=== PATIENT | male | born 1930 | race Caucasian/White ===

== ENCOUNTER 2016-12-26 17:13 | Inpatient (IN) | payer MEDICARE, OTHER ==
[~2016-12-26] VITALS: Ht 172.7 cm; Wt 55.9 kg
[2016-12-26 17:41] LABS: BASO # 0.1 K/mm3 (0.0-0.2); EOS # 0.3 K/mm3 (0.0-0.50); EOS % 2.9 % (0.0-3.0); LARGE UNSTAINED CELL # 0.1 K/mm3 (0.0-0.4); LYMPH # 1.9 K/mm3 (1.5-4.5); LYMPH % 16.1 % (24.0-44.0); MEAN CORPUSCULAR HEMOGLOBIN 30.6 pg (27.0-33.0); MEAN CORPUSCULAR HGB CONC 32.6 g/dl (32.0-36.5); MEAN CORPUSCULAR VOLUME 93.8 fl (80.0-96.0); MONO # 0.4 K/mm3 (0.0-0.8); MONO % 3.8 % (0.0-5.0); NEUTROPHILS # 8.1 K/mm3 (1.8-7.7); PLATELET COUNT, AUTOMATED 210 k/mm3 (150-450); WHITE BLOOD COUNT 10.8 K/mm3 (4.0-10.0)
[2016-12-26 18:11] LABS: ANION GAP 9 MEQ/L (8-16); BLOOD UREA NITROGEN 25 MG/DL (7-18); CALCIUM LEVEL 8.4 MG/DL (8.8-10.2); CARBON DIOXIDE LEVEL 29 MEQ/L (21-32); CHLORIDE LEVEL 101 MEQ/L (98-107); CREATININE FOR GFR 1.02 MG/DL (0.70-1.30); GLOMERULAR FILTRATION RATE > 60.0 (>35); GLUCOSE, FASTING 145 MG/DL (83-110); SODIUM LEVEL 139 MEQ/L (136-145)
[2016-12-26] MEDS ORDERED: DEXTROSE 50% 50 ML SYRINGE IV PRN (20:15)
[2016-12-26] MEDS ORDERED: GLUCOSE 4 GM CHEW TABLET PO PRN (20:15)
[2016-12-26] MEDS ORDERED: PERCOCET 5MG/325MG TAB PO PRN (20:15)
[2016-12-26] MEDS ORDERED: GLUCAGON FOR INJ 1 MG VIAL (J1610) SC PRN (20:15)
[2016-12-26] MEDS ORDERED: ACETAMINOPHEN TAB 650MG DOSE (2X325MG) PO PRN (20:15)
[2016-12-26] MEDS ORDERED: ONDANSETRON 4MG/2ML VIAL (J2405) IV PRN (20:15)
[2016-12-26] MEDS ORDERED: ONDANSETRON 4 MG TAB (S0181) PO PRN (20:15)
[2016-12-26] MEDS: HumaLOG INSULIN (NovoLOG) PER UNIT SC SCH (21:00)
[2016-12-26] MEDS ORDERED: FLOM5CAP PO (21:00)
[2016-12-26] MEDS ORDERED: METF500T PO (21:00)
[2016-12-26] MEDS ORDERED: ASPI81TA7 PO (21:00)
[2016-12-26] MEDS ORDERED: LISI-538 PO (21:00)
[2016-12-26] MEDS ORDERED: ATOR1TAB19 PO (21:00)
--- NOTE | 2016-12-26 21:08 | HPEPDOC ---
Medical History and Physical Date of Admission 12/26/2016 History and Physical HISTORY AND PHYSICAL Date of admission: 12/26/2016 [employer] Worker: Dr. Krishnamurthy Chief complaint: Called in because of pauses on Holter monitor HPI: 86-year-old male with hypertension, BPH, hyperlipidemia, diabetes mellitus type 2, history of kidney stones, who had been being monitored with an outpatient Holter monitor. Per Dr. Krishnamurthy, the patient had been seen in his office on Tuesday for preop clearance for prostatectomy. At that time, he had had some mild tachycardia in the 100 to 110s range, so Dr. Krishnamurthy started him on a small dose of metoprolol and sent him home with a Holter monitor. Dr. Krishnamurthy received a call from the Holter monitor company over the weekend, stating that they were seeing pauses of 3-10s, mostly while the patient was sleeping. Dr. Krishnamurthy revealed the strips and feels that the patient has sick sinus syndrome, and asked the patient to come to the emergency department for admission. Evidently, upon questioning, the patient and family note that the patient has had several episodes of passing out over the last several months. Dr. Krishnamurthy is currently evaluating the patient, but has requested hospitalist admission. Dr. Krishnamurthy told me that he will be calling Dr. Gutierrez and asking him to place the pacemaker tomorrow. Also, per Dr. Krishnamurthy's recommendations, the patient will be admitted to the ICU and the crash cart will be kept by his bedside with pads on. Of note, the patient recently had a pleural effusion in October 2016, which was evaluated by Dr. Hernandez. At that time, he underwent thoracentesis, and pleural fluid studies were unremarkable. The patient states that he has since followed up with Dr. Hernandez, who tells him that the fluid in his lungs is gone. Past medical history: Hypertension, BPH, hyperlipidemia, diabetes mellitus 2, history of kidney stones, new diagnosis sick sinus syndrome Past surgical history: Appendectomy, extraction of kidney stone Family history:: Cancer in his sister, coronary artery disease in his father and brother Social history: The patient denies drinking any alcohol. He currently lives in a house with his son and [id number]. He smokes approximately half a pack per day Allergies: No known drug allergies Review of systems: General: Negative for fever and chills Eyes: Negative for vision changes and ocular discharge ENT: Negative for sore throat and nose bleed; Positive for hearing loss Cardiovascular: Negative for chest pain and palpitations Respiratory: Negative for shortness of breath; positive for occasional cough GI: Negative for nausea, vomiting, diarrhea, constipation Musculoskeletal: Negative for neck and back pain Skin: Negative for rash Neuro: Negative for headache, dizziness, numbness, tingling Psych: Negative for depression and suicidal ideation : Positive for indwelling peck since Aug 2016; per patient, the urine is clear and normal appearing Heme: Negative for bruising and bleeding Home meds: See below Physical exam: Vital signs: Blood pressure 125/73, HR 72, temperature 97.6, O2 sat 96% on room air, RR 16 Gen.: awake, alert, no acute distress Eyes: Extraocular movements intact, normal sclera ENT: Moist mucous membranes Cardiovascular: RRR, no murmurs rubs or gallops Lungs: clear to auscultation on the left, mild rhonchi on right lung base Abdomen: Soft, NT/ND, normal BS Musculoskeletal: normal range of motion Extremities: No peripheral edema Neuro: alert and oriented 3, normal speech, no focal deficits Psych: Normal mood with congruent affect Labs and radiology: See below CBC and BMP are unremarkable Initial troponin is negative BNP 234 1 view chest x-ray shows bullous in the right middle lobe, with questionable consolidation in the right middle lobe Assessment and plan: 86-year-old male with hypertension, BPH, hyperlipidemia, diabetes mellitus type 2, history of kidney stones, who had been being monitored with an outpatient Holter monitor. He is being admitted for sick sinus syndrome, and Dr. Krishnamurthy has plans to place a pacemaker tomorrow. 1. Sick sinus syndrome: The patient has been wearing an outpatient Holter monitor, which has revealed pauses. Dr. Krishnamurthy has requested that the patient be admitted to the ICU with pads on and crash cart at bedside. He told me he will ask Dr. Gutierrez to place a pacemaker tomorrow. We will ensure the patient is nothing by mouth after midnight. Hold home metoprolol. Initial troponin was negative. We will continue to trend these. We will hold his baby aspirin in anticipation of the pacemaker placement. 2. Hypertension: Continue home lisinopril. Hold home metoprolol. 3. BPH: Continue home Flomax. The patient currently has a chronic indwelling Peck catheter, which we will continue. 4. Hyperlipidemia: Continue home statin. 5. Diabetes mellitus type 2: Hold home metformin. Sliding scale insulin while in -house 6. Recent pleural effusion: The patient is now status post thoracentesis, and he states that he has followed up with Dr. Hernandez, who reportedly told him that there is no more fluid in his lungs. Portable chest x-ray reveals a bullous in the right middle lobe, as well as a questionable consolidation. At this time, the patient is afebrile with a normal white count. He is clinically well- appearing, although he does endorse an intermittent cough. On exam, his right lower lung craig do have an occasional rhonchi. I do not believe at this time, that it represents a pneumonia, but we will plan to get a two-view x-ray to better evaluate the lung craig. DVT prophylaxis: SCDs Dispo: place in observation status on the service of Dr. Walker CODE STATUS: Full code Vital Signs see above Laboratory Data Labs 24H Laboratory Tests 2 12/26/16 17:27: Anion Gap 9, B-Type Natriuretic Peptide 234H, White Blood Count 10.8H, Red Blood Count 4.82, Hemoglobin 14.7, Hematocrit 45.2, Mean Corpuscular Volume 93.8 , Mean Corpuscular Hemoglobin 30.6, Mean Corpuscular Hemoglobin Concent 32.6, Red Cell Distribution Width 15.0H, Platelet Count 210, Neutrophils (%) (Auto) 75.0H, Lymphocytes (%) (Auto) 16.1L, Monocytes (%) (Auto) 3.8, Eosinophils (%) ( Auto) 2.9, Basophils (%) (Auto) 1.0, Neutrophils # (Auto) 8.1H, Lymphocytes # ( Auto) 1.9, Monocytes # (Auto) 0.4, Eosinophils # (Auto) 0.3, Basophils # (Auto) 0.1, Blood Urea Nitrogen 25H, Creatinine 1.02, Sodium Level 139, Potassium Level 4.0, Chloride Level 101, Carbon Dioxide Level 29, Calcium Level 8.4L, Total Creatine Kinase 101, Creatine Kinase MB 4.8H, Creatine Kinase MB Relative Index 4.75H, Glomerular Filtration Rate > 60.0, Large Unclassified Cells # 0.1, Large Unclassified Cells % 1.0, Troponin I 0.03 CBC/BMP Laboratory Tests 12/26/16 17:27 Calcium Level 8.4 L, Total Creatine Kinase 101, Red Blood Count 4.82, Mean Corpuscular Volume 93.8, Mean Corpuscular Hemoglobin 30.6, Mean Corpuscular Hemoglobin Concent 32.6, Red Cell Distribution Width 15.0 H, Neutrophils (%) ( Auto) 75.0 H, Lymphocytes (%) (Auto) 16.1 L, Monocytes (%) (Auto) 3.8, Eosinophils (%) (Auto) 2.9, Basophils (%) (Auto) 1.0, Neutrophils # (Auto) 8.1 H , Lymphocytes # (Auto) 1.9, Monocytes # (Auto) 0.4, Eosinophils # (Auto) 0.3, Basophils # (Auto) 0.1 Home Medications Scheduled Aspirin (Aspirin) 81 Mg Tab 81 MG PO QPM Atorvastatin Calcium (Atorvastatin Calcium) 10 Mg Tab 10 MG PO DAILY Lisinopril (Lisinopril) 20 Mg Tab 20 MG PO DAILY Metformin Hydrochloride (Metformin HCl) 500 Mg Tab 500 MG PO TID Tamsulosin Hydrochloride (Flomax) 0.4 Mg Cap 0.4 MG PO DAILY Allergies Coded Allergies: No Known Drug Allergy (Unverified Allergy, Unknown, 02/28/13) LIV IBARRA Dec 26, 2016 21:08
--- NOTE | 2016-12-26 21:55 | EDDOCDS ---
Physician Documentation [facility] Name: Modesto Ray Age: 86 yrs Sex: Male : 1930 Arrival Date: 12/26/2016 Time: 17:13 Bed 1 Private MD: Henri Krishnamurthy MD Disposition: 12/26/16 20:01 Hospitalization ordered by Barbara Loco for Inpatient Admission. Preliminary diagnosis is Sick sinus syndrome. - Bed requested for M ICU. - Status is Inpatient Admission. ttb - Condition is Stable. - Problem is an acute exacerbation. - Symptoms have improved. Historical: - Allergies: no known allergies; - Home Meds: 1. aspirin 81 mg Oral chew once daily 2. tamsulosin 0.4 mg oral cp24 once daily 3. atorvastatin 10 mg oral tab once daily 4. metformin 500 mg Oral tab tid 5. lisinopril 20 mg Oral tab once daily - PMHx: COPD; Diabetes - NIDDM: controlled; Hypertension; Renal Calculi; Hypercholesterolemia; BPH; - PSHx: kidney stone removal; Appendectomy; - Social history: No barriers to communication noted, The patient speaks fluent Bermudian, Smoking status: Patient uses tobacco products, current every day smoker. - Family history: Not pertinent. - : The pt / caregiver states he / she is not on anticoagulants. Home medication list is obtained from family members. - Exposure Risk Screening:: None identified. Vital Signs: 12/26 17:14 BP 138 / 76; Pulse 92; Resp 16 S; Temp 97.2(O); Pulse Ox 94% on R/A; Weight 58.97 kg / dd6 130.01 lbs (R); Height 5 ft. 8 in. (172.72 cm) (R); 17:20 BP 128 / 87 (auto/); ttb 17:23 Pulse 95 MON; Pulse Ox 99% ; ttb 17:30 BP 141 / 63 (auto/); ttb 17:30 Pulse 86 MON; Resp 18 S; Pulse Ox 99% on R/A; ttb 17:45 Pulse 84 MON; Pulse Ox 97% ; ttb 17:45 BP 133 / 61 (auto/); ttb 18:00 Pulse 97 MON; Pulse Ox 97% ; ttb 18:00 BP 102 / 58 (auto/); ttb 18:15 BP 123 / 64 (auto/); ttb 18:15 Pulse 73 MON; Pulse Ox 96% ; ttb 18:30 Pulse 80 MON; Pulse Ox 96% ; ttb 18:30 BP 110 / 63 (auto/); ttb 18:45 BP 111 / 65 (auto/); ttb 18:45 Pulse 73 MON; Pulse Ox 96% ; ttb 19:00 Pulse 85 MON; Pulse Ox 96% ; ttb 19:00 BP 111 / 61 (auto/); ttb 19:15 BP 116 / 72 (auto/); ttb 19:15 Pulse 72 MON; Pulse Ox 97% ; ttb 19:29 Pulse 82 MON; Pulse Ox 97% ; ttb 19:30 BP 121 / 61 (auto/); ttb 19:45 BP 130 / 61 (auto/); ttb 19:45 Pulse 85 MON; Resp 18; Pulse Ox 97% on R/A; Pain 0/10; ttb 20:00 Pulse 72 MON; Pulse Ox 96% ; ttb 20:00 BP 126 / 68 (auto/); ttb 20:15 BP 122 / 75 (auto/); ttb 20:15 Pulse 72 MON; Pulse Ox 95% ; ttb 20:30 BP 125 / 73 (auto/); ttb 20:30 Pulse 74 MON; Pulse Ox 96% ; ttb 20:45 Pulse 72 MON; Pulse Ox 96% ; ttb 20:45 BP 122 / 84 (auto/); ttb 21:00 Pulse 87 MON; Pulse Ox 96% ; ttb 21:00 BP 142 / 73 (auto/); ttb 21:14 Pulse 74 MON; Pulse Ox 96% ; ttb 21:15 BP 123 / 73 (auto/); ttb 21:30 BP 122 / 71 (auto/); ttb 21:30 Pulse 72 MON; Resp 16 S; Pulse Ox 96% ; Pain 0/10; ttb 21:54 Temp 98.5(O); ttb 17:14 Body Mass Index 19.77 (58.97 kg, 172.72 cm) dd6 MDM: 17:24 [employer]ite Renewal Inspector/Pulse Ox/q 30 min VS ordered. fg 17:24 IV Saline Lock ordered. fg 17:24 Rhythm Strip to chart ordered. fg 17:24 Undress patient appropriately for examination ordered. fg 17:25 B-Type Natiuretic Peptide Ordered. EDMS 17:25 Basic Metabolic Profile Ordered. EDMS 17:25 CBC with Diff Ordered. EDMS 17:25 Cardiac Injury Profile Ordered. EDMS 17:25 Troponin Ordered. EDMS 17:25 ECG WITH READING ER PHYS+CARDIAG ordered. EDMS 18:01 Chest, 1 view Ordered. EDMS 19:16 Financial registration complete. [email or web address] 19:17 B-Type Natiuretic Peptide Reviewed. mm11 19:17 Basic Metabolic Profile Reviewed. mm11 19:17 CBC with Diff Reviewed. mm11 19:17 Cardiac Injury Profile Reviewed. mm11 19:17 Troponin Reviewed. mm11 19:18 [facility] Payment Agreement was scanned into [employer] and attached to record. [email or web address] 20:53 CARDIAC MARKER PANEL Ordered. EDMS 20:53 CARDIAC MARKER PANEL Ordered. EDMS 20:53 CARDIAC MARKER PANEL Ordered. EDMS 20:53 CBC WITH DIFFERENTIAL Ordered. EDMS 20:53 BASIC METABOLIC PROFILE Ordered. EDMS 20:53 MAGNESIUM LEVEL Ordered. EDMS 20:55 Chest, 2 view PA, Lat Ordered. EDMS 20:55 Admission / Observation Status ordered. EDMS 20:56 LOW SODIUM DIET ordered. EDMS 20:56 NPO FOR TEST/PROCEDURE ordered. EDMS 21:45 MAGNESIUM LEVEL Ordered. EDMS Signatures: Dispatcher [employer] EDMS Jeffrey Hills, DO [id number] Yvette العلي, RN RN spencerr Qian Alvarado, [facility] ar3 Ronda Ellis RN RN ttb Gill, Frances, MD MD fg Sorenson, Kimberly, Reg Reg [email or web address] The chart was reviewed and I authenticate all verbal orders and agree with the evaluation and treatment provided.Corrections: (The following items were deleted from the chart) 18:01 17:25 Chest, 2 view (PA\E\Lat)+XR ordered. EDMS EDMS Attachments: 19:18 [facility] Payment Agreement [email or web address]
--- NOTE | 2016-12-26 21:55 | EDDOCDS ---
Nurse's Notes [facility] Name: Modesto Ray Age: 86 yrs Sex: Male : 1930 Arrival Date: 12/26/2016 Time: 17:13 Bed 1 Private MD: Henri Krishnamurthy MD Diagnosis: Sick sinus syndrome Presentation: 12/26 17:19 Presenting complaint: daughter states wearing holter monitor over the weekend and jjr called by Dr Krishnamurthy today telling him to report to ED for bradycardia with pauses. Adult Sepsis Screening: The patient does not have new or worsening altered mentation. Patient's respiratory rate is less than 22. Systolic blood pressure is greater than 100. Patient has a qSOFA score of 0- Negative Sepsis Screen. Suicide/Homicide risk assessment- the patient denies having any suicidal and/or homicidal ideations and does not present with any other emotional, behavioral or mental health complaints. Status: Patient is not a dispatcher service or work or dependent. Transition of care: patient was not received from another setting of care. 17:19 Acuity: BJ Level 3 jjr 17:19 Method Of Arrival: Walkin/Carried/Asstd jjr 17:30 81mg as per norm. ttb Triage Assessment: 17:25 General: Appears in no apparent distress, slender, well nourished, well groomed, jjr Behavior is appropriate for age. Pain: Denies pain. Neurological: No deficits noted. Cardiovascular: Chest pain is denied. 17:25 Cardiovascular: Chest pain is described as Pain is 0 out of 10 on a pain scale. ttb radiates Does not radiate. episodes none began no onset of pain. Historical: - Allergies: no known allergies; - Home Meds: 1. aspirin 81 mg Oral chew once daily 2. tamsulosin 0.4 mg oral cp24 once daily 3. atorvastatin 10 mg oral tab once daily 4. metformin 500 mg Oral tab tid 5. lisinopril 20 mg Oral tab once daily - PMHx: COPD; Diabetes - NIDDM: controlled; Hypertension; Renal Calculi; Hypercholesterolemia; BPH; - PSHx: kidney stone removal; Appendectomy; - Social history: No barriers to communication noted, The patient speaks fluent Thai, Smoking status: Patient uses tobacco products, current every day smoker. - Family history: Not pertinent. - : The pt / caregiver states he / she is not on anticoagulants. Home medication list is obtained from family members. - Exposure Risk Screening:: None identified. Screenin:30 Screening information is obtained from the patient. Fall risk: No risks identified. ttb Assistance ADL's: requires no assistance with activities of daily living. Abuse/DV Screen: The patient / caregiver reports he/she is: not in a situation that causes fear, pain or injury. Nutritional screening: On diabetic diet. Advance Directives: There is an active Power of Trend Investigator, son and daughter. home support is adequate. Assessment: 17:37 General: Appears in no apparent distress, comfortable, slender, Behavior is appropriate ttb for age, cooperative, pleasant. Pain: Denies pain. Neurological: Level of Consciousness is awake, alert, Moves all extremities. Speech is normal, Facial symmetry appears normal. EENT: [place]. Cardiovascular: Heart tones S1 S2 present Rhythm is irregular Chest pain is denied. Respiratory: Airway is patent Respiratory effort is even, unlabored, Respiratory pattern is regular, symmetrical, Breath sounds with rhonchi bilaterally. the patient has mild shortness of breath Denies cough, shortness of breath. GI: Denies nausea, vomiting, pain. Derm: Skin is normal. 18:30 Reassessment: Patient appears in no apparent distress at this time. pt resting on ttb stretcher. NAD noted. Pt remains on monitor with family at bedside. Awaiting MDvisit.. Neurological: Level of Consciousness is awake, alert. Cardiovascular: Rhythm is atrial flutter 3:1 Chest pain is denied. Respiratory: Airway is patent Denies cough, shortness of breath. 19:30 Reassessment: Patient appears in no apparent distress at this time. General: Appears in ttb no apparent distress, comfortable. Pain: Denies pain. Neurological: Level of Consciousness is awake, alert. Cardiovascular: Rhythm is atrial flutter Chest pain is denied. 19:30 Adult Sepsis Screening: The patient does not have new or worsening altered mentation. ttb Patient's respiratory rate is less than 22. Systolic blood pressure is greater than 100. Patient has a qSOFA score of 0- Negative Sepsis Screen. 20:00 General: Cardiology in to see pt at this time. Pt to be admitted to ICU for procedure. ttb 20:30 General: Appears in no apparent distress, comfortable, Hospitalist in to see pt at this ttb time. Family remains at bedside.. 21:00 Reassessment: Patient appears in no apparent distress at this time. peck bag changed ttb per pt request. Pt able to move on stretcher without diff. . 21:15 General: TIMBER FALLER contact, unavailable at this time.. ttb 21:40 General: Dr Loco aware of pt having 19 beat run of V tach. Pt awake and alert, sls1 denies sob or chest pain. Strips documented, no new orders given. 21:42 General: Vtach captured at this time by CN. Pt continues to rest on stretcher with no ttb distress noted. Family at bedside. TIMBER FALLER contacted again -- will return phonecall.... 21:52 General: report given to GISELE Diehl on ICU. Pt transferred at this time.. ttb Vital Signs: 17:14 BP 138 / 76; Pulse 92; Resp 16 S; Temp 97.2(O); Pulse Ox 94% on R/A; Weight 58.97 kg dd6 (R); Height 5 ft. 8 in. (172.72 cm) (R); 17:20 BP 128 / 87 (auto/); ttb 17:23 Pulse 95 MON; Pulse Ox 99% ; ttb 17:30 BP 141 / 63 (auto/); ttb 17:30 Pulse 86 MON; Resp 18 S; Pulse Ox 99% on R/A; ttb 17:45 Pulse 84 MON; Pulse Ox 97% ; ttb 17:45 BP 133 / 61 (auto/); ttb 18:00 Pulse 97 MON; Pulse Ox 97% ; ttb 18:00 BP 102 / 58 (auto/); ttb 18:15 BP 123 / 64 (auto/); ttb 18:15 Pulse 73 MON; Pulse Ox 96% ; ttb 18:30 Pulse 80 MON; Pulse Ox 96% ; ttb 18:30 BP 110 / 63 (auto/); ttb 18:45 BP 111 / 65 (auto/); ttb 18:45 Pulse 73 MON; Pulse Ox 96% ; ttb 19:00 Pulse 85 MON; Pulse Ox 96% ; ttb 19:00 BP 111 / 61 (auto/); ttb 19:15 BP 116 / 72 (auto/); ttb 19:15 Pulse 72 MON; Pulse Ox 97% ; ttb 19:29 Pulse 82 MON; Pulse Ox 97% ; ttb 19:30 BP 121 / 61 (auto/); ttb 19:45 BP 130 / 61 (auto/); ttb 19:45 Pulse 85 MON; Resp 18; Pulse Ox 97% on R/A; Pain 0/10; ttb 20:00 Pulse 72 MON; Pulse Ox 96% ; ttb 20:00 BP 126 / 68 (auto/); ttb 20:15 BP 122 / 75 (auto/); ttb 20:15 Pulse 72 MON; Pulse Ox 95% ; ttb 20:30 BP 125 / 73 (auto/); ttb 20:30 Pulse 74 MON; Pulse Ox 96% ; ttb 20:45 Pulse 72 MON; Pulse Ox 96% ; ttb 20:45 BP 122 / 84 (auto/); ttb 21:00 Pulse 87 MON; Pulse Ox 96% ; ttb 21:00 BP 142 / 73 (auto/); ttb 21:14 Pulse 74 MON; Pulse Ox 96% ; ttb 21:15 BP 123 / 73 (auto/); ttb 21:30 BP 122 / 71 (auto/); ttb 21:30 Pulse 72 MON; Resp 16 S; Pulse Ox 96% ; Pain 0/10; ttb 21:54 Temp 98.5(O); ttb 17:14 Body Mass Index 19.77 (58.97 kg, 172.72 cm) dd6 Vitals: 17:14 Log In Time: December 26, 2016 at 17:12. dd6 17:16 RN notified that patient meets Red Flag criteria. dd6 ED Course: 17:14 Patient visited by Geovanny Ritter PCA. dd6 17:14 Henri Krishnamurthy is Private Physician. dd6 17:14 Patient moved to Waiting dd6 17:19 Patient moved to 1 dy 17:21 Triage Initiated jjr 17:23 Mela España MD is Attending Physician. fg 17:23 Patient visited by Mela España MD. fg 17:25 Patient visited by Yvette العلي RN. jjr 17:30 The patient / caregiver is instructed regarding the plan of care and ED course. ttb Accompanied by Family Member, Patient has correct armband on for positive identification. Placed in gown. Bed in low position. Call light in reach. Side rails up X2. advertising columnist on. Pulse ox on. NIBP on. 17:30 Inserted peripheral IV: 20gauge IV in right antecubital area and blood collected. ttb Patient tolerated the procedure well. Labs drawn. (by ED staff). 17:39 Patient visited by José Miguel Tolliver. rn1 17:39 EKG done. (by ED staff). Reviewed by Mela España MD. rn1 17:41 Patient visited by Ronda Ellis RN. ttb 18:17 Patient visited by Peg Catherine RN. kc3 19:03 Patient visited by Jered Schroeder PCA. kb5 19:15 Attending Physician role handed off by Mela España MD mm11 19:15 Jeffrey Hills DO is Attending Physician. mm11 19:18 [facility] Payment Agreement was scanned into [employer] and attached to record. ks16 19:39 Patient visited by Jeffrey Hills DO. mm11 20:00 Patient visited by Ronda Ellis RN. ttb 20:01 Patient visited by Ronda Ellis RN. ttb 20:01 Barbara Loco is Hospitalizing Provider. mm11 20:17 Sherwin Vaz rhinologist. nq 20:44 Patient visited by Ronda Ellis RN. ttb 21:46 Patient visited by Ronda Ellis RN. ttb 21:52 No procedures done that require assistance. ttb Order Results: Lab Order: B-Type Natiuretic Peptide; SPEC'M 12/26/16 17:27 Test: BRAIN NATRIURETIC PEPTIDE; Value: 234; Range: <100; Abnormal: Above high normal; Units: PG/ML; Status: F Lab Order: Basic Metabolic Profile; SPEC'M 12/26/16 17:27 Test: GLUCOSE, FASTING; Value: 145; Range: 83-110; Abnormal: Above high normal; Units: MG/DL; Status: F Test: BLOOD UREA NITROGEN; Value: 25; Range: 7-18; Abnormal: Above high normal; Units: MG/DL; Status: F Test: CREATININE FOR GFR; Value: 1.02; Range: 0.70-1.30; Units: MG/DL; Status: F Test: GLOMERULAR FILTRATION RATE; Value: > 60.0; Range: >35; Status: F Test: SODIUM LEVEL; Value: 139; Range: 136-145; Units: MEQ/L; Status: F Test: POTASSIUM SERUM; Value: 4.0; Range: 3.5-5.1; Units: MEQ/L; Status: F Test: CHLORIDE LEVEL; Value: 101; Range: 98-107; Units: MEQ/L; Status: F Test: CARBON DIOXIDE LEVEL; Value: 29; Range: 21-32; Units: MEQ/L; Status: F Test: ANION GAP; Value: 9; Range: 8-16; Units: MEQ/L; Status: F Test: CALCIUM LEVEL; Value: 8.4; Range: 8.8-10.2; Abnormal: Below low normal; Units: MG/DL; Status: F Test Note: ; Units are mL/min/1.73 m2 Chronic Kidney Disease Staging per NKF: Stage I & II GFR >=60 Normal to Mildly Decreased Stage III GFR 30-59 Moderately Decreased Stage IV GFR 15-29 Severely Decreased Stage V GFR <15 Very Little GFR Left ESRD GFR <15 on FITNESS CENTRE MANAGER Lab Order: CBC with Diff; SPEC'M 12/26/16 17:27 Test: WHITE BLOOD COUNT; Value: 10.8; Range: 4.0-10.0; Abnormal: Above high normal; Units: K/mm3; Status: F Test: RED BLOOD COUNT; Value: 4.82; Range: 4.30-6.10; Units: M/mm3; Status: F Test: HEMOGLOBIN; Value: 14.7; Range: 14.0-18.0; Units: g/dl; Status: F Test: HEMATOCRIT; Value: 45.2; Range: 42.0-52.0; Units: %; Status: F Test: MEAN CORPUSCULAR VOLUME; Value: 93.8; Range: 80.0-96.0; Units: fl; Status: F Test: MEAN CORPUSCULAR HEMOGLOBIN; Value: 30.6; Range: 27.0-33.0; Units: pg; Status: F Test: MEAN CORPUSCULAR HGB CONC; Value: 32.6; Range: 32.0-36.5; Units: g/dl; Status: F Test: RED CELL DISTRIBUTION WIDTH; Value: 15.0; Range: 11.5-14.5; Abnormal: Above high normal; Units: %; Status: F Test: PLATELET COUNT, AUTOMATED; Value: 210; Range: 150-450; Units: k/mm3; Status: F Test: NEUTROPHILS %; Value: 75.0; Range: 36.0-66.0; Abnormal: Above high normal; Units: %; Status: F Test: LYMPH %; Value: 16.1; Range: 24.0-44.0; Abnormal: Below low normal; Units: %; Status: F Test: MONO %; Value: 3.8; Range: 0.0-5.0; Units: %; Status: F Test: EOS %; Value: 2.9; Range: 0.0-3.0; Units: %; Status: F Test: BASO %; Value: 1.0; Range: 0.0-1.0; Units: %; Status: F Test: LARGE UNSTAINED CELL %; Value: 1.0; Range: 0.0-4.0; Units: %; Status: F Test: NEUTROPHILS #; Value: 8.1; Range: 1.8-7.7; Abnormal: Above high normal; Units: K/mm3; Status: F Test: LYMPH #; Value: 1.9; Range: 1.5-4.5; Units: K/mm3; Status: F Test: MONO #; Value: 0.4; Range: 0.0-0.8; Units: K/mm3; Status: F Test: EOS #; Value: 0.3; Range: 0.0-0.50; Units: K/mm3; Status: F Test: BASO #; Value: 0.1; Range: 0.0-0.2; Units: K/mm3; Status: F Test: LARGE UNSTAINED CELL #; Value: 0.1; Range: 0.0-0.4; Units: K/mm3; Status: F Lab Order: Cardiac Injury Profile; SPEC'M 12/26/16 17:27 Test: CPK CREATINE PHOSPHOKINASE; Value: 101; Range: 39-308; Units: U/L; Status: F Test: CK-MB VALUE MASS; Value: 4.8; Range: 0.0-3.6; Abnormal: Above high normal; Units: NG/ML; Status: F Test: MB/CK RELATIVE INDEX; Value: 4.75; Range: < OR =4; Abnormal: Above high normal; Status: F Test Note: ; DIAGNOSIS CRITERIA MMB ng/ml Relative Index (RI) NON-AMI < or = 5 N/A RENEE ZONE > 5 < or = 4 AMI > 5 > 4 Lab Order: Troponin; SPEC'M 12/26/16 17:27 Test: TROPONIN I; Value: 0.03; Range: < 0.10; Units: NG/ML; Status: F Test Note: ; Troponin I Reference Interval for 3scale LOCI: 99th Percentile= 0.00-0.045 ng/ml Risk Stratification: <= 0.10 ng/ml Decreased Risk for Adverse Clinical Events. 0.10-1.50 ng/ml Increased Risk for Adverse Clinical Events. Evaluation of additional criterion and/or repeat testing in 2-6 hours is suggested to rule out myocardial damage. >= 1.50 ng/ml Indicative of Myocardial Injury. Outcome: 17:30 No special radiology studies were completed. ttb 20:01 Decision to Hospitalize by Provider. mm11 21:30 Admission hand-off: Report called to TIMBER FALLER - unavailable at this time. ttb 21:45 Discharge Assessment: Patient awake and alert. patient administered narcotics - no. ttb 21:52 The following High Risk Discharge criteria are identified: Yes, admit to ICU/OR. ttb Admitted to ICU accompanied by nurse, accompanied by tech, family with patient, via stretcher, on monitor, with chart. Condition: stable. Instructed on admission process. Admission hand-off: Report called to GISELE Diehl on ICU. Property :Personal belongings accompany Pt. wallet given to family. 21:54 Patient left the ED. ttb Signatures: Jett Tobin, RN Jered Grissom, FURNITURE CLEANER FURNITURE CLEANER kb5 Jeffrey Hills DO DO mm11 Yvette العلي, RN RN Geovanny Greer, FURNITURE CLEANER FURNITURE CLEANER dd6 Lenka Muller RN RN sls1 Sherwin Vaz Teresa, RN RN ttb José Miguel Tolliver rn1 Mela España MD MD fg Crane, KelsiRN RN kc3 Kat Benton, Reg Reg ks16 Corrections: (The following items were deleted from the chart) 20:00 19:59 Aspirin was not taken prior to arrival. ttb ttb MTDD
[2016-12-26 22:00] VITALS: BP_SYST 122; BP_SYST 139; BP_DIAS 60; BP_DIAS 73
[2016-12-26 22:08] LABS: MAGNESIUM LEVEL 1.4 MG/DL (1.8-2.4)
[2016-12-26] MEDS ORDERED: PREVNAR 13 VACCINE SYRINGE (CPT CODE:90670) IM SCH (23:45)
[2016-12-27] VITALS (12 sets, daily range): BP systolic 115–159; BP diastolic 53–85
[2016-12-27 05:02] LABS: BASO # 0.1 K/mm3 (0.0-0.2); BASO % 1.1 % (0.0-1.0); EOS # 0.3 K/mm3 (0.0-0.50); EOS % 3.3 % (0.0-3.0); LARGE UNSTAINED CELL # 0.1 K/mm3 (0.0-0.4); LARGE UNSTAINED CELL % 1.3 % (0.0-4.0); LYMPH # 2.3 K/mm3 (1.5-4.5); LYMPH % 24.5 % (24.0-44.0); MEAN CORPUSCULAR HEMOGLOBIN 30.1 pg (27.0-33.0); MEAN CORPUSCULAR HGB CONC 32.2 g/dl (32.0-36.5); MEAN CORPUSCULAR VOLUME 93.5 fl (80.0-96.0); MONO # 0.5 K/mm3 (0.0-0.8); MONO % 5.8 % (0.0-5.0); NEUTROPHILS # 5.7 K/mm3 (1.8-7.7); NEUTROPHILS % 64.1 % (36.0-66.0); PLATELET COUNT, AUTOMATED 191 k/mm3 (150-450); WHITE BLOOD COUNT 8.8 K/mm3 (4.0-10.0)
[2016-12-27 05:15] LABS: ANION GAP 7 MEQ/L (8-16); BLOOD UREA NITROGEN 19 MG/DL (7-18); CALCIUM LEVEL 8.1 MG/DL (8.8-10.2); CARBON DIOXIDE LEVEL 31 MEQ/L (21-32); CHLORIDE LEVEL 104 MEQ/L (98-107); CREATININE FOR GFR 0.87 MG/DL (0.70-1.30); GLOMERULAR FILTRATION RATE > 60.0 (>35); GLUCOSE, FASTING 85 MG/DL (83-110); MAGNESIUM LEVEL 1.3 MG/DL (1.8-2.4); POTASSIUM SERUM 4.1 MEQ/L (3.5-5.1); SODIUM LEVEL 142 MEQ/L (136-145)
[2016-12-27] MEDS: HumaLOG INSULIN (NovoLOG) PER UNIT SC SCH ×4 (07:30→20:42)
[2016-12-27] MEDS ORDERED: LR 1,000 ML IV SCH ×2 (08:30→18:00)
[2016-12-27] MEDS: ATORVASTATIN 10 MG TAB PO SCH (08:46)
[2016-12-27] MEDS: TAMSULOSIN 0.4 MG CAP PO SCH (08:46)
[2016-12-27] MEDS: LISINOPRIL 20 MG TAB PO SCH (08:46)
--- NOTE | 2016-12-27 11:24 | IPN ---
DATE: 12/27/2016 Mr. Ray has no complaints today. He tells me that he slept well and is awaiting pacemaker placement. Denies any chest pain or shortness of breath. Vital Signs: Blood pressure is 148/68. Heart rate is in 70s to 90s, but currently at the time of my evaluation is 110. He is afebrile. Saturation is 97% in room air. He is alert, oriented and appropriate. His jugular venous distention (JVP) is not elevated. Lungs are relatively clear, even though there are some rare rhonchi. Heart exam reveals regular tachycardia. I do not appreciate gallop or rub. Abdomen is soft, nontender. No peripheral edema. Neurologically, he is very hard of hearing, but otherwise intact. Basic metabolic panel is within normal range other than magnesium of 1.3. Basic metabolic panel is normal. ASSESSMENT/PLAN: Mr. Ray is a 86-year-old man who apparently was seen by Dr. Krishnamurthy last week and started on low-dose beta robby because of mild tachycardia. Simultaneously, Holter monitor was applied and revealed episodes of sinus arrest up to 8 or 9 seconds at a time. Unfortunately, I do not have those available for the record, it is based on personal communication with Dr. Krishnamurthy. The patient is tentatively scheduled for permanent pacemaker placement later today. He has not been on any anticoagulation and he is hemodynamically stable. He denies any history of syncope.
--- NOTE | 2016-12-27 11:25 | REP ---
Clinical: Chest pain. Comparison: 11 10 16. Findings: Opacity involving the basilar segment right upper lobe as well as scattered perihilar and basilar opacities are again identified. No obvious effusion. No pneumothorax. Mediastinum and cardiac silhouette normal. Skeletal structures are intact. Impression: Scattered areas of infiltrate primarily involving the basilar right upper lobe as well as perihilar and bilateral lower lobes. Signed by Jairo Grajeda MD 12/27/2016 02:49 A
[2016-12-27] MEDS ORDERED: SLF 3 ML SYR IV PRN (11:45)
[2016-12-27] MEDS ORDERED: LIDOCAINE 1% SDV INJ 30 ML VIAL As Ordered ONE (11:57)
[2016-12-27] MEDS ORDERED: ISOVUE-300 61% 50ML VIAL (Q9967) As Ordered ONE (11:57)
--- NOTE | 2016-12-27 12:49 | REP ---
Chest x-ray: Two views. History: Possible infiltrate on portable chest x-ray from December 26, 2016. Findings: The November 10, 2016 prior chest x-ray is also reviewed. Right upper lobe and right middle lobe distribution infiltrate and/or atelectasis again seen unchanged from recent chest x-ray and slightly improved when compared with the November 10, 2016 study. The left lung is clear. No pleural effusion is seen. No new infiltrate is noted. Heart is not enlarged. EKG electrodes are seen. Impression: Right upper and middle lobe distribution infiltrate versus atelectasis, somewhat improved. No new infiltrate seen. Signed by Perfecto Leong MD 12/27/2016 01:25 P
[2016-12-27] MEDS: SLF 3 ML SYR IV SCH ×2 (14:21→20:43)
--- NOTE | 2016-12-27 14:25 | IPNPDOC ---
Assessment/Plan Date Seen The patient was seen on 12/27/16. Plan / VTE VTE Prophylaxis Ordered?: Yes Plan Plan Text 1. Sick sinus syndrome: Patient noted to have 8-9 second pauses on holter monitor as outpatient while being monitored by Dr. Krishnamurthy as an outpatient for preoperative work up , However, he has been asymptomatic during these events No overnight events here Betablocker held Patient scheduled for a permanent pacemaker placement later today 2. Hypertension Continue home lisinopril. Hold home metoprolol. 3. BPH Continue home Flomax. 4. Hyperlipidemia Continue home statin. 5. Diabetes mellitus type 2 Sliding scale insulin 6. Hypomagnesemia Serum Mag noted to be 1.3 this AM IV Mag Run ordered Will check levels in AM DVT prophylaxis: SCDs Dispo: Anticipate D/C in the next 24 hrs, pending cardiac clearance. Subjective Review of Systems CC/HPI The patient is a 86-year-old male admitted with a reason for visit of Sick Sinus Syndrome. General: Denies: Chills, Night Sweats Constitutional: Denies: Chills, Fever Eyes: Denies: Pain, Vision change ENT: Denies: Ear Pain, Head Aches Skin: Denies: Lesions, Rash Pulmonary: Denies: Cough, Dyspnea Cardiovascular: Denies: Chest Pain, Palpitations Gastrointestinal: Denies: Nausea, Vomiting Genitourinary: Denies: Dysuria, Frequency Hematologic: Denies: Bleeding Excessively, Bruising Objective Physical Examination General Exam: Positive: Alert, Cooperative, No Acute Distress ENT Exam: Positive: Atraumatic, Mucous membr. moist/pink Chest Exam: Positive: Clear to auscultation, Normal air movement Heart Exam: Positive: Normal S1, Normal S2, Rate Normal Abdomen Exam: Positive: Soft, Negative: Tenderness Extremity Exam: Negative: Swelling, Tenderness Vital Signs/I&O Vital Signs Date Time Temp Pulse Resp B/P Pulse Ox O2 Delivery O2 Flow Rate FiO2 12/27/16 12:00 97.9 108 18 146/80 94 Room Air 12/26/16 22:00 98 I&O- Last 24 Hours up to 6 AM 12/27/16 06:00 Intake Total 0 ml Output Total 800 ml Balance -800 ml Laboratory Data Labs 24H Laboratory Tests 2 12/26/16 17:27: Anion Gap 9, B-Type Natriuretic Peptide 234H, White Blood Count 10.8H, Red Blood Count 4.82, Hemoglobin 14.7, Hematocrit 45.2, Mean Corpuscular Volume 93.8 , Mean Corpuscular Hemoglobin 30.6, Mean Corpuscular Hemoglobin Concent 32.6, Red Cell Distribution Width 15.0H, Platelet Count 210, Neutrophils (%) (Auto) 75.0H, Lymphocytes (%) (Auto) 16.1L, Monocytes (%) (Auto) 3.8, Eosinophils (%) ( Auto) 2.9, Basophils (%) (Auto) 1.0, Neutrophils # (Auto) 8.1H, Lymphocytes # ( Auto) 1.9, Monocytes # (Auto) 0.4, Eosinophils # (Auto) 0.3, Basophils # (Auto) 0.1, Blood Urea Nitrogen 25H, Creatinine 1.02, Sodium Level 139, Potassium Level 4.0, Chloride Level 101, Carbon Dioxide Level 29, Calcium Level 8.4L, Total Creatine Kinase 101, Creatine Kinase MB 4.8H, Creatine Kinase MB Relative Index 4.75H, Glomerular Filtration Rate > 60.0, Large Unclassified Cells # 0.1, Large Unclassified Cells % 1.0, Magnesium Level 1.4L, Troponin I 0.03 12/26/16 22:15: Bedside Glucose (Misc Panel) 94 12/26/16 23:31: Total Creatine Kinase 67, Creatine Kinase MB 3.4, Creatine Kinase MB Relative Index 5.07H, Troponin I 0.04# 12/27/16 04:14: Anion Gap 7L, White Blood Count 8.8, Red Blood Count 4.74, Hemoglobin 14.3, Hematocrit 44.3, Mean Corpuscular Volume 93.5, Mean Corpuscular Hemoglobin 30.1 , Mean Corpuscular Hemoglobin Concent 32.2, Red Cell Distribution Width 15.0H, Platelet Count 191, Neutrophils (%) (Auto) 64.1, Lymphocytes (%) (Auto) 24.5, Monocytes (%) (Auto) 5.8H, Eosinophils (%) (Auto) 3.3H, Basophils (%) (Auto) 1.1H, Neutrophils # (Auto) 5.7, Lymphocytes # (Auto) 2.3, Monocytes # (Auto) 0.5 , Eosinophils # (Auto) 0.3, Basophils # (Auto) 0.1, Blood Urea Nitrogen 19H, Creatinine 0.87, Sodium Level 142, Potassium Level 4.1, Chloride Level 104, Carbon Dioxide Level 31, Calcium Level 8.1L, Glomerular Filtration Rate > 60.0, Large Unclassified Cells # 0.1, Large Unclassified Cells % 1.3, Magnesium Level 1.3L 12/27/16 07:33: Creatine Kinase MB 3.1, Creatine Kinase MB Relative Index 4.42H, Total Creatine Kinase 70, Troponin I 0.04 12/27/16 12:11: Bedside Glucose (Misc Panel) 80L CBC/BMP Laboratory Tests 12/26/16 17:27 Calcium Level 8.4 L, Total Creatine Kinase 101, Red Blood Count 4.82, Mean Corpuscular Volume 93.8, Mean Corpuscular Hemoglobin 30.6, Mean Corpuscular Hemoglobin Concent 32.6, Red Cell Distribution Width 15.0 H, Neutrophils (%) ( Auto) 75.0 H, Lymphocytes (%) (Auto) 16.1 L, Monocytes (%) (Auto) 3.8, Eosinophils (%) (Auto) 2.9, Basophils (%) (Auto) 1.0, Neutrophils # (Auto) 8.1 H , Lymphocytes # (Auto) 1.9, Monocytes # (Auto) 0.4, Eosinophils # (Auto) 0.3, Basophils # (Auto) 0.1 12/27/16 04:14 Calcium Level 8.1 L, Red Blood Count 4.74, Mean Corpuscular Volume 93.5, Mean Corpuscular Hemoglobin 30.1, Mean Corpuscular Hemoglobin Concent 32.2, Red Cell Distribution Width 15.0 H, Neutrophils (%) (Auto) 64.1, Lymphocytes (%) (Auto) 24.5, Monocytes (%) (Auto) 5.8 H, Eosinophils (%) (Auto) 3.3 H, Basophils (%) ( Auto) 1.1 H, Neutrophils # (Auto) 5.7, Lymphocytes # (Auto) 2.3, Monocytes # ( Auto) 0.5, Eosinophils # (Auto) 0.3, Basophils # (Auto) 0.1 FSBS Laboratory Tests Test 12/26/16 22:15 12/27/16 12:11 Range/Units Bedside Glucose (Misc Panel) 94 80 83-110 MG/DL Microbiology Microbiology 12/26/16 MRSA Screen, Received Pending DEVI BLAND MD Dec 27, 2016 14:25
[2016-12-27] MEDS ORDERED: MAG SULF 1GM/100ML (MAG RUN) 1 GM in APPROPRIATE DILUENT 1 EA IV ONE ×2 (14:30→18:00)
[2016-12-27] MEDS ORDERED: AMIODARONE 150MG/3ML INJ (J0282) As Ordered ONE (15:16)
[2016-12-27] MEDS ORDERED: ceFAZolin 2 GM/D5W 50 ML IV BAG (J0690) As Ordered ONE (15:29)
[2016-12-27] MEDS ORDERED: LIDOCAINE 1% SDV INJ 30 ML VIAL XX ONE (16:19)
[2016-12-27] MEDS ORDERED: MIDAZOLAM INJ 2 MG/2 ML VIAL (J2250) As Ordered ONE (16:21)
[2016-12-27] MEDS ORDERED: ePHEDrine SULFATE 25 MG/5 ML(5MG/ML) SYRINGE As Ordered ONE (16:21)
[2016-12-27] MEDS ORDERED: fentaNYL 100 MCG/2 ML INJECTION (J3010) As Ordered ONE (16:21)
[2016-12-27] MEDS ORDERED: PHENYLephrine HCL 500 MCG/5 ML (100MCG/ML) SYRINGE (J2370) As Ordered ONE (16:21)
[2016-12-27] MEDS ORDERED: PROPOFOL 200 MG/20 ML VIAL As Ordered ONE ×2 (16:22)
[2016-12-27] MEDS ORDERED: ONDANSETRON 4MG/2ML VIAL (J2405) IV PRN (18:00)
[2016-12-27] MEDS ORDERED: METOPROLOL TART 50 MG TAB As Ordered ONE (18:00)
[2016-12-27] MEDS ORDERED: METOPROLOL TART 25 MG TABLET PO SCH (18:00)
[2016-12-27] MEDS ORDERED: MAG SULF 1GM/100ML (MAG RUN) 100 ML IV SCH (18:30)
--- NOTE | 2016-12-27 18:34 | REP ---
AP PORTABLE CHEST: 12/27/2016 at 05:29 PM. Clinical history: Status post pacemaker placement. Comparison: Chest x-ray 12/27/2016, 12/26/2016 portable chest. [place] and a pacer unit over the left upper chest wall noted with single lead coursing through the mediastinum into the heart terminating in the region of the right ventricle. Cardiac silhouette unchanged. Infiltrates right upper lobe and patchy bibasilar atelectatic or infiltrative changes noted. Hyperinflation with COPD and some pulmonary artery hypertension evident. Tortuous ectatic aorta without aneurysm. Airway intact. There is no pneumothorax and I see no left pleural effusion on the frontal view. Impression: 1. Single lead pacer in the left upper chest with lead terminating in the right ventricle. No effusion or left-sided pneumothorax. No other change. Signed by Chuckie Arenas MD 12/27/2016 07:42 P
--- NOTE | 2016-12-27 18:46 | RO ---
DATE OF PROCEDURE: 12/27/2016 PROCEDURE: 1. Attempted rapid atrial overdrive pacing for conversion of atrial flutter. 2. Implantation of single chamber permanent pacemaker. IMPLANTING TRAILER STEERER: Dr. Antwan Gutierrez ANESTHESIOLOGIST: Dr. Misbah Morgan PREOPERATIVE DIAGNOSES 1. Intermittent high-grade arteriovenous (AV) block. 2. Chronic atrial flutter. POSTOPERATIVE DIAGNOSES: 1. Intermittent high-grade arteriovenous (AV) block. 2. Chronic atrial flutter. TYPE OF ANESTHESIA: Monitored local anesthesia. CLINICAL SUMMARY: This 86-year-old gentleman with history of hypertension, type 2 diabetes mellitus, hyperlipidemia and benign prostatic hypertrophy was found to have atrial flutter incidentally on a preoperative cardiac evaluation by Dr. Krishnamurthy. A Holter monitor was performed last week and he was instructed to come to the emergency room a yesterday morning with his monitor showing intermittent high-grade AV block with recurrent pauses of 8-10 seconds. Remarkably the patient has been free of cardiovascular complaint and is able to chop wood without difficulty. Pleasant elderly male, somewhat slim but no pallor or icterus. Heart rate 96 beats per minute and irregular, blood pressure 146/74 supine, respiratory rate 18 per minute. Normal oral moisture. Trachea midline. Neck veins were not elevated. Slightly increased anteroposterior chest diameter with good air entry over both lung craig with scattered inspiratory rales but no expiratory rhonchi. Apical impulse was not palpable. Heart sounds were somewhat variable. No audible gallop or murmur. Soft abdomen with good peripheral pulses. No dependent edema. EKG showed under lying atrial flutter with controlled ventricular response. There was an incomplete left bundle branch block with poor precordial R-wave progression and lateral ST/T-wave abnormalities. His blood work showed a normal complete blood count. Electrolytes on admission were normal with BUN 25, creatinine 1.0, random glucose 145. His chest x-ray showed a normal heart size with unfolded thoracic aorta but normal pulmonary vasculature. There were scattered consolidations affecting the right middle lobe? Fibrosis. DESCRIPTION: In the fasting state, following informed consent and Ancef 2 grams intravenous (IV) premedication, the patient was taken to the operating theater. Numerous skin electrodes were applied to facilitate continuous electrocardiographic monitoring. The left subclavian region was prepped and draped in the usual fashion and the skin was infiltrated with 1% Xylocaine. The left axillary vein was catheterized using the micropuncture technique. A 5-cm linear incision was made several centimeters below and parallel to the left clavicle. Dissection was carried down to the level of the pectoralis fascia. A pocket was fashioned below level of the incision line. A single current pacing lead was then advanced under fluoroscopic control to the right atrial appendage. At this point we attempted to perform rapid atrial overdrive pacing of his atrial flutter. A series of rapid atrial bursts of 20 seconds were administered. Starting with a cycle length of 190 milliseconds then 180 milliseconds, then 170 milliseconds and finally 160 milliseconds to no avail. We finally converted him from atrial flutter to atrial fibrillation. Further attempts to convert his atrial tachyarrhythmia were abandoned. The bipolar active fixation steroid eluding pacing lead was then positioned to the right ventricular apex under fluoroscopic electrocardiographic control. The ventricular lead ([employer] model number 2088TC/58, serial number [id number]) measurements were: Simulation threshold 0.6V/0.4 ms/ impedance 622 ohms. The R wave amplitude measured 26.6 mV. This lead was then secured in position with the sleeves sutured at its insertion site. It was then connected to a single chamber pulse generator ([employer] model number UU9171, serial number [id number]) and appropriate VVI pacing was documented. We did not activate his rate response hoping to facilitate his spontaneous conduction as much as possible. The device was placed. The pocket and secured in position with a suture through the upper right-hand corner of the epoxy header. The subcutaneous tissues were approximated using a running chromic suture and skin was closed using lisa. Dry dressing was applied. The patient was returned to recovery room in good condition. Estimated blood loss less than 50 mL. No apparent complications. His postoperative portable upright chest x-ray showed good lead position with no pneumothorax. His postoperative EKG showed underlying atrial fibrillation with controlled ventricular response averaging 98 beats per minute (BPM). In light of the spontaneous rates as fast in the 120 beats per minute at rest, he will now be started on metoprolol 25 mg twice a day. He will also be started on Xarelto 15 mg daily (dose adjusted for age). December 29, 2016. [facility]
[2016-12-27] MEDS ORDERED: MAG SULF 1GM/100ML (MAG RUN) 100 ML IV ONE (19:00)
--- NOTE | 2016-12-27 19:29 | ECGEPIP ---
Stationary ECG Study [facility] Test Date: 2016-12-27 Pat Name: RONALD PRADO Department: Room: [place] [address] Gender: M Buffer Inflated Pad: HENRI : 1930 Requested By: Antwan Gutierrez Order Number: [id number] Reading MD: Cristo Willoughby Measurements Intervals [place] Rate: 98 P: [place]: 0 QRS: -36 QRSD: 116 T: 88 QT: 361 QTc: 461 Interpretive Statements ATRIAL FIBRILLATION MARKED LEFT AXIS DEVIATION SEPTAL MYOCARDIAL INFARCTION, OF INDETERMINATE AGE, CANNOT R/O NO PRIOR Electronically Signed On 12-27-2016 19:29:11 EST by Cristo Willoughby
--- NOTE | 2016-12-27 20:29 | CR ---
DATE OF CONSULTATION: 12/26/2016 REFERRING PROVIDER: Hospitalist on-call. PRIMARY CARE PROVIDER: Dr. Macy Scott REASON FOR CONSULTATION: Sick sinus syndrome. HISTORY OF PRESENT ILLNESS: 86-year-old male who was seen in the office on 12/24/2016, for cardiac clearance prior to undergoing transurethral resection of the prostate (TURP) by Dr. Abdi under general anesthesia, to be scheduled. He was found to be in atrial flutter, mildly tachycardic. He was started on a small dose of beta robby with metoprolol tartrate 25 mg by mouth twice a day. He was then given a 48-hour Holter monitor. Yesterday, I was called by the company, [employer]. Patient was having multiple pauses that varied between three seconds and up to 10 seconds, but most of them were at night while sleeping and asymptomatic. Patient was called and he was brought to the hospital for further evaluation. He was admitted and the immediate plan is to proceed with implantation of a permanent pacemaker tomorrow, 12/27/2016. When I saw Mr. Modesto Ray in the emergency room (ER), he was supine in bed in no acute distress at rest and his family members were at bedside. He denies any particular chest pain, shortness of breath, or palpitations. Upon talking to the family after we had discussed the findings on the monitor, it seems that he has had two episodes of near syncope about two months ago. At that time, he did not go to the hospital. He denies any nausea, vomiting, diarrhea, melena, or hematemesis. There is no focal manifestation. There is no pedal edema. Last month, he was diagnosed with left pleural effusion, and patient had thoracentesis done by his student finance specialist, Dr. Sebastian Hernandez and 630 mL of yellow fluid was drained. He had an echocardiogram done by [facility] and it revealed moderate mitral regurgitation with a low-normal global left ventricular systolic function. He was found to have an irregular heartbeat and he was referred to the [facility] for cardiac evaluation prior to his surgery. PAST MEDICAL HISTORY: He has a past medical history positive for hypertension, hyperlipidemia, diabetes mellitus, benign prostatic hypertrophy (BPH) with obstruction, and currently he is wearing an indwelling catheter, valvular heart disease with moderate mitral regurgitation and a low-normal global left ventricular systolic function. There is no prior history of obstructive coronary artery disease, myocardial infarction, cerebrovascular accident (CVA), kidney disease, thyroid disorders, or sudden cardiac . He is now being diagnosed with sick sinus syndrome associated with significantly pauses. PAST SURGICAL HISTORY: Positive for kidney stone removal, appendectomy. FAMILY HISTORY: Positive for heart disease, and he has a sister with history of colon cancer. SOCIAL HISTORY: Patient is a and he lives with his niece. He smoked, but he claims that he does not now. He denies any ETOH abuse or illicit drugs. ALLERGIES: No known drug allergies. ADVANCED DIRECTIVES: Patient is a full code. MEDICATIONS PRIOR TO COMING TO THE HOSPITAL: - aspirin 81 mg by mouth daily - atorvastatin 10 mg by mouth daily - lisinopril 20 mg by mouth daily - metformin one tablet by mouth three times a day - tamsulosin 0.4 mg by mouth daily - metoprolol tartrate 25 mg by mouth twice a day, last dose was approximately yesterday in the morning PHYSICAL EXAMINATION: GENERAL: On examination, patient is alert and oriented, in no acute distress at rest. VITAL SIGNS: His vital signs upon arrival to the emergency room (ER), revealed a blood pressure of 138/76 with a pulse of 92 in atrial fibrillation, respirations 16, and his temperature was 97.2 degrees Fahrenheit with an oxygen saturation of 94% on room air. His weight was 58.97 kg, and he is 5.8 feet. HEENT: Atraumatic. NECK: Supple with no jugular venous distention (JVD). LUNGS: Did not reveal any wheezing or crackles. HEART: The heart examination revealed irregularly irregular heart sounds without gallops. The point of maximum impulse (PMI) is fairly displaced inferiorly and laterally. There is no rub. There is a systolic murmur grade 2/6 over the precordium at the lower left sternal border and at the apex with minimal radiation to the axilla. ABDOMEN: Soft and nontender. Bowel sounds are active. EXTREMITIES: Revealed no pedal edema. NEUROLOGICAL: Grossly negative for focal deficit. LABS: BMP revealed a glucose of 145, BUN 25, creatinine 1.02, GFR more than 60, sodium 139, potassium 4.0, chloride 101, CO2 29, and calcium 8.4. Serum BNP was 234. CBC revealed a WBC of 10.8, hemoglobin 14.7, hematocrit 45.2, and platelets 210,000. Serum troponin is 0.03. His pleural fluid cytology was reviewed done in October, and it revealed no malignancy. There was no AFB. Chest x-ray was done and the results are pending. Electrocardiogram done on admission revealed atrial flutter with 3:1 AV block and heart rate is 72 beats per minute. Possible anteroseptal infarct. There is mild IVCD and nonspecific ST abnormalities. Telemetry revealed atrial fibrillation at a rate of about 88 beats per minute. IMPRESSION: 1. Atrial flutter/fibrillation, recently diagnosed in this 86-year-old male with history of hypertension, hyperlipidemia, and valvular heart disease involving mainly in the mitral valve. Left ventricular ejection fraction (LVEF) by echocardiogram was estimated at about 55%. Patient with significantly pauses and according to the family, he recently had two episodes of near syncope. This was discussed with the patient as well as the family and a permanent pacemaker was recommended. He will need it for his prostatectomy and he has agreed to proceed. This was discussed with the hospitalist as well as the ER provider, and Dr. Gutierrez will be informed and hopefully it will be done tomorrow and he will be discharged on 12/28/2016. His beta robby has been on hold, and he will continue his other medications. 2. Hypertension. Seems to be under control. 3. Hyperlipidemia on a statin with atorvastatin. 4. History of diabetes mellitus. This is being addressed. 5. History of BPH with obstruction and currently wearing an indwelling catheter. The immediate plan is to proceed with prostatectomy in the near future. It was a pleasure to participate in the care of Mr. Modesto Ray for his underlying cardiac condition. I will continue to monitor him along with you, and tomorrow Dr. Willoughby will be seeing him.
[2016-12-27] MEDS: MAG SULF 1GM/100ML (MAG RUN) 100 ML IV SCH ×2 (20:43→22:30)
--- NOTE | 2016-12-27 20:43 | ECGEPIP ---
Stationary ECG Study [facility] - ED Test Date: 2016-12-26 Pat Name: RONALD PRADO Department: Room: - Gender: M Cardiograph Operator: rn : 1930 Requested By: KIM Marino Order Number: [id number] Reading MD: Estephania Marcos Measurements Intervals [place] Rate: 72 P: [place]: 0 QRS: -17 QRSD: 130 T: 64 QT: 389 QTc: 428 Interpretive Statements ATRIAL FLUTTER/TACHYCARDIA POSSIBLE ANTERIOR MYOCARDIAL INFARCTION, OF INDETERMINATE AGE NO PRIOR FOR COMPARISON Electronically Signed On 12-27-2016 20:43:28 EST by Estephania Marcos
[2016-12-28] VITALS: BP 119/72
[2016-12-28] MEDS: ceFAZolin SOD 1 GM in D5W MINI-BAG PLUS 50 ML IV SCH ×2 (00:37→07:47)
[2016-12-28 04:39] VITALS: BP 121/68
[2016-12-28 05:38] LABS: BASO # 0.2 K/mm3 (0.0-0.2); EOS # 0.3 K/mm3 (0.0-0.50); EOS % 2.8 % (0.0-3.0); LARGE UNSTAINED CELL # 0.2 K/mm3 (0.0-0.4); LARGE UNSTAINED CELL % 1.6 % (0.0-4.0); LYMPH # 1.9 K/mm3 (1.5-4.5); LYMPH % 15.9 % (24.0-44.0); MEAN CORPUSCULAR HEMOGLOBIN 30.2 pg (27.0-33.0); MEAN CORPUSCULAR HGB CONC 32.2 g/dl (32.0-36.5); MEAN CORPUSCULAR VOLUME 93.8 fl (80.0-96.0); MONO # 0.7 K/mm3 (0.0-0.8); MONO % 6.6 % (0.0-5.0); NEUTROPHILS # 7.7 K/mm3 (1.8-7.7); NEUTROPHILS % 71.2 % (36.0-66.0); PLATELET COUNT, AUTOMATED 202 k/mm3 (150-450); WHITE BLOOD COUNT 10.8 K/mm3 (4.0-10.0)
[2016-12-28 05:44] LABS: ANION GAP 8 MEQ/L (8-16); BLOOD UREA NITROGEN 20 MG/DL (7-18); CARBON DIOXIDE LEVEL 29 MEQ/L (21-32); CHLORIDE LEVEL 101 MEQ/L (98-107); CREATININE FOR GFR 0.97 MG/DL (0.70-1.30); GLOMERULAR FILTRATION RATE > 60.0 (>35); GLUCOSE, FASTING 85 MG/DL (83-110); MAGNESIUM LEVEL 2.2 MG/DL (1.8-2.4); SODIUM LEVEL 138 MEQ/L (136-145)
[2016-12-28] MEDS: SLF 3 ML SYR IV SCH (05:45)
[2016-12-28] MEDS ORDERED: METOPROLOL TART 25 MG TABLET PO SCH (06:00)
[2016-12-28] MEDS: HumaLOG INSULIN (NovoLOG) PER UNIT SC SCH (07:30)
[2016-12-28 08:00] VITALS: BP 122/71
[2016-12-28] MEDS ORDERED: XARE15TA PO (08:39)
[2016-12-28] MEDS ORDERED: METO25TAB PO (08:39)
--- NOTE | 2016-12-28 09:24 | REP ---
CHEST X-RAY PA AND LATERAL: 12/28/2016 COMPARISON: Portable chest 12/27/2016, PA lateral chest 12/27/2016, portable chest 12/26/2016. CLINICAL HISTORY: Post-op pacemaker. FINDINGS: Skin lisa and a pacemaker unit overlie the left upper chest with a single lead terminating in the right ventricle. There is no effusion or pneumothorax in the left chest. Chronic infiltrate and atelectatic changes right upper lobe and medial segment right middle lobe again seen and unchanged. There is no cardiomegaly, vascular redistribution or pulmonary edema. The aorta is mildly calcified at the arch but without aneurysm. Airway intact. Degenerative changes in the shoulders and spine. No free air under the diaphragm. IMPRESSION: 1. New single lead pacer of the left upper chest with lead terminating in the right ventricle. No cardiomegaly or edema. 2. Persistent infiltrates and atelectasis in the right upper right middle lobes with left lung clear. No effusion or pneumothorax. Signed by Chuckie Arenas MD 12/28/2016 05:55 P
[2016-12-28 09:27] VITALS: BP 122/71
[2016-12-28] MEDS: ATORVASTATIN 10 MG TAB PO SCH (09:27)
[2016-12-28] MEDS: TAMSULOSIN 0.4 MG CAP PO SCH (09:27)
[2016-12-28] MEDS: LISINOPRIL 20 MG TAB PO SCH (09:27)
--- NOTE | 2016-12-28 10:28 | IPNPDOC ---
[facility] Cardiology Progress Note Date of Service/Time The patient was seen on 12/28/16 at 10:23. Cardiology Progress Note SUBJECTIVE: Appears comfortable, is laying in bed at a 45 incline, has no active complaints. OBJECTIVE: Well-appearing man, laying in bed, appears stated age. Is conversant and pleasant. No active distress. PHYSICAL EXAMINATION: VITAL SIGNS: Please see below. GENERAL APPEARANCE: Well-appearing, alert and oriented, pleasant. HEENT: Nares patent bilaterally, moist mucous membranes, tongue midline. NCAT, EOMI. LUNGS: CTA bilaterally, no wheezing, rales, rhonchi appreciated. Minimally diminished bilateral air expansion. HEART: Normal S1, S2. No murmurs, gallops, rubs appreciated. ABDOMEN: Soft, nondistended. SKIN: Fragile but intact EXTREMITIES: No cyanosis, edema, clubbing appreciated NEUROLOGICAL: No focal deficit PSYCHIATRIC: Affect is appropriate LABORATORY WORK: Please see below. ASSESSMENT AND PLAN: Mr Ray appears to be doing well this morning, he has no active complaints. He did have a brief 6 beat run of nonsustained V. tach overnight, was given one dose of amiodarone. However currently he is denying any chest pain, palpitations or shortness of breath with pulse in 70's. From a cardiology standpoint he is stable for discharge. Would suggest follow-up within 1 week. Would also suggest low-dose metoprolol therapy. No further recommendations at this time. Vital Signs/I&O VS/I&O Vital Signs Date Time Temp Pulse Resp B/P Pulse Ox O2 Delivery O2 Flow Rate FiO2 12/28/16 09:27 122/71 12/28/16 08:00 Room Air 12/28/16 08:00 96.2 82 18 96 12/27/16 18:45 2.0 12/26/16 22:00 98 I&O- Last 24 Hours up to 6 AM 12/28/16 06:00 Intake Total 1903 ml Output Total 2335 ml Balance -432 ml Laboratory Data 24H LABS Laboratory Tests 2 12/27/16 12:11: Bedside Glucose (Misc Panel) 80L 12/27/16 15:29: Creatine Kinase MB 2.8, Creatine Kinase MB Relative Index 4.91H, Total Creatine Kinase 57, Troponin I 0.04 12/27/16 17:27: Bedside Glucose (Misc Panel) 74L 12/27/16 18:57: Bedside Glucose (Misc Panel) 80L 12/27/16 19:55: Bedside Glucose (Misc Panel) 169H 12/28/16 05:08: Anion Gap 8, White Blood Count 10.8H, Red Blood Count 4.76, Hemoglobin 14.4, Hematocrit 44.7, Mean Corpuscular Volume 93.8, Mean Corpuscular Hemoglobin 30.2 , Mean Corpuscular Hemoglobin Concent 32.2, Red Cell Distribution Width 15.0H, Platelet Count 202, Neutrophils (%) (Auto) 71.2H, Lymphocytes (%) (Auto) 15.9L, Monocytes (%) (Auto) 6.6H, Eosinophils (%) (Auto) 2.8, Basophils (%) (Auto) 2.0H , Neutrophils # (Auto) 7.7, Lymphocytes # (Auto) 1.9, Monocytes # (Auto) 0.7, Eosinophils # (Auto) 0.3, Basophils # (Auto) 0.2, Blood Urea Nitrogen 20H, Creatinine 0.97, Sodium Level 138, Potassium Level 4.0, Chloride Level 101, Carbon Dioxide Level 29, Calcium Level 8.0L, Glomerular Filtration Rate > 60.0, Large Unclassified Cells # 0.2, Large Unclassified Cells % 1.6, Magnesium Level 2.2 CBC/BMP Laboratory Tests 12/28/16 05:08 Calcium Level 8.0 L, Red Blood Count 4.76, Mean Corpuscular Volume 93.8, Mean Corpuscular Hemoglobin 30.2, Mean Corpuscular Hemoglobin Concent 32.2, Red Cell Distribution Width 15.0 H, Neutrophils (%) (Auto) 71.2 H, Lymphocytes (%) (Auto ) 15.9 L, Monocytes (%) (Auto) 6.6 H, Eosinophils (%) (Auto) 2.8, Basophils (%) (Auto) 2.0 H, Neutrophils # (Auto) 7.7, Lymphocytes # (Auto) 1.9, Monocytes # ( Auto) 0.7, Eosinophils # (Auto) 0.3, Basophils # (Auto) 0.2 FSBS Laboratory Tests Test 12/27/16 12:11 12/27/16 17:27 12/27/16 18:57 12/27/16 19:55 Range/Units Bedside Glucose (Misc Panel) 80 74 80 169 83-110 MG/DL Microbiology Microbiology 12/26/16 MRSA Screen, Received Pending GME ATTESTATION GME ATTESTATION My preceptor for this patient encounter was physically present in the building during the encounter and was fully available. As needed, all aspects of the patient interview, examination, medical decision making process, and medical care plan development were reviewed and approved by the preceptor. Preceptor is aware and concurs with the plan as stated in the body of this note and will attest to such by his/her cosignature. IAIN MIRANDA DO Dec 28, 2016 10:28
--- NOTE | 2016-12-28 12:30 | DSES ---
DATE OF ADMISSION: 12/27/2016 DATE OF DISCHARGE: 12/28/2016 PRIMARY CARE PROVIDER: Dr. Macy Scott. CRT: Dr. Krishnamurthy/Dr. Willoughby. CONSULTANTS: Dr. Krishnamurthy / Dr. Willoughby and Dr. Gutierrez PROCEDURES: Pacemaker placement insertion. COMPLICATIONS: None. HISTORY OF PRESENT ILLNESS: Mr. Ray is an 86-year-old gentleman that was called and instructed to come to the hospital for admission due to multiple pauses seen on Holter monitor. He was relatively asymptomatic at the time; however, Dr. Krishnamurthy was consulted and felt that the patient did have sick sinus syndrome. The patient did have a pacemaker inserted on 12/27/[address] Gutierrez and did well through the evening. No issues seen on telemetry. I had an opportunity to speak with Dr. Willoughby who took over for cardiology care today and felt the patient was appropriate for home discharge. Please refer to the history and physical (H and P) for further information regarding intake physical, labs and diagnostics. ADMISSION/DISCHARGE DIAGNOSES: 1. Sick sinus syndrome requiring pacemaker insertion. 2. Hypertension. 3. Benign prostatic hyperplasia (BPH). 4. Hyperlipidemia. 5. Diabetes. 6. Prior history of kidney stones DISCHARGE CONDITION: Good. DISPOSITION: Discharge to home. PHYSICAL EXAMINATION: Today, temperature is 99.2, pulse 71, respiratory rate 18 , blood pressure (BP) 120/72, SPO2 is 94% on room air. General: The patient appears to be in no acute distress. Is alert, oriented. HEENT: Unremarkable. Lungs: Clear. Heart: Regular rate and rhythm. Wound site appears to be healing well. Abdomen soft. Extremities: No edema. No calf tenderness. LABORATORY DATA: White count is 10.8, hemoglobin 14.4 and platelets 202. Sodium 138, potassium 4.0, chloride 101, bicarb 29, anion gap 8, BUN is 20, creatinine 0.97, glucose is 85, troponin remains at 0.04. DISCHARGE MEDICATIONS: - metoprolol tartrate 25 mg twice a day - Xarelto 15 mg daily - Lipitor 10 mg daily - lisinopril 20 mg daily - metformin 500 mg three times a day - Flomax 0.4 mg daily DISCHARGE INSTRUCTIONS: Discharge to home. Activity as tolerated. Consistent carbohydrate diet. Follow up with Dr. Macy Scott in the next 1-2 weeks. Follow up with Dr. Willoughby/Dr. Krishnamurthy in 1 week. Return to the emergency department if symptoms should worsen or progress. He voices understanding. The discharge took approximately 35 minutes. CIRA
--- NOTE | 2016-12-28 13:47 | IPN ---
PACEMAKER SERVICE FOLLOWUP NOTE: 12/28/2016 SUBJECTIVE: Patient feels well and is keen to go home. Has had virtually no incisional discomfort. Remains free of other cardiovascular complaint. Continues to be unaware of heart action. OBJECTIVE: Pleasant, slim, elderly male, bright, alert and orientated. Comfortable lying flat. Heart rate 67 beats per minute and irregular, blood pressure 120/70. Respiratory rate 18. Oxygen saturation 97% on room air. Afebrile. Good air entry over both lung craig with no adventitious sounds. Healing left subclavian pacemaker incision, dressing changed. Slight erythema but no drainage. Heart sounds remain irregular. No pedal edema. BUSH REGENERATOR: This confirms continued underlying atrial fibrillation with a controlled ventricular response on low dose metoprolol beta robby therapy. Appropriate VVI pacer function. CHEST X-RAY: Study for this morning, a PA and lateral is still pending. Postoperative chest x-ray last evening as reported yesterday shows good lead position with no pneumothorax. LABORATORY DATA: Hemoglobin today is stable at 14.4, white blood cell count essentially similar to admission at 10.8, normal platelet count. His electrolytes were normal with magnesium level now up from 1.3 to 2.2 with replacement therapy. BUN 20, creatinine 0.97. Fasting glucose 85. IMPRESSION/PLAN: 1. AV block (unspecified)/single chamber pacemaker in situ: His incision appears to be healing well. Complete pacemaker interrogation today shows excellent intracardiac electrograms and pacing thresholds with anticipated battery longevity of 11 years. I do not believe there will be a problem with him being discharged today. We will give him a followup appointment in my office in 7-10 days for wound check and staple removal. 2. Atrial flutter (chronic): As mentioned, we attempted to rapid overdrive atrial pacing to convert his atrial flutter but were unsuccessful. He ultimately developed atrial fibrillation for a period of time. Has been started on low dose metoprolol for rate control and Xarelto oral anticoagulation will be started later today for prophylaxis against systemic thromboembolic event. I have instructed him to perform only light activities of daily living with his left arm and avoid getting his incision wet until his lisa are removed in my office. He has also been encouraged to contact us promptly for any abnormal erythema, swelling or discharge. CIRA
[2016-12-28] MEDS ORDERED: RIVAROXABAN 15 MG TAB (XARELTO) PO SCH (18:00)
--- NOTE | 2016-12-28 22:55 | EDDOCDS ---
Physician Documentation [facility] Name: Modesto Ray Age: 86 yrs Sex: Male : 1930 Arrival Date: 12/26/2016 Time: 17:13 Bed 1 Private MD: Henri Krishnamurthy MD Disposition: 12/26/16 20:01 Hospitalization ordered by Barbara Loco for Inpatient Admission. Preliminary diagnosis is Sick sinus syndrome. - Bed requested for M ICU. - Status is Inpatient Admission. ttb - Condition is Stable. - Problem is an acute exacerbation. - Symptoms have improved. Historical: - Allergies: no known allergies; - Home Meds: 1. aspirin 81 mg Oral chew once daily 2. tamsulosin 0.4 mg oral cp24 once daily 3. atorvastatin 10 mg oral tab once daily 4. metformin 500 mg Oral tab tid 5. lisinopril 20 mg Oral tab once daily - PMHx: COPD; Diabetes - NIDDM: controlled; Hypertension; Renal Calculi; Hypercholesterolemia; BPH; - PSHx: kidney stone removal; Appendectomy; - Social history: No barriers to communication noted, The patient speaks fluent Canadian, Smoking status: Patient uses tobacco products, current every day smoker. - Family history: Not pertinent. - : The pt / caregiver states he / she is not on anticoagulants. Home medication list is obtained from family members. - Exposure Risk Screening:: None identified. Vital Signs: 12/26 17:14 BP 138 / 76; Pulse 92; Resp 16 S; Temp 97.2(O); Pulse Ox 94% on R/A; Weight 58.97 kg / dd6 130.01 lbs (R); Height 5 ft. 8 in. (172.72 cm) (R); 17:20 BP 128 / 87 (auto/); ttb 17:23 Pulse 95 MON; Pulse Ox 99% ; ttb 17:30 BP 141 / 63 (auto/); ttb 17:30 Pulse 86 MON; Resp 18 S; Pulse Ox 99% on R/A; ttb 17:45 Pulse 84 MON; Pulse Ox 97% ; ttb 17:45 BP 133 / 61 (auto/); ttb 18:00 Pulse 97 MON; Pulse Ox 97% ; ttb 18:00 BP 102 / 58 (auto/); ttb 18:15 BP 123 / 64 (auto/); ttb 18:15 Pulse 73 MON; Pulse Ox 96% ; ttb 18:30 Pulse 80 MON; Pulse Ox 96% ; ttb 18:30 BP 110 / 63 (auto/); ttb 18:45 BP 111 / 65 (auto/); ttb 18:45 Pulse 73 MON; Pulse Ox 96% ; ttb 19:00 Pulse 85 MON; Pulse Ox 96% ; ttb 19:00 BP 111 / 61 (auto/); ttb 19:15 BP 116 / 72 (auto/); ttb 19:15 Pulse 72 MON; Pulse Ox 97% ; ttb 19:29 Pulse 82 MON; Pulse Ox 97% ; ttb 19:30 BP 121 / 61 (auto/); ttb 19:45 BP 130 / 61 (auto/); ttb 19:45 Pulse 85 MON; Resp 18; Pulse Ox 97% on R/A; Pain 0/10; ttb 20:00 Pulse 72 MON; Pulse Ox 96% ; ttb 20:00 BP 126 / 68 (auto/); ttb 20:15 BP 122 / 75 (auto/); ttb 20:15 Pulse 72 MON; Pulse Ox 95% ; ttb 20:30 BP 125 / 73 (auto/); ttb 20:30 Pulse 74 MON; Pulse Ox 96% ; ttb 20:45 Pulse 72 MON; Pulse Ox 96% ; ttb 20:45 BP 122 / 84 (auto/); ttb 21:00 Pulse 87 MON; Pulse Ox 96% ; ttb 21:00 BP 142 / 73 (auto/); ttb 21:14 Pulse 74 MON; Pulse Ox 96% ; ttb 21:15 BP 123 / 73 (auto/); ttb 21:30 BP 122 / 71 (auto/); ttb 21:30 Pulse 72 MON; Resp 16 S; Pulse Ox 96% ; Pain 0/10; ttb 21:54 Temp 98.5(O); ttb 17:14 Body Mass Index 19.77 (58.97 kg, 172.72 cm) dd6 MDM: 17:24 Cash Room Clerk/Pulse Ox/q 30 min VS ordered. fg 17:24 IV Saline Lock ordered. fg 17:24 Rhythm Strip to chart ordered. fg 17:24 Undress patient appropriately for examination ordered. fg 17:25 B-Type Natiuretic Peptide Ordered. EDMS 17:25 Basic Metabolic Profile Ordered. EDMS 17:25 CBC with Diff Ordered. EDMS 17:25 Cardiac Injury Profile Ordered. EDMS 17:25 Troponin Ordered. EDMS 17:25 ECG WITH READING ER PHYS+CARDIAG ordered. EDMS 18:01 Chest, 1 view Ordered. EDMS 19:16 Financial registration complete. ks16 19:17 B-Type Natiuretic Peptide Reviewed. mm11 19:17 Basic Metabolic Profile Reviewed. mm11 19:17 CBC with Diff Reviewed. mm11 19:17 Cardiac Injury Profile Reviewed. mm11 19:17 Troponin Reviewed. mm11 19:18 [facility] Payment Agreement was scanned into MEDHOST and attached to record. ks16 20:53 CARDIAC MARKER PANEL Ordered. EDMS 20:53 CARDIAC MARKER PANEL Ordered. EDMS 20:53 CARDIAC MARKER PANEL Ordered. EDMS 20:53 CBC WITH DIFFERENTIAL Ordered. EDMS 20:53 BASIC METABOLIC PROFILE Ordered. EDMS 20:53 MAGNESIUM LEVEL Ordered. EDMS 20:55 Chest, 2 view PA, Lat Ordered. EDMS 20:55 Admission / Observation Status ordered. EDMS 20:56 LOW SODIUM DIET ordered. EDMS 20:56 NPO FOR TEST/PROCEDURE ordered. EDMS 21:45 MAGNESIUM LEVEL Ordered. EDMS 12/27 11:51 T-Sheet-- Draft Copy was scanned into [employer] and attached to record. gb 11:51 ECG/EKG was scanned into MEDHOST and attached to record. gb 11:52 Trend VS was scanned into MEDHOST and attached to record. gb Signatures: Dispatcher MedHost EDMS Mariam Simpson, Reg Reg gb Jeffrey Hills, DO mm11 Yvette العلي, RN RN Qian Jade, SURGICAL NURSE PRACTITIONER SURGICAL NURSE PRACTITIONER ar3 Ronda Ellis RN RN Mela Xiong MD MD fg Sorenson, Kimberly, Reg Reg ks16 The chart was reviewed and I authenticate all verbal orders and agree with the evaluation and treatment provided.Corrections: (The following items were deleted from the chart) 12/26 18:01 17:25 Chest, 2 view (PA\E\Lat)+XR ordered. EDMS EDMS Attachments: 19:18 [facility] Payment Agreement [email or web address] 12/27 11:51 T-Sheet-- Draft Copy gb 11:51 ECG/EKG gb Chart Complete MTDD
--- NOTE | 2016-12-28 22:55 | EDDOCDS ---
Nurse's Notes [facility] Name: Modesto Ray Age: 86 yrs Sex: Male : 1930 Arrival Date: 12/26/2016 Time: 17:13 Bed 1 Private MD: Henri Krishnamurthy MD Diagnosis: Sick sinus syndrome Presentation: 12/26 17:19 Presenting complaint: daughter states wearing holter monitor over the weekend and jjr called by Dr Krishnamurthy today telling him to report to ED for bradycardia with pauses. Adult Sepsis Screening: The patient does not have new or worsening altered mentation. Patient's respiratory rate is less than 22. Systolic blood pressure is greater than 100. Patient has a qSOFA score of 0- Negative Sepsis Screen. Suicide/Homicide risk assessment- the patient denies having any suicidal and/or homicidal ideations and does not present with any other emotional, behavioral or mental health complaints. Status: Patient is not a library services coordinator or dependent. Transition of care: patient was not received from another setting of care. 17:19 Acuity: BJ Level 3 jjr 17:19 Method Of Arrival: Walkin/Carried/Asstd jjr 17:30 81mg as per norm. ttb Triage Assessment: 17:25 General: Appears in no apparent distress, slender, well nourished, well groomed, jjr Behavior is appropriate for age. Pain: Denies pain. Neurological: No deficits noted. Cardiovascular: Chest pain is denied. 17:25 Cardiovascular: Chest pain is described as Pain is 0 out of 10 on a pain scale. ttb radiates Does not radiate. episodes none began no onset of pain. Historical: - Allergies: no known allergies; - Home Meds: 1. aspirin 81 mg Oral chew once daily 2. tamsulosin 0.4 mg oral cp24 once daily 3. atorvastatin 10 mg oral tab once daily 4. metformin 500 mg Oral tab tid 5. lisinopril 20 mg Oral tab once daily - PMHx: COPD; Diabetes - NIDDM: controlled; Hypertension; Renal Calculi; Hypercholesterolemia; BPH; - PSHx: kidney stone removal; Appendectomy; - Social history: No barriers to communication noted, The patient speaks fluent Nepali, Smoking status: Patient uses tobacco products, current every day smoker. - Family history: Not pertinent. - : The pt / caregiver states he / she is not on anticoagulants. Home medication list is obtained from family members. - Exposure Risk Screening:: None identified. Screenin:30 Screening information is obtained from the patient. Fall risk: No risks identified. ttb Assistance ADL's: requires no assistance with activities of daily living. Abuse/DV Screen: The patient / caregiver reports he/she is: not in a situation that causes fear, pain or injury. Nutritional screening: On diabetic diet. Advance Directives: There is an active Power of Service Car Driver, son and daughter. home support is adequate. Assessment: 17:37 General: Appears in no apparent distress, comfortable, slender, Behavior is appropriate ttb for age, cooperative, pleasant. Pain: Denies pain. Neurological: Level of Consciousness is awake, alert, Moves all extremities. Speech is normal, Facial symmetry appears normal. EENT: CHEESH-NA. Cardiovascular: Heart tones S1 S2 present Rhythm is irregular Chest pain is denied. Respiratory: Airway is patent Respiratory effort is even, unlabored, Respiratory pattern is regular, symmetrical, Breath sounds with rhonchi bilaterally. the patient has mild shortness of breath Denies cough, shortness of breath. GI: Denies nausea, vomiting, pain. Derm: Skin is normal. 18:30 Reassessment: Patient appears in no apparent distress at this time. pt resting on ttb stretcher. NAD noted. Pt remains on monitor with family at bedside. Awaiting MDvisit.. Neurological: Level of Consciousness is awake, alert. Cardiovascular: Rhythm is atrial flutter 3:1 Chest pain is denied. Respiratory: Airway is patent Denies cough, shortness of breath. 19:30 Reassessment: Patient appears in no apparent distress at this time. General: Appears in ttb no apparent distress, comfortable. Pain: Denies pain. Neurological: Level of Consciousness is awake, alert. Cardiovascular: Rhythm is atrial flutter Chest pain is denied. 19:30 Adult Sepsis Screening: The patient does not have new or worsening altered mentation. ttb Patient's respiratory rate is less than 22. Systolic blood pressure is greater than 100. Patient has a qSOFA score of 0- Negative Sepsis Screen. 20:00 General: Cardiology in to see pt at this time. Pt to be admitted to ICU for procedure. ttb 20:30 General: Appears in no apparent distress, comfortable, Hospitalist in to see pt at this ttb time. Family remains at bedside.. 21:00 Reassessment: Patient appears in no apparent distress at this time. peck bag changed ttb per pt request. Pt able to move on stretcher without diff. . 21:15 General: SIGNALMAN contact, unavailable at this time.. ttb 21:40 General: Dr Loco aware of pt having 19 beat run of V tach. Pt awake and alert, sls1 denies sob or chest pain. Strips documented, no new orders given. 21:42 General: Vtach captured at this time by CN. Pt continues to rest on stretcher with no ttb distress noted. Family at bedside. SIGNALMAN contacted again -- will return phonecall.... 21:52 General: report given to GISELE Diehl on ICU. Pt transferred at this time.. ttb Vital Signs: 17:14 BP 138 / 76; Pulse 92; Resp 16 S; Temp 97.2(O); Pulse Ox 94% on R/A; Weight 58.97 kg dd6 (R); Height 5 ft. 8 in. (172.72 cm) (R); 17:20 BP 128 / 87 (auto/); ttb 17:23 Pulse 95 MON; Pulse Ox 99% ; ttb 17:30 BP 141 / 63 (auto/); ttb 17:30 Pulse 86 MON; Resp 18 S; Pulse Ox 99% on R/A; ttb 17:45 Pulse 84 MON; Pulse Ox 97% ; ttb 17:45 BP 133 / 61 (auto/); ttb 18:00 Pulse 97 MON; Pulse Ox 97% ; ttb 18:00 BP 102 / 58 (auto/); ttb 18:15 BP 123 / 64 (auto/); ttb 18:15 Pulse 73 MON; Pulse Ox 96% ; ttb 18:30 Pulse 80 MON; Pulse Ox 96% ; ttb 18:30 BP 110 / 63 (auto/); ttb 18:45 BP 111 / 65 (auto/); ttb 18:45 Pulse 73 MON; Pulse Ox 96% ; ttb 19:00 Pulse 85 MON; Pulse Ox 96% ; ttb 19:00 BP 111 / 61 (auto/); ttb 19:15 BP 116 / 72 (auto/); ttb 19:15 Pulse 72 MON; Pulse Ox 97% ; ttb 19:29 Pulse 82 MON; Pulse Ox 97% ; ttb 19:30 BP 121 / 61 (auto/); ttb 19:45 BP 130 / 61 (auto/); ttb 19:45 Pulse 85 MON; Resp 18; Pulse Ox 97% on R/A; Pain 0/10; ttb 20:00 Pulse 72 MON; Pulse Ox 96% ; ttb 20:00 BP 126 / 68 (auto/); ttb 20:15 BP 122 / 75 (auto/); ttb 20:15 Pulse 72 MON; Pulse Ox 95% ; ttb 20:30 BP 125 / 73 (auto/); ttb 20:30 Pulse 74 MON; Pulse Ox 96% ; ttb 20:45 Pulse 72 MON; Pulse Ox 96% ; ttb 20:45 BP 122 / 84 (auto/); ttb 21:00 Pulse 87 MON; Pulse Ox 96% ; ttb 21:00 BP 142 / 73 (auto/); ttb 21:14 Pulse 74 MON; Pulse Ox 96% ; ttb 21:15 BP 123 / 73 (auto/); ttb 21:30 BP 122 / 71 (auto/); ttb 21:30 Pulse 72 MON; Resp 16 S; Pulse Ox 96% ; Pain 0/10; ttb 21:54 Temp 98.5(O); ttb 17:14 Body Mass Index 19.77 (58.97 kg, 172.72 cm) dd6 Vitals: 17:14 Log In Time: December 26, 2016 at 17:12. dd6 17:16 RN notified that patient meets Red Flag criteria. dd6 ED Course: 17:14 Patient visited by Geovanny Ritter PCA. dd6 17:14 Henri Krishnamurthy is Private Physician. dd6 17:14 Patient moved to Waiting dd6 17:19 Patient moved to 1 dy 17:21 Triage Initiated jjr 17:23 Mela España MD is Attending Physician. fg 17:23 Patient visited by Mela España MD. fg 17:25 Patient visited by Yvette العلي RN. jjr 17:30 The patient / caregiver is instructed regarding the plan of care and ED course. ttb Accompanied by Family Member, Patient has correct armband on for positive identification. Placed in gown. Bed in low position. Call light in reach. Side rails up X2. web page designer on. Pulse ox on. NIBP on. 17:30 Inserted peripheral IV: 20gauge IV in right antecubital area and blood collected. ttb Patient tolerated the procedure well. Labs drawn. (by ED staff). 17:39 Patient visited by José Miguel Tolliver. rn1 17:39 EKG done. (by ED staff). Reviewed by Mela España MD. rn1 17:41 Patient visited by Ronda Ellis RN. ttb 18:17 Patient visited by Peg Catherine RN. kc3 19:03 Patient visited by Jered Schroeder PCA. kb5 19:15 Attending Physician role handed off by Mela España MD mm11 19:15 Jeffrey Hills DO is Attending Physician. mm11 19:18 [facility] Payment Agreement was scanned into [employer] and attached to record. ks16 19:39 Patient visited by Jeffrey Hills DO. mm11 20:00 Patient visited by Ronda Ellis RN. ttb 20:01 Patient visited by Ronda Ellis RN. ttb 20:01 Barbara Loco is Hospitalizing Provider. mm11 20:17 Sherwin Vaz solar energy advisor. nq 20:44 Patient visited by Ronda Ellis RN. ttb 21:46 Patient visited by Ronda Ellis RN. ttb 21:52 No procedures done that require assistance. ttb 12/27 11:51 T-Sheet-- Draft Copy was scanned into [employer] and attached to record. gb 11:51 ECG/EKG was scanned into [employer] and attached to record. gb 11:52 Trend VS was scanned into [employer] and attached to record. gb Attachments: 11:52 Trend VS gb Order Results: Lab Order: B-Type Natiuretic Peptide; SPEC'M 12/26/16 17:27 Test: BRAIN NATRIURETIC PEPTIDE; Value: 234; Range: <100; Abnormal: Above high normal; Units: PG/ML; Status: F Lab Order: Basic Metabolic Profile; SPEC'M 12/26/16 17:27 Test: GLUCOSE, FASTING; Value: 145; Range: 83-110; Abnormal: Above high normal; Units: MG/DL; Status: F Test: BLOOD UREA NITROGEN; Value: 25; Range: 7-18; Abnormal: Above high normal; Units: MG/DL; Status: F Test: CREATININE FOR GFR; Value: 1.02; Range: 0.70-1.30; Units: MG/DL; Status: F Test: GLOMERULAR FILTRATION RATE; Value: > 60.0; Range: >35; Status: F Test: SODIUM LEVEL; Value: 139; Range: 136-145; Units: MEQ/L; Status: F Test: POTASSIUM SERUM; Value: 4.0; Range: 3.5-5.1; Units: MEQ/L; Status: F Test: CHLORIDE LEVEL; Value: 101; Range: 98-107; Units: MEQ/L; Status: F Test: CARBON DIOXIDE LEVEL; Value: 29; Range: 21-32; Units: MEQ/L; Status: F Test: ANION GAP; Value: 9; Range: 8-16; Units: MEQ/L; Status: F Test: CALCIUM LEVEL; Value: 8.4; Range: 8.8-10.2; Abnormal: Below low normal; Units: MG/DL; Status: F Test Note: ; Units are mL/min/1.73 m2 Chronic Kidney Disease Staging per NKF: Stage I & II GFR >=60 Normal to Mildly Decreased Stage III GFR 30-59 Moderately Decreased Stage IV GFR 15-29 Severely Decreased Stage V GFR <15 Very Little GFR Left ESRD GFR <15 on SUPERINTENDENT STORAGE AREA Lab Order: CBC with Diff; SPEC'M 12/26/16 17:27 Test: WHITE BLOOD COUNT; Value: 10.8; Range: 4.0-10.0; Abnormal: Above high normal; Units: K/mm3; Status: F Test: RED BLOOD COUNT; Value: 4.82; Range: 4.30-6.10; Units: M/mm3; Status: F Test: HEMOGLOBIN; Value: 14.7; Range: 14.0-18.0; Units: g/dl; Status: F Test: HEMATOCRIT; Value: 45.2; Range: 42.0-52.0; Units: %; Status: F Test: MEAN CORPUSCULAR VOLUME; Value: 93.8; Range: 80.0-96.0; Units: fl; Status: F Test: MEAN CORPUSCULAR HEMOGLOBIN; Value: 30.6; Range: 27.0-33.0; Units: pg; Status: F Test: MEAN CORPUSCULAR HGB CONC; Value: 32.6; Range: 32.0-36.5; Units: g/dl; Status: F Test: RED CELL DISTRIBUTION WIDTH; Value: 15.0; Range: 11.5-14.5; Abnormal: Above high normal; Units: %; Status: F Test: PLATELET COUNT, AUTOMATED; Value: 210; Range: 150-450; Units: k/mm3; Status: F Test: NEUTROPHILS %; Value: 75.0; Range: 36.0-66.0; Abnormal: Above high normal; Units: %; Status: F Test: LYMPH %; Value: 16.1; Range: 24.0-44.0; Abnormal: Below low normal; Units: %; Status: F Test: MONO %; Value: 3.8; Range: 0.0-5.0; Units: %; Status: F Test: EOS %; Value: 2.9; Range: 0.0-3.0; Units: %; Status: F Test: BASO %; Value: 1.0; Range: 0.0-1.0; Units: %; Status: F Test: LARGE UNSTAINED CELL %; Value: 1.0; Range: 0.0-4.0; Units: %; Status: F Test: NEUTROPHILS #; Value: 8.1; Range: 1.8-7.7; Abnormal: Above high normal; Units: K/mm3; Status: F Test: LYMPH #; Value: 1.9; Range: 1.5-4.5; Units: K/mm3; Status: F Test: MONO #; Value: 0.4; Range: 0.0-0.8; Units: K/mm3; Status: F Test: EOS #; Value: 0.3; Range: 0.0-0.50; Units: K/mm3; Status: F Test: BASO #; Value: 0.1; Range: 0.0-0.2; Units: K/mm3; Status: F Test: LARGE UNSTAINED CELL #; Value: 0.1; Range: 0.0-0.4; Units: K/mm3; Status: F Lab Order: Cardiac Injury Profile; SPEC'M 12/26/16 17:27 Test: CPK CREATINE PHOSPHOKINASE; Value: 101; Range: 39-308; Units: U/L; Status: F Test: CK-MB VALUE MASS; Value: 4.8; Range: 0.0-3.6; Abnormal: Above high normal; Units: NG/ML; Status: F Test: MB/CK RELATIVE INDEX; Value: 4.75; Range: < OR =4; Abnormal: Above high normal; Status: F Test Note: ; DIAGNOSIS CRITERIA MMB ng/ml Relative Index (RI) NON-AMI < or = 5 N/A RENEE ZONE > 5 < or = 4 AMI > 5 > 4 Lab Order: Troponin; SPEC'M 12/26/16 17:27 Test: TROPONIN I; Value: 0.03; Range: < 0.10; Units: NG/ML; Status: F Test Note: ; Troponin I Reference Interval for [facility] LOCI: 99th Percentile= 0.00-0.045 ng/ml Risk Stratification: <= 0.10 ng/ml Decreased Risk for Adverse Clinical Events. 0.10-1.50 ng/ml Increased Risk for Adverse Clinical Events. Evaluation of additional criterion and/or repeat testing in 2-6 hours is suggested to rule out myocardial damage. >= 1.50 ng/ml Indicative of Myocardial Injury. Outcome: 12/26 17:30 No special radiology studies were completed. ttb 20:01 Decision to Hospitalize by Provider. mm11 21:30 Admission hand-off: Report called to SIGNALMAN - unavailable at this time. ttb 21:45 Discharge Assessment: Patient awake and alert. patient administered narcotics - no. ttb 21:52 The following High Risk Discharge criteria are identified: Yes, admit to ICU/OR. ttb Admitted to ICU accompanied by nurse, accompanied by tech, family with patient, via stretcher, on monitor, with chart. Condition: stable. Instructed on admission process. Admission hand-off: Report called to GISELE Diehl on ICU. Property :Personal belongings accompany Pt. wallet given to family. 21:54 Patient left the ED. ttb Signatures: Mariam Simpson, Jett Powell RN RN Jered Reddy, TAX EVALUATOR TAX EVALUATOR kb5 Jeffrey Hills, DO mm11 Yvette العلي, RN RN jjr Geovanny Ritter, TAX EVALUATOR TAX EVALUATOR dd6 Lenka Muller RN RN sls1 Sherwin Vaz Teresa RN RN ttb José Miguel Tolliver rn1 Mela España MD MD fg Crane, Kelsi, RN RN kc3 Kat Benton, Reg Reg ks16 Corrections: (The following items were deleted from the chart) 20:00 19:59 Aspirin was not taken prior to arrival. ttb ttb Chart Complete MTDD
--- NOTE | 2016-12-28 22:55 | EDDOCDS ---
Physician Documentation [facility] Name: Modesto Ray Age: 86 yrs Sex: Male : 1930 Arrival Date: 12/26/2016 Time: 17:13 Bed 1 Private MD: Henri Krishnamurthy MD Disposition: 12/26/16 20:01 Hospitalization ordered by Barbara Loco for Inpatient Admission. Preliminary diagnosis is Sick sinus syndrome. - Bed requested for M ICU. - Status is Inpatient Admission. ttb - Condition is Stable. - Problem is an acute exacerbation. - Symptoms have improved. Historical: - Allergies: no known allergies; - Home Meds: 1. aspirin 81 mg Oral chew once daily 2. tamsulosin 0.4 mg oral cp24 once daily 3. atorvastatin 10 mg oral tab once daily 4. metformin 500 mg Oral tab tid 5. lisinopril 20 mg Oral tab once daily - PMHx: COPD; Diabetes - NIDDM: controlled; Hypertension; Renal Calculi; Hypercholesterolemia; BPH; - PSHx: kidney stone removal; Appendectomy; - Social history: No barriers to communication noted, The patient speaks fluent Malagasy, Smoking status: Patient uses tobacco products, current every day smoker. - Family history: Not pertinent. - : The pt / caregiver states he / she is not on anticoagulants. Home medication list is obtained from family members. - Exposure Risk Screening:: None identified. Vital Signs: 12/26 17:14 BP 138 / 76; Pulse 92; Resp 16 S; Temp 97.2(O); Pulse Ox 94% on R/A; Weight 58.97 kg / dd6 130.01 lbs (R); Height 5 ft. 8 in. (172.72 cm) (R); 17:20 BP 128 / 87 (auto/); ttb 17:23 Pulse 95 MON; Pulse Ox 99% ; ttb 17:30 BP 141 / 63 (auto/); ttb 17:30 Pulse 86 MON; Resp 18 S; Pulse Ox 99% on R/A; ttb 17:45 Pulse 84 MON; Pulse Ox 97% ; ttb 17:45 BP 133 / 61 (auto/); ttb 18:00 Pulse 97 MON; Pulse Ox 97% ; ttb 18:00 BP 102 / 58 (auto/); ttb 18:15 BP 123 / 64 (auto/); ttb 18:15 Pulse 73 MON; Pulse Ox 96% ; ttb 18:30 Pulse 80 MON; Pulse Ox 96% ; ttb 18:30 BP 110 / 63 (auto/); ttb 18:45 BP 111 / 65 (auto/); ttb 18:45 Pulse 73 MON; Pulse Ox 96% ; ttb 19:00 Pulse 85 MON; Pulse Ox 96% ; ttb 19:00 BP 111 / 61 (auto/); ttb 19:15 BP 116 / 72 (auto/); ttb 19:15 Pulse 72 MON; Pulse Ox 97% ; ttb 19:29 Pulse 82 MON; Pulse Ox 97% ; ttb 19:30 BP 121 / 61 (auto/); ttb 19:45 BP 130 / 61 (auto/); ttb 19:45 Pulse 85 MON; Resp 18; Pulse Ox 97% on R/A; Pain 0/10; ttb 20:00 Pulse 72 MON; Pulse Ox 96% ; ttb 20:00 BP 126 / 68 (auto/); ttb 20:15 BP 122 / 75 (auto/); ttb 20:15 Pulse 72 MON; Pulse Ox 95% ; ttb 20:30 BP 125 / 73 (auto/); ttb 20:30 Pulse 74 MON; Pulse Ox 96% ; ttb 20:45 Pulse 72 MON; Pulse Ox 96% ; ttb 20:45 BP 122 / 84 (auto/); ttb 21:00 Pulse 87 MON; Pulse Ox 96% ; ttb 21:00 BP 142 / 73 (auto/); ttb 21:14 Pulse 74 MON; Pulse Ox 96% ; ttb 21:15 BP 123 / 73 (auto/); ttb 21:30 BP 122 / 71 (auto/); ttb 21:30 Pulse 72 MON; Resp 16 S; Pulse Ox 96% ; Pain 0/10; ttb 21:54 Temp 98.5(O); ttb 17:14 Body Mass Index 19.77 (58.97 kg, 172.72 cm) dd6 MDM: 17:24 Spray Blender/Pulse Ox/q 30 min VS ordered. fg 17:24 IV Saline Lock ordered. fg 17:24 Rhythm Strip to chart ordered. fg 17:24 Undress patient appropriately for examination ordered. fg 17:25 B-Type Natiuretic Peptide Ordered. EDMS 17:25 Basic Metabolic Profile Ordered. EDMS 17:25 CBC with Diff Ordered. EDMS 17:25 Cardiac Injury Profile Ordered. EDMS 17:25 Troponin Ordered. EDMS 17:25 ECG WITH READING ER PHYS+CARDIAG ordered. EDMS 18:01 Chest, 1 view Ordered. EDMS 19:16 Financial registration complete. ks16 19:17 B-Type Natiuretic Peptide Reviewed. mm11 19:17 Basic Metabolic Profile Reviewed. mm11 19:17 CBC with Diff Reviewed. mm11 19:17 Cardiac Injury Profile Reviewed. mm11 19:17 Troponin Reviewed. mm11 19:18 [facility] Payment Agreement was scanned into MEDHOST and attached to record. ks16 20:53 CARDIAC MARKER PANEL Ordered. EDMS 20:53 CARDIAC MARKER PANEL Ordered. EDMS 20:53 CARDIAC MARKER PANEL Ordered. EDMS 20:53 CBC WITH DIFFERENTIAL Ordered. EDMS 20:53 BASIC METABOLIC PROFILE Ordered. EDMS 20:53 MAGNESIUM LEVEL Ordered. EDMS 20:55 Chest, 2 view PA, Lat Ordered. EDMS 20:55 Admission / Observation Status ordered. EDMS 20:56 LOW SODIUM DIET ordered. EDMS 20:56 NPO FOR TEST/PROCEDURE ordered. EDMS 21:45 MAGNESIUM LEVEL Ordered. EDMS 12/27 11:51 T-Sheet-- Draft Copy was scanned into [employer] works and attached to record. gb 11:51 ECG/EKG was scanned into MEDHOST and attached to record. gb 11:52 Trend VS was scanned into MEDHOST and attached to record. gb Signatures: Dispatcher [employer] EDMS Mariam Simpson, Reg Reg gb Jeffrey Hills, DO mm11 Yvette العلي, RN RN Qian Jaed, MICROPHONE OPERATOR MICROPHONE OPERATOR ar3 Ronda Ellis RN RN Mela Xiong MD MD fg Sorenson, Kimberly, Reg Reg ks16 The chart was reviewed and I authenticate all verbal orders and agree with the evaluation and treatment provided.Corrections: (The following items were deleted from the chart) 12/26 18:01 17:25 Chest, 2 view (PA\E\Lat)+XR ordered. EDMS EDMS Attachments: 19:18 [facility] Payment Agreement [email or web address] 12/27 11:51 T-Sheet-- Draft Copy gb 11:51 ECG/EKG gb Chart Complete MTDD
--- NOTE | 2016-12-29 23:03 | ECGEPIP ---
Stationary ECG Study [facility] Test Date: 2016-12-28 Pat Name: RONALD PRADO Department: Room: [place] [address] Gender: M Food Safety Auditor: BERNADETTE : [id number] Requested By: Antwan Gutierrez Order Number: [id number] Reading MD: Cristo Willoughby Measurements Intervals [place] Rate: 83 P: RI: 0 QRS: -16 QRSD: 128 T: -46 QT: 397 QTc: 468 Interpretive Statements ATRIAL FLUTTER/TACHYCARDIA SEPTAL MYOCARDIAL INFARCTION, OF INDETERMINATE AGE SIMILAR 12/27/16 Electronically Signed On 12-29-2016 23:02:47 EST by Cristo Willoughby
== END 2016-12-28 10:05 | disposition home or self-care (01) | DRG 243 ==
LOC: M ED 17:13 → M ED INP 20:01 → M ICU 21:59 → OBSVTOIN 12-27 10:16 → M PCU 12-27 18:30
PROVIDERS: ADMIT Hospitalist; ATTEND Hospitalist
PROC: 0JH604Z Insertion of Pacemaker, Single Chamber into Chest Subcutaneous Tissue and Fascia, Open Approach (ICD-10-PCS; 2016-12-27)
PROC: 02H63JZ Insertion of Pacemaker Lead into Right Atrium, Percutaneous Approach (ICD-10-PCS; principal; 2016-12-27 15:00)
DX: I49.5 Sick sinus syndrome (principal); I48.92 Unspecified atrial flutter; I44.2 Atrioventricular block, complete; I48.91 Unspecified atrial fibrillation; I10 Essential (primary) hypertension; N40.0 Benign prostatic hyperplasia without lower urinary tract symptoms; E78.5 Hyperlipidemia, unspecified; E11.9 Type 2 diabetes mellitus without complications; E83.42 Hypomagnesemia; Z79.82 Long term (current) use of aspirin; Z79.899 Other long term (current) drug therapy

== ENCOUNTER → 2017-02-28 | Outpatient (CLI) | payer OTHER ==
[~2017-02-28] MED LIST: ASPI81TA7 PO; ATOR1TAB19 PO; FLOM5CAP PO; LISI-538 PO; METF500T PO; METO25TAB PO; XARE15TA PO
[2017-02-28 07:32] LABS: BASO % 0.3 % (0.0-1.0); EOS # 0.3 K/mm3 (0.0-0.50); EOS % 3.4 % (0.0-3.0); LARGE UNSTAINED CELL # 0.1 K/mm3 (0.0-0.4); LARGE UNSTAINED CELL % 1.2 % (0.0-4.0); LYMPH # 1.7 K/mm3 (1.5-4.5); LYMPH % 18.2 % (24.0-44.0); MEAN CORPUSCULAR HEMOGLOBIN 30.7 pg (27.0-33.0); MEAN CORPUSCULAR HGB CONC 32.2 g/dl (32.0-36.5); MEAN CORPUSCULAR VOLUME 95.6 fl (80.0-96.0); MONO # 0.5 K/mm3 (0.0-0.8); MONO % 5.1 % (0.0-5.0); NEUTROPHILS # 6.4 K/mm3 (1.8-7.7); NEUTROPHILS % 71.7 % (36.0-66.0); PLATELET COUNT, AUTOMATED 161 k/mm3 (150-450); RED CELL DISTRIBUTION WIDTH 14.2 % (11.5-14.5)
[2017-02-28 07:59] LABS: ALBUMIN 3.2 GM/DL (3.2-5.2); ALBUMIN/GLOBULIN RATIO 0.94 (1.00-1.93); ALKALINE PHOSPHATASE 127 U/L (45-117); ALT/SGPT 21 U/L (12-78); ANION GAP 6 MEQ/L (8-16); AST/SGOT 17 U/L (15-37); BILIRUBIN,TOTAL 0.7 MG/DL (0.2-1.0); BLOOD UREA NITROGEN 22 MG/DL (7-18); CALCIUM LEVEL 8.3 MG/DL (8.8-10.2); CARBON DIOXIDE LEVEL 32 MEQ/L (21-32); CHLORIDE LEVEL 102 MEQ/L (98-107); CHOLESTEROL LEVEL 121 MG/DL (<200); GLOMERULAR FILTRATION RATE > 60.0 (>35); GLUCOSE, FASTING 104 MG/DL (83-110); POTASSIUM SERUM 4.4 MEQ/L (3.5-5.1); SODIUM LEVEL 140 MEQ/L (136-145); TOTAL PROTEIN 6.6 GM/DL (6.4-8.2); TRIGLYCERIDES LEVEL 75 MG/DL (<150)
== END ==
LOC: M LAB 07:04
PROVIDERS: ATTEND Family Medicine
DX: E11.9 Type 2 diabetes mellitus without complications (principal)

== ENCOUNTER → 2017-03-21 | Outpatient (CLI) | payer OTHER ==
[2017-03-21 18:39] LABS: INR 1.26
== END ==
LOC: M SMT 13:28
PROVIDERS: ATTEND Urology
DX: Z01.818 Encounter for other preprocedural examination (principal); N40.1 Benign prostatic hyperplasia with lower urinary tract symptoms

== ENCOUNTER 2017-03-28 16:00 | Observation (INO) | payer OTHER ==
[~2017-03-28] VITALS: Ht 167.6 cm; Wt 54.0 kg
[2017-03-28] MEDS: LISINOPRIL 20 MG TAB PO SCH (09:00)
[~2017-03-28 16:00] MED LIST changes: +FUROSEMIDE 100 MG/10 ML VIAL (J1940) As Ordered ONE; +LIDOCAINE 2% INJ 100 MG/5 ML SDV (FOR ANES.) As Ordered ONE; +MIDAZOLAM INJ 2 MG/2 ML VIAL (J2250) As Ordered ONE; +ONDANSETRON 4MG/2ML VIAL (J2405) As Ordered ONE; +PHENYLephrine HCL 500 MCG/5 ML (100MCG/ML) SYRINGE (J2370) As Ordered ONE; +PROPOFOL 200 MG/20 ML VIAL As Ordered ONE; +ePHEDrine SULFATE 25 MG/5 ML(5MG/ML) SYRINGE As Ordered ONE; +fentaNYL 100 MCG/2 ML INJECTION (J3010) As Ordered ONE
[2017-03-28] MEDS ORDERED: LR 1,000 ML IV SCH ×2 (17:30→19:00)
[2017-03-28] MEDS ORDERED: ONDANSETRON 4MG/2ML VIAL (J2405) IV PRN ×3 (17:30→19:45)
[2017-03-28] MEDS ORDERED: fentaNYL 100 MCG/2 ML INJECTION (J3010) IV PRN ×2 (17:30→19:00)
[2017-03-28] MEDS: metFORMIN (GLUCOPHAGE) 500 MG TAB PO SCH (18:00)
[2017-03-28] MEDS ORDERED: ACETAMINOPHEN TAB 650MG DOSE (2X325MG) PO PRN (19:45)
[2017-03-28 19:55] VITALS: BP 172/84
[2017-03-28] MEDS: ATORVASTATIN 10 MG TAB PO SCH (22:03)
[2017-03-28] MEDS: BACTRIM 160MG/800MG DS TAB PO SCH (22:03)
[2017-03-28] MEDS: DOCUSATE SODIUM 100 MG CAP PO SCH (22:03)
[2017-03-28] MEDS: METOPROLOL TART 25 MG TABLET PO SCH (22:03)
[2017-03-29] VITALS (9 sets, daily range): BP systolic 109–144; BP diastolic 62–82
--- NOTE | 2017-03-29 07:59 | IPNPDOC ---
Assessment/Plan Date Seen The patient was seen on 03/29/17. Patient Summary This is an 86 y/o M POD1 s/p cysto w/ button TURP, admitted for low O2 sat postop. He has maintained a good O2 sat on 2L NC o/n. He is a long time smoker but is not on O2 at home. Plan/VTE VTE Prophylaxis Ordered?: Yes VTE Exclusion Mechanical Proph: N/A:VTE Prophy Ordered Plan/Urinary Catheter Urinary Catheter: Other Catheter: (keep catheter in given recent prostate surgery) Plan - wean O2 as tolerated - patient might benefit from a respiratory treatment - encourage PO fluids - continue home meds - catheter to gravity drainage - likely d/c home later today once patient is weaned off O2 Subjective Review oF Systems Chief Complaint The patient is a 86-year-old male admitted with a reason for visit of Benign Prostatic Hyperplasia. Events since Last Encounter No acute events o/n. Denies pain. The patient's catheter has been draining well. No f/c/ns. No shortness of breath or chest pain. Objective Physical Examination General Exam: Alert, Cooperative, No Acute Distress Chest Exam: Normal air movement Skin Exam: Nl turgor and temperature Other physical findings catheter draining dark pink urine Vital Signs/I&O Vital Signs Date Time Temp Pulse Resp B/P (MAP) Pulse Ox O2 Delivery O2 Flow Rate FiO2 03/29/17 04:00 66 98 Nasal Cannula 2.0 03/29/17 04:00 97.6 20 109/64 (79) I&O- Last 24 Hours up to 6 AM 03/29/17 05:59 Intake Total 1090 ml Output Total 750 ml Balance 340 ml Laboratory Data Labs 24H Laboratory Tests 2 03/28/17 13:12: Bedside Glucose (Misc Panel) 101 03/28/17 16:44: Bedside Glucose (Misc Panel) 102 03/28/17 20:25: Bedside Glucose (Misc Panel) 111H FSBS Laboratory Tests Test 03/28/17 13:12 03/28/17 16:44 03/28/17 20:25 Range/Units Bedside Glucose (Misc Panel) 101 102 111 83-110 MG/DL NASIMA HORTON MD March 29, 2017 07:59
[2017-03-29] MEDS: BACTRIM 160MG/800MG DS TAB PO SCH ×2 (08:57→21:06)
[2017-03-29] MEDS: DOCUSATE SODIUM 100 MG CAP PO SCH ×2 (08:57→21:04)
[2017-03-29] MEDS: metFORMIN (GLUCOPHAGE) 500 MG TAB PO SCH ×3 (08:57→18:03)
[2017-03-29] MEDS: LISINOPRIL 20 MG TAB PO SCH (08:57)
[2017-03-29] MEDS: METOPROLOL TART 25 MG TABLET PO SCH ×2 (08:58→21:06)
--- NOTE | 2017-03-29 13:38 | RO ---
DATE OF PROCEDURE: 03/28/2017 PREPROCEDURE DIAGNOSIS: Benign prostatic hyperplasia with urinary retention. POSTPROCEDURE DIAGNOSIS: Benign prostatic hyperplasia with urinary retention. PROCEDURE: Cystoscopy, button transurethral electrovaporization of the prostate. SURGEON: Dr. En Abdi ELECTRONIC SYSTEMS TECHNICIAN: None. ANESTHESIA: General. OPERATIVE INDICATIONS: This is an 86-year-old male with benign prostatic hypertrophy (BPH) and urinary retention refractory to medical therapy. After long consideration, the patient elected to undergo the above listed procedure for treatment of benign prostatic hyperplasia. DESCRIPTION OF PROCEDURE: The patient was brought to the operating room where general anesthesia was induced. Prophylactic antibiotics were infused. He was then placed in dorsal lithotomy position, and prepped and draped in the usual sterile fashion. The button resectoscope was then advanced into the bladder with a visual obturator. Once within the bladder, I made note of bilateral ureteral orifices and they were not close to the bladder neck. I also made note of a location of verumontanum. Of note, the patient had trilobar benign prostatic hyperplasia with fairly prominent median lobe. I began vaporizing tissue first on the median lobe and then circumferentially at the bladder neck. After that was done, I then started vaporizing hyperplastic tissue on both lateral lobes. I kept doing this until a clear channel was established. Throughout the procedure, I made sure not to vaporize too close to the ureteral orifices or distal to the verumontanum. After establishing a clear channel, hemostasis was obtained using the coagulation current. Once I had good hemostasis, the button resectoscope was removed and an #18-Swedish Ledbetter catheter was inserted to the bladder. The balloon was filled with 15 mL of sterile water and at the end of the procedure, the fluid drained light pink. Catheter was then connected to gravity drainage and this marked the conclusion of the procedure. The patient was then taken out of dorsal lithotomy position, awakened from anesthesia and transported to the recovery room in stable condition. ESTIMATED BLOOD LOSS: 50 mL. COMPLICATIONS: None. SPECIMENS: None. PLAN: The patient will followup in the clinic in about a week for catheter removal and a voiding trial. CIRA
[2017-03-29 15:51] LABS: BASO % 0.1 % (0.0-1.0); EOS # 0.1 K/mm3 (0.0-0.50); EOS % 0.9 % (0.0-3.0); LARGE UNSTAINED CELL # 0.1 K/mm3 (0.0-0.4); LARGE UNSTAINED CELL % 0.9 % (0.0-4.0); LYMPH # 1.1 K/mm3 (1.5-4.5); LYMPH % 7.8 % (24.0-44.0); MEAN CORPUSCULAR HEMOGLOBIN 32.9 pg (27.0-33.0); MEAN CORPUSCULAR HGB CONC 33.5 g/dl (32.0-36.5); MEAN CORPUSCULAR VOLUME 98.1 fl (80.0-96.0); MONO # 0.6 K/mm3 (0.0-0.8); MONO % 4.4 % (0.0-5.0); NEUTROPHILS % 85.8 % (36.0-66.0); PLATELET COUNT, AUTOMATED 170 k/mm3 (150-450); RED CELL DISTRIBUTION WIDTH 14.2 % (11.5-14.5)
--- NOTE | 2017-03-29 16:02 | REP ---
PORTABLE CHEST, TWO VIEWS: HISTORY: Congestion. COMPARISON: 12/28/2016 Parenchymal densities are present in the right upper and middle lobes consistent with an infiltrate. This is decreased compared to the previous study. The left lung is clear. The heart is normal in size. The pulmonary vasculature is normal in appearance. A cardiac pacemaker is present. IMPRESSION: Right upper and middle lobe infiltrate decreased compared to the previous study. Signed by Frank Modi MD 03/29/2017 04:26 P
--- NOTE | 2017-03-29 16:04 | CR.PDOC ---
[facility] Consultation Consultation DATE OF CONSULTATION: March 28, 2017 at 16:00 PRIMARY CARE PHYSICIAN: Dr. Scott REFERRING PROVIDER: Dr. Abdi ATTENDING PHYSICIAN: Dr. Abdi REASON FOR CONSULTATION/CHIEF COMPLAINT: Dizziness upon standing/change in mental status HISTORY OF PRESENT ILLNESS: This is an 86-year-old male past medical history of atrial flutter on Xarelto, SSS status post PPM, hypertension, nephrolithiasis, hyperlipidemia presents with worsening BPH, and is now status post TURP cystoscopy, bladder and transurethral electro-vaporization on 03/28/17. Nurse states that today she noticed that he's been having some mild hematuria. Patient been complaining of dizziness and unsteadiness on his feet upon standing. Family has noticed that he has some mild change in his mental status as he tries to keep pulling on his Ledbetter catheter. Patient denies chest pain/shortness of breath/palpitations. No nausea/vomiting/ abdominal pain. ALLERGIES: Please see below. HOME MEDICATIONS: Please see below. PAST MEDICAL HISTORY: As per HPI PAST SURGICAL HISTORY: Appendectomy, PPM, extraction of nephrolithiasis, Thoracentesis FAMILY HISTORY: Brother with heart disease age 50s, father heart disease 70s, sister with cancer. SOCIAL HISTORY: Smoked 1 pack per day 60 years, no alcohol or illicit drug use. Lives with family. REVIEW OF SYSTEMS: HEENT: Denies sore throat/headache CARDIOVASCULAR: Denies chest pain/palpitations RESPIRATORY: No shortness of breath/cough GASTROINTESTINAL: denies nausea/vomiting GENITOURINARY: Denies dysuria/urinary urgency. MUSCULOSKELETAL: Denies myalgias/arthralgias NEUROLOGICAL: Denies any focal weakness Rest of ROS negative. PHYSICAL EXAMINATION: Vitals: (see below) General: No acute distress, laying comfortably in bed. Alert and Oriented to person and place. HEENT: Moist mucous membranes Neck: No JVD or lymphadenopathy Cardiac: Irregularly irregular No murmurs Pulm: Rhonchi at the right. No wheezing/crackles Abd: NT/ND + BS Ext: No edema or cyanosis. Strength 5/5 strength in all ext. Ledbetter in place with mild hematuria in bag. LABORATORY DATA: Please see below. ASSESSMENT/PLAN: 1. Dizziness upon standing- questionable orthostatic hypotension. We will obtain manual orthostatic vitals. Physical therapy consult. 2. Change in mental status- status post TURP. ?delirium. No focal deficits on exam. We will obtain a CMP, mag, ammonia level, TSH. Chest x-ray/urinalysis. H /o Enterobacter [place] UTI susceptible to Bactrim. 3. Mild hematuria- status post TURP. Management per urology 4. Atrial flutter- on Xarelto; will need this restarted once okay with urology.Rate controlled. 5. COPD- compensated; nicotine patch as patient continues to smoke daily. 6. History of SSS status post PPM 7. History of nephrolithiasis 8. History of recurrent pleural effusion status post thoracentesis DVT prophy SCDs until cleared by Urology to restart Xarelto. Vital Signs/I&O Vital Signs Date Time Temp Pulse Resp B/P (MAP) Pulse Ox O2 Delivery O2 Flow Rate FiO2 03/29/17 12:00 97.0 70 20 144/82 (102) 94 Room Air 03/29/17 09:00 1.0 I&O- Last 24 Hours up to 6 AM 03/29/17 05:59 Intake Total 1090 ml Output Total 750 ml Balance 340 ml Laboratory Data Labs 24H Laboratory Tests 2 03/28/17 16:44: Bedside Glucose (Misc Panel) 102 03/28/17 20:25: Bedside Glucose (Misc Panel) 111H 03/29/17 15:38: White Blood Count 14.0H, Red Blood Count 4.89, Hemoglobin 16.1, Hematocrit 47.9 , Mean Corpuscular Volume 98.1H, Mean Corpuscular Hemoglobin 32.9, Mean Corpuscular Hemoglobin Concent 33.5, Red Cell Distribution Width 14.2, Platelet Count 170, Neutrophils (%) (Auto) 85.8H, Lymphocytes (%) (Auto) 7.8L, Monocytes (%) (Auto) 4.4, Eosinophils (%) (Auto) 0.9, Basophils (%) (Auto) 0.1, Neutrophils # (Auto) 12.0H, Lymphocytes # (Auto) 1.1L, Monocytes # (Auto) 0.6, Eosinophils # (Auto) 0.1, Basophils # (Auto) 0.0, Large Unclassified Cells % 0.9 , Large Unclassified Cells # 0.1 CBC/BMP Laboratory Tests 03/29/17 15:38 Red Blood Count 4.89, Mean Corpuscular Volume 98.1 H, Mean Corpuscular Hemoglobin 32.9, Mean Corpuscular Hemoglobin Concent 33.5, Red Cell Distribution Width 14.2, Neutrophils (%) (Auto) 85.8 H, Lymphocytes (%) (Auto) 7.8 L, Monocytes (%) (Auto) 4.4, Eosinophils (%) (Auto) 0.9, Basophils (%) (Auto ) 0.1, Neutrophils # (Auto) 12.0 H, Lymphocytes # (Auto) 1.1 L, Monocytes # ( Auto) 0.6, Eosinophils # (Auto) 0.1, Basophils # (Auto) 0.0 Allergies Coded Allergies: No Known Drug Allergy (Unverified Allergy, Unknown, 03/18/17) Home Medications Scheduled Atorvastatin Calcium (Atorvastatin Calcium) 10 Mg Tab, 10 MG PO DAILY, (Reported ) Lisinopril (Lisinopril) 20 Mg Tab, 20 MG PO DAILY, (Reported) Metformin Hydrochloride (Metformin HCl) 500 Mg Tab, 500 MG PO TID, (Reported) Metoprolol Tartrate (Metoprolol Tartrate) 25 Mg Tab, 25 MG PO Q12H, #60 Tamsulosin Hydrochloride (Flomax) 0.4 Mg Cap, 0.4 MG PO DAILY, (Reported) Trimethoprim/Sulfamethoxazole (Bactrim Ds 800-160 mg) 1 Tab Tab, 1 TAB PO Q12H, (Reported) pt has at home Scheduled PRN Acetaminophen (Tylenol) 325 Mg Tab, 650 MG PO Q4HP PRN for PAIN OR DISCOMFORT, ( Reported) tylenol every 4 - 6 hours as needed for pain or fever, no more than 4 grams in 24 hours HERBIE NAJERA MD March 29, 2017 16:04
[2017-03-29 16:28] LABS: ALKALINE PHOSPHATASE 118 U/L (45-117); ALT/SGPT 20 U/L (12-78); ANION GAP 8 MEQ/L (8-16); AST/SGOT 19 U/L (15-37); BILIRUBIN,TOTAL 0.8 MG/DL (0.2-1.0); BLOOD UREA NITROGEN 27 MG/DL (7-18); CARBON DIOXIDE LEVEL 32 MEQ/L (21-32); CHLORIDE LEVEL 94 MEQ/L (98-107); GLOMERULAR FILTRATION RATE > 60.0 (>35); GLUCOSE, FASTING 145 MG/DL (83-110); MAGNESIUM LEVEL 1.4 MG/DL (1.8-2.4); POTASSIUM SERUM 4.9 MEQ/L (3.5-5.1); SODIUM LEVEL 134 MEQ/L (136-145)
[2017-03-29] MEDS ORDERED: NS 1,000 ML IV SCH (17:15)
[2017-03-29] MEDS: MAG SULF 1GM/100ML (MAG RUN) 1 GM in APPROPRIATE DILUENT 1 EA IV SCH ×2 (18:03→18:57)
[2017-03-29] MEDS: ATORVASTATIN 10 MG TAB PO SCH (21:04)
[2017-03-29] MEDS: TAMSULOSIN 0.4 MG CAP PO SCH (21:07)
[2017-03-29] MEDS: ACETAMINOPHEN TAB 650MG DOSE (2X325MG) PO PRN (23:03)
[2017-03-30] VITALS: BP 120/56
[2017-03-30 04:00] VITALS: BP_SYST 111; BP_SYST 120; BP_DIAS 56; BP_DIAS 57
[2017-03-30 08:00] VITALS: BP 142/64
--- NOTE | 2017-03-30 08:07 | IPNPDOC ---
Assessment/Plan Date Seen The patient was seen on 03/30/17. Patient Summary This is an 86 y/o M, POD2 s/p cysto w/ button TURP, admitted for inability to maintain acceptable O2 sat off O2. This has resolved and he has been saturating fine on room air. His 2 main issues yesterday were dizziness w/ ambulating and periods of confusion. He has not ambulated yet today. He seems oriented this morning, but nursing said that he tried to tug on the catheter a few times o/n as if he was trying to remove it. Plan/VTE VTE Prophylaxis Ordered?: Yes VTE Exclusion Mechanical Proph: N/A:VTE Prophy Ordered Plan/Urinary Catheter Urinary Catheter: Other Catheter: (keep catheter in given recent prostate surgery) Plan - appreciate hospitalist service consulting given the patient's dizziness and confusion - keep catheter to gravity drainage - encourage PO fluids - continue bactrim for preop UTI - strict I/Os - ambulate w/ assistance - if patient ambulates well and remains oriented, then we can discharge him home w/ the catheter in place - if he continues to have problems ambulating, he should have a PT eval Subjective Review oF Systems Chief Complaint The patient is a 86-year-old male admitted with a reason for visit of Benign Prostatic Hyperplasia. Events since Last Encounter Nursing states that the patient was tugging on the catheter a few time o/n as if he was trying to pull it out. Patient denies pain other than occasional bladder spasms. No n/v. No f/c/ns. Objective Physical Examination General Exam: Alert, Cooperative, No Acute Distress Chest Exam: Normal air movement Skin Exam: Nl turgor and temperature Neuro Exam: Normal Speech Psych Exam: Mood NL Other physical findings catheter in place, draining pink urine w/ no clots Vital Signs/I&O Vital Signs Date Time Temp Pulse Resp B/P (MAP) Pulse Ox O2 Delivery O2 Flow Rate FiO2 03/30/17 04:00 66 120/57 (78) 67 111/56 (74) 03/30/17 04:00 97.6 18 96 Room Air 03/29/17 09:00 1.0 I&O- Last 24 Hours up to 6 AM 03/30/17 06:00 Intake Total 3120 ml Output Total 4975 ml Balance -1855 ml Laboratory Data Labs 24H Laboratory Tests 2 03/29/17 15:38: White Blood Count 14.0H, Red Blood Count 4.89, Hemoglobin 16.1, Hematocrit 47.9 , Mean Corpuscular Volume 98.1H, Mean Corpuscular Hemoglobin 32.9, Mean Corpuscular Hemoglobin Concent 33.5, Red Cell Distribution Width 14.2, Platelet Count 170, Neutrophils (%) (Auto) 85.8H, Lymphocytes (%) (Auto) 7.8L, Monocytes (%) (Auto) 4.4, Eosinophils (%) (Auto) 0.9, Basophils (%) (Auto) 0.1, Neutrophils # (Auto) 12.0H, Lymphocytes # (Auto) 1.1L, Monocytes # (Auto) 0.6, Eosinophils # (Auto) 0.1, Basophils # (Auto) 0.0, Large Unclassified Cells % 0.9 , Large Unclassified Cells # 0.1, Anion Gap 8, Glomerular Filtration Rate > 60.0 , Blood Urea Nitrogen 27H, Creatinine 1.20, Sodium Level 134L, Potassium Level 4.9, Chloride Level 94L, Carbon Dioxide Level 32, Calcium Level 8.0L, Aspartate Amino Transf (AST/SGOT) 19, Alanine Aminotransferase (ALT/SGPT) 20, Alkaline Phosphatase 118H, Total Bilirubin 0.8, Total Protein 6.0L, Albumin 3.0L, Magnesium Level 1.4L, Ammonia 21, Albumin/Globulin Ratio 1.00, Thyroid Stimulating Hormone (TSH) 0.694 03/29/17 18:11: Urine Appearance CLOUDYH, Urine Color REDH, Urine pH 6.0, Urine Specific [place] 1.015, Urine Protein 2+H, Urine Glucose (UA) NEGATIVE, Urine Ketones NEGATIVE, Urine Urobilinogen 4.0H, Urine Bilirubin NEGATIVE, Urine Leukocyte Esterase 1+H, Urine Blood 3+H, Urine Nitrite NEGATIVE, Urine WBC (Auto) 97H, Urine RBC (Auto) TNTCH, Urine Hyaline Casts (Auto) 0, Urine Bacteria (Auto) NEGATIVE, Urine Squamous Epithelial Cells 0, Urine Sperm (Auto) SMALLH CBC/BMP Laboratory Tests 03/29/17 15:38 Red Blood Count 4.89, Mean Corpuscular Volume 98.1 H, Mean Corpuscular Hemoglobin 32.9, Mean Corpuscular Hemoglobin Concent 33.5, Red Cell Distribution Width 14.2, Neutrophils (%) (Auto) 85.8 H, Lymphocytes (%) (Auto) 7.8 L, Monocytes (%) (Auto) 4.4, Eosinophils (%) (Auto) 0.9, Basophils (%) (Auto ) 0.1, Neutrophils # (Auto) 12.0 H, Lymphocytes # (Auto) 1.1 L, Monocytes # ( Auto) 0.6, Eosinophils # (Auto) 0.1, Basophils # (Auto) 0.0, Calcium Level 8.0 L , Aspartate Amino Transf (AST/SGOT) 19, Alanine Aminotransferase (ALT/SGPT) 20, Alkaline Phosphatase 118 H, Total Bilirubin 0.8, Total Protein 6.0 L, Albumin 3.0 L Microbiology Microbiology 03/29/17 Urine Culture, Received Pending NASIMA HORTON MD March 30, 2017 08:07
[2017-03-30] MEDS ORDERED: BACT800T5 PO (08:44)
[2017-03-30] MEDS ORDERED: TYLE325T5 PO (08:44)
[2017-03-30] MEDS: BACTRIM 160MG/800MG DS TAB PO SCH ×2 (09:16→20:37)
[2017-03-30] MEDS: LISINOPRIL 20 MG TAB PO SCH (09:19)
[2017-03-30] MEDS: metFORMIN (GLUCOPHAGE) 500 MG TAB PO SCH ×3 (09:20→18:15)
[2017-03-30] MEDS: METOPROLOL TART 25 MG TABLET PO SCH ×2 (09:20→20:37)
[2017-03-30] MEDS: DOCUSATE SODIUM 100 MG CAP PO SCH ×2 (09:21→20:37)
[2017-03-30 12:25] VITALS: BP 127/65
--- NOTE | 2017-03-30 15:46 | IPN ---
DATE: 03/30/2017 [place] is seen in [facility]. He is status post transurethral resection of the prostate (TURP). He seems to be having a bit of confusion today. From what I understand from the staff, it is better than yesterday. He has a sitter with him. He denies chest pain, shortness of breath, or dizziness. PHYSICAL EXAMINATION: VITAL SIGNS: Stable. He had no orthostatic drop of his blood pressure this morning, 120/57 supine, 111/56 sitting. GENERAL APPEARANCE: Elderly, spry, slightly agitated. LUNGS: Clear. HEART: Regular rate and rhythm. ABDOMEN: Soft, nontender. EXTREMITIES: No peripheral edema. LABORATORY DATA: No laboratories today. IMPRESSION: 1. Orthostatic hypotension. This has resolved. I stopped his orthostatic vital signs. 2. Altered mental status, probably postoperative and perhaps some underlying dementia. Sitter is still appropriate. I will order some laboratory work for tomorrow. Urine culture is still pending.
[2017-03-30 18:00] VITALS: BP 138/64
[2017-03-30] MEDS: TAMSULOSIN 0.4 MG CAP PO SCH (20:37)
[2017-03-30] MEDS: ATORVASTATIN 10 MG TAB PO SCH (20:37)
[2017-03-30 22:00] VITALS: BP 142/67
[2017-03-30] MEDS ORDERED: traZODone 25MG PER 1/2 TABLET PO ONE (23:59)
[2017-03-31] VITALS (8 sets, daily range): BP systolic 98–136; BP diastolic 53–72
[2017-03-31 07:01] LABS: MEAN CORPUSCULAR HEMOGLOBIN 31.8 pg (27.0-33.0); MEAN CORPUSCULAR HGB CONC 33.5 g/dl (32.0-36.5); MEAN CORPUSCULAR VOLUME 94.9 fl (80.0-96.0); RED CELL DISTRIBUTION WIDTH 14.2 % (11.5-14.5); WHITE BLOOD COUNT 9.9 K/mm3 (4.0-10.0)
[2017-03-31 07:23] LABS: ANION GAP 7 MEQ/L (8-16); BLOOD UREA NITROGEN 23 MG/DL (7-18); CALCIUM LEVEL 8.1 MG/DL (8.8-10.2); CARBON DIOXIDE LEVEL 26 MEQ/L (21-32); CHLORIDE LEVEL 100 MEQ/L (98-107); CREATININE FOR GFR 1.06 MG/DL (0.70-1.30); GLOMERULAR FILTRATION RATE > 60.0 (>35); GLUCOSE, FASTING 95 MG/DL (83-110); POTASSIUM SERUM 4.8 MEQ/L (3.5-5.1); SODIUM LEVEL 133 MEQ/L (136-145)
[2017-03-31] MEDS: BACTRIM 160MG/800MG DS TAB PO SCH ×2 (08:22→20:37)
[2017-03-31] MEDS: METOPROLOL TART 25 MG TABLET PO SCH ×2 (08:22→20:37)
[2017-03-31] MEDS: LISINOPRIL 20 MG TAB PO SCH (08:22)
[2017-03-31] MEDS: DOCUSATE SODIUM 100 MG CAP PO SCH ×2 (08:22→20:37)
[2017-03-31] MEDS: metFORMIN (GLUCOPHAGE) 500 MG TAB PO SCH ×3 (08:22→19:11)
--- NOTE | 2017-03-31 08:40 | IPNPDOC ---
Assessment/Plan Date Seen The patient was seen on 03/31/17. Patient Summary This is an 86 y/o M, POD3 s/p cysto w/ button TURP, admitted for inability to maintain acceptable O2 sat off O2. This has resolved. He has been kept the last 2 days b/c of instability w/ ambulation and mild confusion. He was evaluated by PT yesterday and he was not cleared for discharge. The patient notes that other than difficulty sleeping, he feels well. His urine is now clear. He denies bladder spasms. Plan/VTE VTE Prophylaxis Ordered?: Yes VTE Exclusion Mechanical Proph: N/A:VTE Prophy Ordered Plan/Urinary Catheter Urinary Catheter: Other Catheter: (keep catheter in given recent prostate surgery) Plan - maintain catheter to gravity drainage - strict I/Os - appreciate assistance from Dr. Mora - PT - SCDs - incentive spirometry - likely discharge home today w/ catheter pending PT repeat eval Subjective Review oF Systems Chief Complaint The patient is a 86-year-old male admitted with a reason for visit of Benign Prostatic Hyperplasia. Events since Last Encounter The patient was unstable w/ PT yesterday and therefore he was discharged home. He also had mild confusion o/n and did not sleep well again. He denies pain. His catheter has been draining well. Objective Physical Examination General Exam: Alert, Cooperative, No Acute Distress Chest Exam: Normal air movement Skin Exam: Nl turgor and temperature Neuro Exam: Normal Speech Psych Exam: Mood NL Other physical findings catheter in place, draining clear urine Vital Signs/I&O Vital Signs Date Time Temp Pulse Resp B/P (MAP) Pulse Ox O2 Delivery O2 Flow Rate FiO2 03/31/17 08:22 90 133/72 03/31/17 06:00 98.9 18 95 Room Air 03/29/17 09:00 1.0 I&O- Last 24 Hours up to 6 AM 03/31/17 06:00 Intake Total 880 ml Output Total 1825 ml Balance -945 ml Laboratory Data Labs 24H Laboratory Tests 2 03/30/17 11:58: Bedside Glucose (Misc Panel) 182H 03/30/17 16:58: Bedside Glucose (Misc Panel) 117H 03/30/17 20:17: Bedside Glucose (Misc Panel) 147H 03/31/17 06:45: Anion Gap 7L, Glomerular Filtration Rate > 60.0, Blood Urea Nitrogen 23H, Creatinine 1.06, Sodium Level 133L, Potassium Level 4.8, Chloride Level 100, Carbon Dioxide Level 26, Calcium Level 8.1L CBC/BMP Laboratory Tests 03/31/17 06:45 Red Blood Count 4.66, Mean Corpuscular Volume 94.9, Mean Corpuscular Hemoglobin 31.8, Mean Corpuscular Hemoglobin Concent 33.5, Red Cell Distribution Width 14.2 , Calcium Level 8.1 L FSBS Laboratory Tests Test 03/30/17 11:58 03/30/17 16:58 03/30/17 20:17 Range/Units Bedside Glucose (Misc Panel) 182 117 147 83-110 MG/DL Microbiology Microbiology 03/29/17 Urine Culture, Received Pending NASIMA HORTON MD March 31, 2017 08:40
--- NOTE | 2017-03-31 08:49 | IPN ---
DATE OF SERVICE: 03/31/2017 [place] is seen in [address] [place] I spoke with Dr. Abdi. He plans to discharge [place] if he passes his physical therapy evaluation. He has been having some delirium at night, probably related to unfamiliar surroundings and lack of sleep with some underlying dementia. He is settled with the family present. PHYSICAL EXAMINATION: VITAL SIGNS: Stable. 133/72. Afebrile at 98.9. 95% oxygen (O2) saturation. GENERAL APPEARANCE: [place], alert, conversant. LUNGS: Clear. HEART: Regular rate and rhythm. ABDOMEN: Soft, nontender. No peripheral edema. LABORATORIES: CBC and BMP unremarkable. PLAN: He should be able to go home if he passes physical therapy. I think if he got home back to familiar surroundings, his confusion would clear. Atrial flutter. The plan is to restart Xarelto when cleared by urology. He has been having some hematuria, status post transurethral resection of prostate (TURP). It would be reasonable to restart this when he sees his primary care provider, Dr. Scott, which I recommended that he do next week. Chronic obstructive pulmonary disease (COPD). I urged smoking cessation. He has a nicotine patch on. He seems compensated. Orthostatic hypotension. This has resolved. Enterobacter urinary tract infection (UTI). He is on Bactrim. He is tolerating this well. Renal function is stable.
[2017-03-31] MEDS: ACETAMINOPHEN TAB 650MG DOSE (2X325MG) PO PRN (12:29)
[2017-03-31] MEDS: TAMSULOSIN 0.4 MG CAP PO SCH (20:37)
[2017-03-31] MEDS: ATORVASTATIN 10 MG TAB PO SCH (20:37)
[2017-04-01 02:00] VITALS: BP 125/57
[2017-04-01 04:45] VITALS: BP 130/71
[2017-04-01 05:29] LABS: MEAN CORPUSCULAR HEMOGLOBIN 31.9 pg (27.0-33.0); MEAN CORPUSCULAR HGB CONC 33.6 g/dl (32.0-36.5); MEAN CORPUSCULAR VOLUME 95.1 fl (80.0-96.0); RED CELL DISTRIBUTION WIDTH 14.4 % (11.5-14.5); WHITE BLOOD COUNT 8.8 K/mm3 (4.0-10.0)
[2017-04-01 05:51] LABS: ANION GAP 9 MEQ/L (8-16); BLOOD UREA NITROGEN 35 MG/DL (7-18); CARBON DIOXIDE LEVEL 26 MEQ/L (21-32); CHLORIDE LEVEL 101 MEQ/L (98-107); CREATININE FOR GFR 1.19 MG/DL (0.70-1.30); GLOMERULAR FILTRATION RATE > 60.0 (>35); GLUCOSE, FASTING 85 MG/DL (83-110); POTASSIUM SERUM 4.5 MEQ/L (3.5-5.1); SODIUM LEVEL 136 MEQ/L (136-145)
[2017-04-01] MEDS: METOPROLOL TART 25 MG TABLET PO SCH (09:04)
[2017-04-01] MEDS: LISINOPRIL 20 MG TAB PO SCH (09:04)
[2017-04-01] MEDS: BACTRIM 160MG/800MG DS TAB PO SCH (09:04)
[2017-04-01] MEDS: metFORMIN (GLUCOPHAGE) 500 MG TAB PO SCH (09:04)
[2017-04-01] MEDS: DOCUSATE SODIUM 100 MG CAP PO SCH (09:04)
[2017-04-01 10:00] VITALS: BP 122/67
--- NOTE | 2017-04-01 10:37 | DSES ---
DATE OF ADMISSION: 03/29/2017 DATE OF DISCHARGE: 04/01/2017 PRIMARY CARE PROVIDER: Dr. Macy Scott SURGEON: Dr. En Abdi PRINCIPAL PROCEDURE: Cystoscopy, button transurethral electrovaporization of the prostate for benign prostatic hypertrophy (BPH) with urinary retention. SECONDARY DIAGNOSES: Postop delirium/metabolic encephalopathy probably related to enterobacter urinary tract infection. Orthostatic hypotension. Atrial flutter - Xarelto on hold until followup appointment with his primary provider. CONSULTATIONS: Hospitalist group. HISTORY: Mod[place] Ray was admitted for surgical treatment of BPH. Hospitalists were consulted for medical care. Refer to surgical services dictations for his operative care. The hospitalists were consulted for orthostatic hypotension, this resolved. He had altered mental status. He grew out enterobacter on a urine culture, was started on Bactrim. Mental status improved, though he still had some disorientation probably related to postop state and being in unfamiliar surrounding. He has a history of atrial flutter. His Xarelto was held after surgery and is still after discharge. Plans are to restart this as an outpatient. He had nicotine patch to try to abstain from smoking as part of his treatment for chronic obstructive pulmonary disease (COPD). On the day of discharge, he is resting comfortably. He has passed his home safety evaluation so he is ready to go home. His mental status seems improved. Blood pressure is 130/70, pulse 60, respiratory rate 17, 91% oxygen saturation on room air, 97.1 degrees. Alert and spry, in no distress. No jugular venous distention (JVD). Lungs decreased breath sounds, but clear. Heart irregular rate and rhythm, rate around 70. Abdomen soft, nontender. No peripheral edema. LABORATORIES: White count today is 8.8, hemoglobin 14.3, platelets 192, sodium 136, potassium 4.5, BUN 35, creatinine 1.1, glucose 85. It looks like we have been checking his blood sugars since he has been here and they are averaging in the mid 100s. MEDICATIONS ON DISCHARGE: - Tylenol as needed - atorvastatin 10 mg daily - lisinopril 20 mg daily - metformin 500 mg with meals three times a day - metoprolol 25 mg every 12 hours - Flomax 0.4 mg daily - Bactrim DS tablets every 12 hours, which he already has at home and he should continue this for another five days. - His Xarelto is on hold and should be restarted on at the discretion of Dr. Scott. He had some hematuria postoperatively, which has cleared and if he remains without significant hematuria then it could be restarted at his next appointment. Followup will be with Dr. Abdi through his office. The patient is on a consistent carbohydrate diet with activity as tolerated. He has an indwelling Ledbetter catheter in place and has been instructed in the care of this.
== END 2017-04-01 12:30 | disposition home or self-care (01) ==
LOC: M SDC 16:00 → M PCU 16:01 → M SDC 19:46 → M PCU 19:46 → M SDC 03-29 15:14 → M PCU 03-29 15:14 → UNDOADMOB 03-29 15:15 → M PCU 03-29 15:15 → M MSPAV 03-30 12:31 → UNDODISOB 04-01 12:30
PROVIDERS: ADMIT Urology; ATTEND Urology
DX: N40.1 Benign prostatic hyperplasia with lower urinary tract symptoms (principal); F05 Delirium due to known physiological condition; G93.41 Metabolic encephalopathy; I95.1 Orthostatic hypotension; I48.92 Unspecified atrial flutter; J44.9 Chronic obstructive pulmonary disease, unspecified; Z79.02 Long term (current) use of antithrombotics/antiplatelets; Z79.899 Other long term (current) drug therapy; F17.210 Nicotine dependence, cigarettes, uncomplicated; I10 Essential (primary) hypertension; E11.9 Type 2 diabetes mellitus without complications; I49.5 Sick sinus syndrome; E78.2 Mixed hyperlipidemia
CPT/HCPCS: 36415; 52601; 71010; 80048; 80053; 81001; 82140; 83735; 84443; 85025; 85027; 87086; 97116; 97161; 97530; G0378; J0690; J2250; J2370; J2405; J3010; J3475

== ENCOUNTER → 2017-04-11 | Outpatient (REF) | payer OTHER ==
[~2017-04-11] MED LIST changes: +BACT800T5 PO; -FUROSEMIDE 100 MG/10 ML VIAL (J1940) As Ordered ONE; -LIDOCAINE 2% INJ 100 MG/5 ML SDV (FOR ANES.) As Ordered ONE; -MIDAZOLAM INJ 2 MG/2 ML VIAL (J2250) As Ordered ONE; -ONDANSETRON 4MG/2ML VIAL (J2405) As Ordered ONE; -PHENYLephrine HCL 500 MCG/5 ML (100MCG/ML) SYRINGE (J2370) As Ordered ONE; -PROPOFOL 200 MG/20 ML VIAL As Ordered ONE; +TYLE325T5 PO; -ePHEDrine SULFATE 25 MG/5 ML(5MG/ML) SYRINGE As Ordered ONE; -fentaNYL 100 MCG/2 ML INJECTION (J3010) As Ordered ONE
== END ==
LOC: M LAB REF 12:50
PROVIDERS: ATTEND Family Medicine
DX: R30.9 Painful micturition, unspecified (principal)

== ENCOUNTER → 2017-09-08 | Outpatient (CLI) | payer OTHER ==
[~2017-09-08] MED LIST changes: +ASPI1TAB15 PO; -ASPI81TA7 PO; -METF500T PO; +METF500T13 PO; +METO25TA4 PO; -METO25TAB PO
[2017-09-08 07:02] LABS: BASO % 0.4 % (0.0-1.0); EOS # 0.3 10^3/uL (0.0-0.50); EOS % 3.3 % (0.0-3.0); IMMATURE GRANULOCYTE % 0.3 % (0-0); LYMPH # 2.1 10^3/uL (1.5-4.5); LYMPH % 21.7 % (24.0-44.0); MEAN CORPUSCULAR HEMOGLOBIN 31.7 pg (27.0-33.0); MEAN CORPUSCULAR HGB CONC 32.6 g/dl (32.0-36.5); MEAN CORPUSCULAR VOLUME 97.2 fl (80.0-96.0); MONO # 0.7 10^3/uL (0.0-0.8); MONO % 7.5 % (0.0-5.0); NEUTROPHILS # 6.5 10^3/uL (1.8-7.7); NEUTROPHILS % 66.8 % (36.0-66.0); PLATELET COUNT, AUTOMATED 189 10^3/uL (150-450); RED CELL DISTRIBUTION WIDTH 13.4 % (11.5-14.5); WHITE BLOOD COUNT 9.7 10^3/uL (4.0-10.0)
[2017-09-08 07:27] LABS: ALBUMIN 3.3 GM/DL (3.2-5.2); ALBUMIN/GLOBULIN RATIO 0.97 (1.00-1.93); ALKALINE PHOSPHATASE 117 U/L (45-117); ALT/SGPT 21 U/L (12-78); ANION GAP 6 MEQ/L (8-16); AST/SGOT 18 U/L (15-37); BLOOD UREA NITROGEN 22 MG/DL (7-18); CALCIUM LEVEL 8.5 MG/DL (8.8-10.2); CARBON DIOXIDE LEVEL 30 MEQ/L (21-32); CHLORIDE LEVEL 103 MEQ/L (98-107); CHOLESTEROL LEVEL 127 MG/DL (<200); CREATININE FOR GFR 1.08 MG/DL (0.70-1.30); GLOMERULAR FILTRATION RATE > 60.0 (>35); GLUCOSE, FASTING 110 MG/DL (83-110); SODIUM LEVEL 139 MEQ/L (136-145); TOTAL PROTEIN 6.7 GM/DL (6.4-8.2); TRIGLYCERIDES LEVEL 135 MG/DL (<150)
== END ==
LOC: M LAB 06:29
PROVIDERS: ATTEND Family Medicine
DX: E11.9 Type 2 diabetes mellitus without complications (principal)

== ENCOUNTER → 2018-03-16 | Outpatient (CLI) | payer OTHER ==
[2018-03-16 07:47] LABS: BASO # 0.1 10^3/uL (0.0-0.2); BASO % 0.6 % (0.0-1.0); EOS # 0.4 10^3/uL (0.0-0.50); EOS % 4.8 % (0.0-3.0); HEMATOCRIT 47.9 % (42.0-52.0); HEMOGLOBIN 15.7 g/dl (13.5-17.5); IMMATURE GRANULOCYTE % 0.3 % (0-3.0); LYMPH # 1.8 10^3/uL (1.5-4.5); MEAN CORPUSCULAR HEMOGLOBIN 30.8 pg (27.0-33.0); MEAN CORPUSCULAR HGB CONC 32.8 g/dl (32.0-36.5); MEAN CORPUSCULAR VOLUME 94.1 fl (80.0-96.0); MONO # 0.6 10^3/uL (0.0-0.8); MONO % 7.2 % (0.0-5.0); NEUTROPHILS % 67.1 % (36.0-66.0); PLATELET COUNT, AUTOMATED 199 10^3/uL (150-450); RED BLOOD COUNT 5.09 10^6/uL (4.30-6.10); RED CELL DISTRIBUTION WIDTH 14.5 % (11.5-14.5); WHITE BLOOD COUNT 8.9 10^3/uL (4.0-10.0)
[2018-03-16 08:19] LABS: ALBUMIN 3.7 GM/DL (3.2-5.2); ALBUMIN/GLOBULIN RATIO 1.03 (1.00-1.93); ALKALINE PHOSPHATASE 191 U/L (45-117); ALT/SGPT 22 U/L (12-78); ANION GAP 7 MEQ/L (8-16); AST/SGOT 26 U/L (7-37); BILIRUBIN,TOTAL 0.8 MG/DL (0.2-1.0); BLOOD UREA NITROGEN 21 MG/DL (7-18); CALCIUM LEVEL 8.9 MG/DL (8.8-10.2); CARBON DIOXIDE LEVEL 28 MEQ/L (21-32); CHLORIDE LEVEL 104 MEQ/L (98-107); CHOLESTEROL LEVEL 122 MG/DL (<200); CHOLESTEROL RISK RATIO 2.652 (<5); CREATININE FOR GFR 1.14 MG/DL (0.70-1.30); GLOMERULAR FILTRATION RATE > 60.0 (>35); GLUCOSE, FASTING 151 MG/DL (70-100); HDL CHOLESTEROL 46 MG/DL (>40); LDL CHOLESTEROL 56.4 MG/DL (<100); NON-HDL-C 76 MG/DL; POTASSIUM SERUM 4.4 MEQ/L (3.5-5.1); SODIUM LEVEL 139 MEQ/L (136-145); TOTAL PROTEIN 7.3 GM/DL (6.4-8.2); TRIGLYCERIDES LEVEL 98 MG/DL (<150)
[2018-03-16 09:38] LABS: ESTIMATED AVERAGE GLUCOSE 140 MG/DL (60-110); HEMOGLOBIN A1c 6.5 %
== END ==
LOC: M LAB 07:12
DX: E11.9 Type 2 diabetes mellitus without complications (principal)
CPT/HCPCS: 80053

== ENCOUNTER → 2018-09-12 | Outpatient (CLI) | payer OTHER ==
[2018-09-12 09:20] LABS: BASO % 0.2 % (0.0-1.0); EOS # 0.1 10^3/uL (0.0-0.50); EOS % 1.1 % (0.0-3.0); HEMATOCRIT 49.4 % (42.0-52.0); HEMOGLOBIN 16.4 g/dl (13.5-17.5); IMMATURE GRANULOCYTE % 0.5 % (0-3.0); LYMPH # 1.8 10^3/uL (1.5-4.5); LYMPH % 14.7 % (24.0-44.0); MEAN CORPUSCULAR HEMOGLOBIN 32.4 pg (27.0-33.0); MEAN CORPUSCULAR HGB CONC 33.2 g/dl (32.0-36.5); MEAN CORPUSCULAR VOLUME 97.6 fl (80.0-96.0); MONO # 0.7 10^3/uL (0.0-0.8); MONO % 5.6 % (0.0-5.0); NEUTROPHILS # 9.4 10^3/uL (1.8-7.7); NEUTROPHILS % 77.9 % (36.0-66.0); PLATELET COUNT, AUTOMATED 182 10^3/uL (150-450); RED BLOOD COUNT 5.06 10^6/uL (4.30-6.10); RED CELL DISTRIBUTION WIDTH 13.8 % (11.5-14.5); WHITE BLOOD COUNT 12.1 10^3/uL (4.0-10.0)
[2018-09-12 09:31] LABS: ESTIMATED AVERAGE GLUCOSE 146 MG/DL (60-110); HEMOGLOBIN A1c 6.7 %
[2018-09-12 09:51] LABS: ALBUMIN 3.4 GM/DL (3.2-5.2); ALKALINE PHOSPHATASE 113 U/L (45-117); ALT/SGPT 23 U/L (12-78); ANION GAP 6 MEQ/L (8-16); AST/SGOT 24 U/L (7-37); BLOOD UREA NITROGEN 24 MG/DL (7-18); CALCIUM LEVEL 8.7 MG/DL (8.8-10.2); CARBON DIOXIDE LEVEL 32 MEQ/L (21-32); CHLORIDE LEVEL 102 MEQ/L (98-107); CHOLESTEROL LEVEL 135 MG/DL (<200); CHOLESTEROL RISK RATIO 2.647 (<5); GLOMERULAR FILTRATION RATE > 60.0 (>35); GLUCOSE, FASTING 136 MG/DL (70-100); HDL CHOLESTEROL 51 MG/DL (>40); LDL CHOLESTEROL 54 MG/DL (<100); NON-HDL-C 84 MG/DL; POTASSIUM SERUM 4.1 MEQ/L (3.5-5.1); SODIUM LEVEL 140 MEQ/L (136-145); TOTAL PROTEIN 6.5 GM/DL (6.4-8.2); TRIGLYCERIDES LEVEL 149 MG/DL (<150)
[2018-09-12 10:28] LABS: MAU/CREAT RATIO 336.6 MCG/MG (0.0-30.0)
== END ==
LOC: M LAB 08:49
DX: E11.69 Type 2 diabetes mellitus with other specified complication (principal)
CPT/HCPCS: 80053

== ENCOUNTER → 2019-03-08 | Outpatient (CLI) | payer MEDICARE ==
[~2019-03-08] MED LIST changes: +FLOM0.4C39 PO; -FLOM5CAP PO
[2019-03-08 09:19] LABS: HEMOGLOBIN A1c 6.9 %
== END ==
LOC: M LAB 08:06
PROVIDERS: ATTEND Family Medicine
DX: E11.69 Type 2 diabetes mellitus with other specified complication (principal)

== ENCOUNTER → 2019-08-02 | Outpatient (CLI) | payer MEDICARE ==
[2019-08-02 09:31] LABS: BASO % 0.4 % (0.0-1.0); EOS # 0.2 10^3/uL (0.0-0.5); EOS % 2.5 % (0.0-3.0); HEMATOCRIT 49.1 % (42.0-52.0); HEMOGLOBIN 16.1 g/dl (13.5-17.5); LYMPH # 1.3 10^3/uL (1.5-5.0); LYMPH % 15.4 % (24.0-44.0); MEAN CORPUSCULAR HEMOGLOBIN 32.6 pg (27.0-33.0); MEAN CORPUSCULAR HGB CONC 32.8 g/dl (32.0-36.5); MEAN CORPUSCULAR VOLUME 99.4 fl (80.0-96.0); MONO # 0.4 10^3/uL (0.0-0.8); MONO % 5.4 % (0.0-5.0); NEUTROPHILS # 6.2 10^3/uL (1.5-8.5); NEUTROPHILS % 75.8 % (36.0-66.0); PLATELET COUNT, AUTOMATED 171 10^3/uL (150-450); RED BLOOD COUNT 4.94 10^6/uL (4.30-6.10); WHITE BLOOD COUNT 8.1 10^3/uL (4.0-10.0)
[2019-08-02 09:41] LABS: HEMOGLOBIN A1c 6.6 %
[2019-08-02 10:14] LABS: CREATININE, URINE 76.1 MG/DL; MAU/CREAT RATIO 216.8 MCG/MG (0.0-30.0)
[2019-08-02 10:16] LABS: ALBUMIN 3.4 GM/DL (3.2-5.2); ALT/SGPT 20 U/L (12-78); BILIRUBIN,TOTAL 0.7 MG/DL (0.2-1.0); BLOOD UREA NITROGEN 17 MG/DL (7-18); CALCIUM LEVEL 8.8 MG/DL (8.8-10.2); CARBON DIOXIDE LEVEL 29 MEQ/L (21-32); CHLORIDE LEVEL 103 MEQ/L (98-107); CHOLESTEROL LEVEL 150 MG/DL (<200); CHOLESTEROL RISK RATIO 4.166 (<5); CREATININE FOR GFR 1.11 MG/DL (0.70-1.30); GLOMERULAR FILTRATION RATE > 60.0 (>35); GLUCOSE, FASTING 293 MG/DL (70-100); HDL CHOLESTEROL 36 MG/DL (>40); LDL CHOLESTEROL 68 MG/DL (<100); NON-HDL-C 114 MG/DL; POTASSIUM SERUM 3.7 MEQ/L (3.5-5.1); SODIUM LEVEL 141 MEQ/L (136-145); TOTAL PROTEIN 6.7 GM/DL (6.4-8.2); TRIGLYCERIDES LEVEL 231 MG/DL (<150)
== END ==
LOC: M LAB 08:10
PROVIDERS: ATTEND Family Medicine
DX: E11.69 Type 2 diabetes mellitus with other specified complication (principal)

== ENCOUNTER → 2020-04-07 | Outpatient (CLI) | payer MEDICARE ==
[2020-04-07 09:04] LABS: BASO # 0.1 10^3/uL (0.0-0.2); BASO % 0.5 % (0.0-1.0); EOS # 0.4 10^3/uL (0.0-0.5); EOS % 2.8 % (0.0-3.0); LYMPH # 1.7 10^3/uL (1.5-5.0); LYMPH % 13.5 % (24.0-44.0); MEAN CORPUSCULAR HEMOGLOBIN 32.1 pg (27.0-33.0); MEAN CORPUSCULAR HGB CONC 32.6 g/dl (32.0-36.5); MEAN CORPUSCULAR VOLUME 98.3 fl (80.0-96.0); MONO # 0.8 10^3/uL (0.0-0.8); MONO % 6.5 % (0.0-5.0); NEUTROPHILS # 9.5 10^3/uL (1.5-8.5); NEUTROPHILS % 75.9 % (36.0-66.0); PLATELET COUNT, AUTOMATED 221 10^3/uL (150-450); RED BLOOD COUNT 4.68 10^6/uL (4.30-6.10); WHITE BLOOD COUNT 12.5 10^3/uL (4.0-10.0)
[2020-04-07 09:20] LABS: HEMOGLOBIN A1c 6.8 %
[2020-04-07 09:21] LABS: ALBUMIN 3.5 GM/DL (3.2-5.2); ALT/SGPT 22 U/L (12-78); BILIRUBIN,TOTAL 0.6 MG/DL (0.2-1.0); BLOOD UREA NITROGEN 25 MG/DL (7-18); CARBON DIOXIDE LEVEL 30 MEQ/L (21-32); CHLORIDE LEVEL 105 MEQ/L (98-107); CREATININE FOR GFR 1.11 MG/DL (0.70-1.30); GLOMERULAR FILTRATION RATE > 60.0 (>35); GLUCOSE, FASTING 170 MG/DL (70-100); POTASSIUM SERUM 4.2 MEQ/L (3.5-5.1); SODIUM LEVEL 141 MEQ/L (136-145); TOTAL PROTEIN 6.7 GM/DL (6.4-8.2)
== END ==
LOC: M LAB 08:17
PROVIDERS: ATTEND Family Medicine
DX: E11.69 Type 2 diabetes mellitus with other specified complication (principal)

== ENCOUNTER → 2020-08-27 | Outpatient (CLI) | payer MEDICARE ==
[~2020-08-27] MED LIST changes: +ASPI-546 PO; -ASPI1TAB15 PO
--- NOTE | 2020-08-27 14:31 | REPVR ---
PROCEDURE INFORMATION: Exam: CT Head Without Contrast Exam date and time: 08/27/2020 2:00 PM Age: 89 years old Clinical indication: Condition or disease; Other: Infarction; Additional info: Cerebral infarction, unspecified TECHNIQUE: Imaging protocol: Computed tomography of the head without contrast. Radiation optimization: All CT scans at this facility use at least one of these dose optimization techniques: automated exposure control; mA and/or kV adjustment per patient size (includes targeted exams where dose is matched to clinical indication); or iterative reconstruction. COMPARISON: No relevant prior studies available. FINDINGS: Brain: There is no acute intracranial hemorrhage, cerebral edema, or midline shift. 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 A chronic lacunar infarct is noted within the left da silva radiata. Age-related cerebral and cerebellar volume loss is present. Cerebral ventricles: Moderate ex vacuo dilation of the lateral and third ventricles is noted. Bones/joints: No acute fracture. Paranasal sinuses: There is no acute sinusitis. Mastoid air cells: The mastoid air cells are clear. Orbits: The included orbital structures are unremarkable. Vasculature: Atherosclerotic calcifications are seen involving the cavernous carotid arteries. Soft tissues: Unremarkable. IMPRESSION: 1. No acute intracranial abnormality. 2. Chronic findings as discussed above. Electronically signed by: Servando Winn On 08/27/2020 14:31:26 PM
== END ==
LOC: M RAD 13:51
PROVIDERS: ATTEND Psychiatry & Neurology Neurology
DX: I63.9 Cerebral infarction, unspecified (principal); E07.9 Disorder of thyroid, unspecified; F01.50 Vascular dementia, unspecified severity, without behavioral disturbance, psychotic disturbance, mood disturbance, and anxiety

== ENCOUNTER → 2020-08-27 | Outpatient (CLI) | payer MEDICARE ==
[2020-08-27 14:12] LABS: BASO # 0.1 10^3/uL (0.0-0.2); BASO % 0.5 % (0.0-1.0); EOS # 0.3 10^3/uL (0.0-0.5); EOS % 2.8 % (0.0-3.0); HEMATOCRIT 46.8 % (42.0-52.0); LYMPH # 1.8 10^3/uL (1.5-5.0); LYMPH % 16.4 % (24.0-44.0); MEAN CORPUSCULAR HEMOGLOBIN 31.3 pg (27.0-33.0); MEAN CORPUSCULAR HGB CONC 32.1 g/dl (32.0-36.5); MEAN CORPUSCULAR VOLUME 97.7 fl (80.0-96.0); MONO # 0.7 10^3/uL (0.0-0.8); MONO % 6.4 % (0.0-5.0); NEUTROPHILS # 7.8 10^3/uL (1.5-8.5); NEUTROPHILS % 73.2 % (36.0-66.0); PLATELET COUNT, AUTOMATED 202 10^3/uL (150-450); RED BLOOD COUNT 4.79 10^6/uL (4.30-6.10); WHITE BLOOD COUNT 10.7 10^3/uL (4.0-10.0)
[2020-08-27 14:38] LABS: ERYTHROCYTE SEDIMENTATION RATE 5 mm/hr (0-20)
[2020-08-27 14:52] LABS: ALBUMIN 3.4 GM/DL (3.2-5.2); ALT/SGPT 25 U/L (12-78); BILIRUBIN,TOTAL 0.7 MG/DL (0.2-1.0); BLOOD UREA NITROGEN 26 MG/DL (7-18); CARBON DIOXIDE LEVEL 29 MEQ/L (21-32); CHLORIDE LEVEL 106 MEQ/L (98-107); CREATININE FOR GFR 1.11 MG/DL (0.70-1.30); FOLATE > 24.0 NG/ML; FREE T4 1.28 NG/DL (0.76-1.46); GLOMERULAR FILTRATION RATE > 60.0 (>35); GLUCOSE, FASTING 138 MG/DL (70-100); POTASSIUM SERUM 4.4 MEQ/L (3.5-5.1); RHEUMATOID FACTOR QUANT < 10.0 IU/ML (<15.0); SODIUM LEVEL 138 MEQ/L (136-145); TOTAL PROTEIN 6.7 GM/DL (6.4-8.2); VITAMIN B12 LEVEL 1024 PG/ML
[2020-09-01 09:10] LABS: ANTINUCLEAR ANTIBODIES DIRECT Negative (Negative); VITAMIN B1 LEVEL WHOLE BLOOD 221.1 nmol/L (66.5-200.0); VITAMIN B6,PYRIDOXAL PHOSPHATE 8.9 ug/L (5.3-46.7); VITAMIN E(ALPHA TOCOPHEROL) 9.5 mg/L (9.0-29.0); VITAMIN E(GAMMA TOCOPHEROL) 0.3 mg/L (0.5-4.9)
== END ==
LOC: M LAB 13:37
PROVIDERS: ATTEND Psychiatry & Neurology Neurology
DX: E07.9 Disorder of thyroid, unspecified (principal); F03.90 Unspecified dementia, unspecified severity, without behavioral disturbance, psychotic disturbance, mood disturbance, and anxiety

== ENCOUNTER → 2021-04-16 | Outpatient (CLI) | payer MEDICARE ==
[~2021-04-16] MED LIST changes: -LISI-538 PO; +LISI20TA33 PO
[2021-04-16 09:13] LABS: BASO % 0.2 % (0.0-1.0); EOS # 0.2 10^3/uL (0.0-0.5); EOS % 2.1 % (0.0-3.0); HEMATOCRIT 48.2 % (42.0-52.0); HEMOGLOBIN 16.1 g/dl (13.5-17.5); LYMPH # 1.6 10^3/uL (1.5-5.0); LYMPH % 15.4 % (24.0-44.0); MEAN CORPUSCULAR HEMOGLOBIN 32.5 pg (27.0-33.0); MEAN CORPUSCULAR HGB CONC 33.4 g/dl (32.0-36.5); MEAN CORPUSCULAR VOLUME 97.4 fl (80.0-96.0); MONO # 0.7 10^3/uL (0.0-0.8); MONO % 6.7 % (2.0-8.0); NEUTROPHILS # 7.7 10^3/uL (1.5-8.5); NEUTROPHILS % 75.3 % (36.0-66.0); PLATELET COUNT, AUTOMATED 187 10^3/uL (150-450); RED BLOOD COUNT 4.95 10^6/uL (4.30-6.10); WHITE BLOOD COUNT 10.2 10^3/uL (4.0-10.0)
[2021-04-16 09:29] LABS: HEMOGLOBIN A1c 6.4 %
[2021-04-16 09:38] LABS: ALBUMIN 3.5 GM/DL (3.2-5.2); ALT/SGPT 21 U/L (12-78); BLOOD UREA NITROGEN 28 MG/DL (7-18); CALCIUM LEVEL 8.9 MG/DL (8.8-10.2); CARBON DIOXIDE LEVEL 33 MEQ/L (21-32); CHLORIDE LEVEL 104 MEQ/L (98-107); CHOLESTEROL LEVEL 114 MG/DL (<200); CHOLESTEROL RISK RATIO 2.375 (<5); CREATININE FOR GFR 0.98 MG/DL (0.70-1.30); GLOMERULAR FILTRATION RATE > 60.0 (>35); GLUCOSE, FASTING 126 MG/DL (70-100); HDL CHOLESTEROL 48 MG/DL (>40); LDL CHOLESTEROL 52 MG/DL (<100); NON-HDL-C 66 MG/DL; POTASSIUM SERUM 4.4 MEQ/L (3.5-5.1); SODIUM LEVEL 140 MEQ/L (136-145); TOTAL PROTEIN 6.7 GM/DL (6.4-8.2); TRIGLYCERIDES LEVEL 71 MG/DL (<150)
[2021-04-16 09:46] LABS: CREATININE, URINE 92.7 MG/DL; MAU/CREAT RATIO 293.4 MCG/MG (0.0-30.0)
== END ==
LOC: M LAB 08:26
PROVIDERS: ATTEND Family Medicine
DX: E11.69 Type 2 diabetes mellitus with other specified complication (principal)

== ENCOUNTER 2022-05-17 07:26 | Inpatient (IN) | payer BC, MEDICARE ==
[~2022-05-17] VITALS: Ht 165.1 cm; Wt 46.2 kg
[2022-05-17 09:07] LABS: RSV AMPLIFICATION NEGATIVE (NEGATIVE)
[2022-05-17 09:10] LABS: BASO % 0.3 % (0.0-1.0); EOS # 0.1 10^3/uL (0.0-0.5); EOS % 0.9 % (0.0-3.0); HEMATOCRIT 46.2 % (42.0-52.0); HEMOGLOBIN 15.1 g/dl (13.5-17.5); LYMPH # 1.1 10^3/uL (1.5-5.0); LYMPH % 9.5 % (24.0-44.0); MEAN CORPUSCULAR HGB CONC 32.7 g/dl (32.0-36.5); MEAN CORPUSCULAR VOLUME 97.9 fl (80.0-96.0); MONO # 0.7 10^3/uL (0.0-0.8); MONO % 5.9 % (2.0-8.0); NEUTROPHILS # 9.6 10^3/uL (1.5-8.5); NEUTROPHILS % 82.9 % (36.0-66.0); PLATELET COUNT, AUTOMATED 170 10^3/uL (150-450); RED BLOOD COUNT 4.72 10^6/uL (4.30-6.10); WHITE BLOOD COUNT 11.6 10^3/uL (4.0-10.0)
[2022-05-17 09:47] LABS: BLOOD UREA NITROGEN 26 MG/DL (7-18); CALCIUM LEVEL 8.8 MG/DL (8.8-10.2); CARBON DIOXIDE LEVEL 28 MEQ/L (21-32); CHLORIDE LEVEL 107 MEQ/L (98-107); CHOLESTEROL LEVEL 101 MG/DL (<200); CHOLESTEROL RISK RATIO 2.525 (<5); CREATININE FOR GFR 0.98 MG/DL (0.70-1.30); DIGOXIN LEVEL 1.3 NG/ML (0.5-2.0); GLOMERULAR FILTRATION RATE > 60.0 (>35); GLUCOSE, FASTING 104 MG/DL (70-100); HDL CHOLESTEROL 40 MG/DL (>40); LDL CHOLESTEROL 48 MG/DL (<100); NON-HDL-C 61 MG/DL; POTASSIUM SERUM 4.4 MEQ/L (3.5-5.1); SODIUM LEVEL 143 MEQ/L (136-145); TRIGLYCERIDES LEVEL 66 MG/DL (<150)
[2022-05-17 10:12] LABS: HEMOGLOBIN A1c 6.2 %
[2022-05-17] MEDS ORDERED: XARE15TA PO (10:55)
[2022-05-17] MEDS ORDERED: METF-838 PO (10:55)
[2022-05-17] MEDS ORDERED: HOME MED LIST COMPLETE! XX SCH (10:55)
[2022-05-17] MEDS ORDERED: MELA10CA6 PO (10:55)
[2022-05-17] MEDS ORDERED: DIGO0.123 PO (10:55)
[2022-05-17] MEDS ORDERED: METO1TAB87 PO (10:55)
[2022-05-17] MEDS ORDERED: ACET1TAB55 PO (10:55)
[2022-05-17] MEDS ORDERED: ACETAMINOPHEN TAB 650MG DOSE (2X325MG) PO PRN (11:30)
[2022-05-17] MEDS ORDERED: NICOTINE 14 MG/24 HR TRANSDERMAL TD ONE (11:50)
[2022-05-17] MEDS ORDERED: GLUCAGON INJ 1MG VIAL SC PRN (11:50)
[2022-05-17] MEDS ORDERED: DEXTROSE 50% 50 ML SYRINGE IV PRN (11:50)
[2022-05-17] MEDS ORDERED: GLUCOSE 4GM CHEW TABLET PO PRN (11:50)
[2022-05-17] MEDS: INSULIN LISPRO (NovoLOG) PER UNIT SC SCH ×3 (12:00→20:45)
[2022-05-17 12:33] VITALS: BP_SYST 111; BP_SYST 97; BP_SYST 98; BP_DIAS 50; BP_DIAS 56; BP_DIAS 57
[2022-05-17 12:35] VITALS: BP 111/57
[2022-05-17 12:50] LABS: CK-MB VALUE MASS 5.9 NG/ML (<3.6); MB/CK RELATIVE INDEX 4.61 (< OR =4)
[2022-05-17 13:00] VITALS: O2SAT 96
[2022-05-17] MEDS: NS 1,000 ML IV SCH (13:01)
[2022-05-17] MEDS: ATORVASTATIN 10 MG TAB PO SCH (13:02)
[2022-05-17] MEDS: DIGOXIN 0.125 MG TAB PO SCH (13:02)
[2022-05-17 14:00] VITALS: O2SAT 96
[2022-05-17 16:20] VITALS: BP 104/56
[2022-05-17 17:57] LABS: CK-MB VALUE MASS 5.6 NG/ML (<3.6); MB/CK RELATIVE INDEX 4.34 (< OR =4)
[2022-05-17 20:00] VITALS: BP 156/71
[2022-05-17] MEDS ORDERED: QUEtiapine FUMARATE 12.5 MG HALF-TAB PO ONE (20:00)
[2022-05-17] MEDS ORDERED: LORazepam 2 MG/ML VIAL IV STA (20:30)
[2022-05-17] MEDS: RAMELTEON 8 MG TAB (ROZEREM) PO SCH (20:43)
[2022-05-17] MEDS: METOPROLOL TART 25 MG TABLET PO SCH (20:44)
[2022-05-18] VITALS: BP 108/57
[2022-05-18 00:25] LABS: CK-MB VALUE MASS 4.9 NG/ML (<3.6); MB/CK RELATIVE INDEX 3.86 (< OR =4)
[2022-05-18] MEDS: NS 1,000 ML IV SCH (02:04)
[2022-05-18 04:00] VITALS: BP 121/57
[2022-05-18 04:11] LABS: HEMATOCRIT 42.7 % (42.0-52.0); HEMOGLOBIN 13.7 g/dl (13.5-17.5); MEAN CORPUSCULAR HEMOGLOBIN 31.5 pg (27.0-33.0); MEAN CORPUSCULAR HGB CONC 32.1 g/dl (32.0-36.5); MEAN CORPUSCULAR VOLUME 98.2 fl (80.0-96.0); PLATELET COUNT, AUTOMATED 146 10^3/uL (150-450); RED BLOOD COUNT 4.35 10^6/uL (4.30-6.10); WHITE BLOOD COUNT 10.1 10^3/uL (4.0-10.0)
[2022-05-18 04:42] LABS: BLOOD UREA NITROGEN 21 MG/DL (7-18); CALCIUM LEVEL 8.3 MG/DL (8.8-10.2); CARBON DIOXIDE LEVEL 28 MEQ/L (21-32); CHLORIDE LEVEL 111 MEQ/L (98-107); CREATININE FOR GFR 0.76 MG/DL (0.70-1.30); GLOMERULAR FILTRATION RATE > 60.0 (>35); GLUCOSE, FASTING 90 MG/DL (70-100); MAGNESIUM LEVEL 1.3 MG/DL (1.8-2.4); POTASSIUM SERUM 4.6 MEQ/L (3.5-5.1); SODIUM LEVEL 145 MEQ/L (136-145)
[2022-05-18] MEDS: INSULIN LISPRO (NovoLOG) PER UNIT SC SCH ×4 (07:30→21:00)
[2022-05-18] MEDS: MAG SULF 1GM/100ML (MAG RUN) 1 GM in IV 1 EA IV SCH ×2 (07:49→09:12)
[2022-05-18 08:00] VITALS: BP 127/67
[2022-05-18] MEDS: ATORVASTATIN 10 MG TAB PO SCH (08:37)
[2022-05-18] MEDS: METOPROLOL TART 25 MG TABLET PO SCH ×2 (08:37→21:53)
[2022-05-18] MEDS: DIGOXIN 0.125 MG TAB PO SCH (08:37)
[2022-05-18 12:00] VITALS: BP 142/66
[2022-05-18 16:00] VITALS: BP 153/70
[2022-05-18] MEDS: QUEtiapine FUMARATE 25 MG TAB PO SCH (17:40)
[2022-05-18 20:00] VITALS: BP 149/68
[2022-05-18] MEDS: CARBAMIDE PEROXIDE 6.5% OTIC SOLN 15ML AU SCH (21:53)
[2022-05-18] MEDS: RIVAROXABAN 15MG TAB (XARELTO) PO SCH (21:54)
[2022-05-18] MEDS: RAMELTEON 8 MG TAB (ROZEREM) PO SCH (21:54)
[2022-05-19] VITALS: BP 150/76
[2022-05-19 04:00] VITALS: BP 123/63
[2022-05-19 05:21] LABS: HEMATOCRIT 40.6 % (42.0-52.0); HEMOGLOBIN 13.6 g/dl (13.5-17.5); MEAN CORPUSCULAR HEMOGLOBIN 32.3 pg (27.0-33.0); MEAN CORPUSCULAR HGB CONC 33.5 g/dl (32.0-36.5); MEAN CORPUSCULAR VOLUME 96.4 fl (80.0-96.0); PLATELET COUNT, AUTOMATED 164 10^3/uL (150-450); RED BLOOD COUNT 4.21 10^6/uL (4.30-6.10); WHITE BLOOD COUNT 10.3 10^3/uL (4.0-10.0)
[2022-05-19 05:47] LABS: BLOOD UREA NITROGEN 16 MG/DL (7-18); CALCIUM LEVEL 8.2 MG/DL (8.8-10.2); CARBON DIOXIDE LEVEL 27 MEQ/L (21-32); CHLORIDE LEVEL 106 MEQ/L (98-107); CREATININE FOR GFR 0.66 MG/DL (0.70-1.30); GLOMERULAR FILTRATION RATE > 60.0 (>35); GLUCOSE, FASTING 129 MG/DL (70-100); MAGNESIUM LEVEL 1.5 MG/DL (1.8-2.4); POTASSIUM SERUM 3.9 MEQ/L (3.5-5.1); SODIUM LEVEL 141 MEQ/L (136-145)
[2022-05-19] MEDS ORDERED: MAG SULF 1GM/100ML (MAG RUN) 1 GM in IV 1 EA IV ONE ×2 (08:00→10:00)
[2022-05-19 08:07] VITALS: BP 117/58
[2022-05-19] MEDS ORDERED: BISACODYL 10 MG SUPP PR ONE (08:30)
[2022-05-19] MEDS ORDERED: MOM 30ML SUSPENSION UDC PO ONE (08:30)
[2022-05-19] MEDS: ATORVASTATIN 10 MG TAB PO SCH (08:36)
[2022-05-19] MEDS: INSULIN LISPRO (NovoLOG) PER UNIT SC SCH ×4 (08:36→20:26)
[2022-05-19] MEDS: DIGOXIN 0.125 MG TAB PO SCH (08:37)
[2022-05-19] MEDS: METOPROLOL TART 25 MG TABLET PO SCH ×2 (08:37→20:26)
[2022-05-19] MEDS: CARBAMIDE PEROXIDE 6.5% OTIC SOLN 15ML AU SCH ×2 (08:38→20:35)
[2022-05-19 10:33] VITALS: BP 109/58
[2022-05-19 14:30] LABS: HEMATOCRIT 46.6 % (42.0-52.0); HEMOGLOBIN 15.5 g/dl (13.5-17.5)
[2022-05-19 18:06] VITALS: BP 120/62
[2022-05-19] MEDS: QUEtiapine FUMARATE 25 MG TAB PO SCH (18:45)
[2022-05-19 19:49] VITALS: BP 108/56
[2022-05-19] MEDS: RAMELTEON 8 MG TAB (ROZEREM) PO SCH ×2 (20:29→20:35)
[2022-05-19] MEDS: RIVAROXABAN 15MG TAB (XARELTO) PO SCH ×2 (20:29→20:36)
[2022-05-19] MEDS ORDERED: HALOPERIDOL 5MG/ML VIAL (J1630 PER 1) IV ONE ×2 (20:50→21:20)
[2022-05-20 04:30] VITALS: BP 123/54
[2022-05-20 06:19] LABS: HEMATOCRIT 43.7 % (42.0-52.0); HEMOGLOBIN 14.4 g/dl (13.5-17.5); MEAN CORPUSCULAR HEMOGLOBIN 31.5 pg (27.0-33.0); MEAN CORPUSCULAR VOLUME 95.6 fl (80.0-96.0); PLATELET COUNT, AUTOMATED 171 10^3/uL (150-450); RED BLOOD COUNT 4.57 10^6/uL (4.30-6.10); WHITE BLOOD COUNT 8.8 10^3/uL (4.0-10.0)
[2022-05-20 06:40] LABS: BLOOD UREA NITROGEN 19 MG/DL (7-18); CALCIUM LEVEL 8.3 MG/DL (8.8-10.2); CARBON DIOXIDE LEVEL 30 MEQ/L (21-32); CHLORIDE LEVEL 102 MEQ/L (98-107); CREATININE FOR GFR 0.82 MG/DL (0.70-1.30); GLOMERULAR FILTRATION RATE > 60.0 (>35); GLUCOSE, FASTING 110 MG/DL (70-100); SODIUM LEVEL 140 MEQ/L (136-145)
[2022-05-20] MEDS: INSULIN LISPRO (NovoLOG) PER UNIT SC SCH ×4 (07:30→21:00)
[2022-05-20] MEDS: ATORVASTATIN 10 MG TAB PO SCH (09:14)
[2022-05-20] MEDS: DIGOXIN 0.125 MG TAB PO SCH (09:14)
[2022-05-20] MEDS: METOPROLOL TART 25 MG TABLET PO SCH ×2 (09:14→21:00)
[2022-05-20] MEDS: CARBAMIDE PEROXIDE 6.5% OTIC SOLN 15ML AU SCH ×2 (09:15→21:00)
[2022-05-20] MEDS: QUEtiapine FUMARATE 25 MG TAB PO SCH (17:18)
[2022-05-20] MEDS ORDERED: HALOPERIDOL 5MG/ML VIAL (J1630 PER 1) IV PRN (17:25)
[2022-05-20] MEDS: RAMELTEON 8 MG TAB (ROZEREM) PO SCH (21:00)
[2022-05-20] MEDS: RIVAROXABAN 15MG TAB (XARELTO) PO SCH (21:00)
[2022-05-21 05:52] VITALS: BP 139/61
[2022-05-21 06:49] LABS: HEMATOCRIT 40.8 % (42.0-52.0); HEMOGLOBIN 13.5 g/dl (13.5-17.5); MEAN CORPUSCULAR HEMOGLOBIN 31.5 pg (27.0-33.0); MEAN CORPUSCULAR HGB CONC 33.1 g/dl (32.0-36.5); MEAN CORPUSCULAR VOLUME 95.3 fl (80.0-96.0); PLATELET COUNT, AUTOMATED 179 10^3/uL (150-450); RED BLOOD COUNT 4.28 10^6/uL (4.30-6.10); WHITE BLOOD COUNT 8.9 10^3/uL (4.0-10.0)
[2022-05-21 07:00] LABS: BLOOD UREA NITROGEN 19 MG/DL (7-18); CALCIUM LEVEL 8.7 MG/DL (8.8-10.2); CARBON DIOXIDE LEVEL 29 MEQ/L (21-32); CHLORIDE LEVEL 105 MEQ/L (98-107); CREATININE FOR GFR 0.72 MG/DL (0.70-1.30); GLOMERULAR FILTRATION RATE > 60.0 (>35); GLUCOSE, FASTING 106 MG/DL (70-100); MAGNESIUM LEVEL 1.6 MG/DL (1.8-2.4); POTASSIUM SERUM 3.9 MEQ/L (3.5-5.1); SODIUM LEVEL 139 MEQ/L (136-145)
[2022-05-21] MEDS: INSULIN LISPRO (NovoLOG) PER UNIT SC SCH ×3 (07:30→17:30)
[2022-05-21] MEDS: ATORVASTATIN 10 MG TAB PO SCH (09:39)
[2022-05-21] MEDS: DIGOXIN 0.125 MG TAB PO SCH (09:39)
[2022-05-21 09:40] VITALS: BP 115/55
[2022-05-21] MEDS: METOPROLOL TART 25 MG TABLET PO SCH (09:40)
[2022-05-21] MEDS: CARBAMIDE PEROXIDE 6.5% OTIC SOLN 15ML AU SCH (09:42)
[2022-05-21] MEDS ORDERED: QUET1TAB17 PO (17:14)
[2022-05-21] MEDS ORDERED: LISI10TA22 PO (17:19)
[2022-05-21] MEDS: QUEtiapine FUMARATE 25 MG TAB PO SCH (17:56)
== END 2022-05-21 19:09 | disposition home or self-care (01) | DRG 82 ==
LOC: EDBD 07:26 → M ED 08:27 → M ED INP 11:36 → ENRESERV 11:57 → M PCU 12:30 → M MSPAV 05-19 18:03
PROVIDERS: ADMIT Internal Medicine; ATTEND Internal Medicine Nephrology
PROC: B246ZZZ Ultrasonography of Right and Left Heart (ICD-10-PCS; principal; 2022-05-17)
DX: S06.9X9A Unspecified intracranial injury with loss of consciousness of unspecified duration, initial encounter (principal); E43 Unspecified severe protein-calorie malnutrition; Z68.1 Body mass index [BMI] 19.9 or less, adult; F03.91 Unspecified dementia, unspecified severity, with behavioral disturbance; R29.6 Repeated falls; I48.91 Unspecified atrial fibrillation; Z79.01 Long term (current) use of anticoagulants; I10 Essential (primary) hypertension; N40.0 Benign prostatic hyperplasia without lower urinary tract symptoms; E78.5 Hyperlipidemia, unspecified; E11.9 Type 2 diabetes mellitus without complications; F17.210 Nicotine dependence, cigarettes, uncomplicated; Z90.49 Acquired absence of other specified parts of digestive tract; D72.829 Elevated white blood cell count, unspecified; S02.2XXA Fracture of nasal bones, initial encounter for closed fracture; W19.XXXA Unspecified fall, initial encounter; Y92.009 Unspecified place in unspecified non-institutional (private) residence as the place of occurrence of the external cause; I49.5 Sick sinus syndrome; Z95.0 Presence of cardiac pacemaker; Z20.822 Contact with and (suspected) exposure to COVID-19; Z79.84 Long term (current) use of oral hypoglycemic drugs; Z79.899 Other long term (current) drug therapy; I27.20 Pulmonary hypertension, unspecified; I35.0 Nonrheumatic aortic (valve) stenosis; Z66 Do not resuscitate

== ENCOUNTER 2022-05-23 01:25 | Emergency (ER) | payer MEDICARE ==
[~2022-05-23 01:25] MED LIST changes: +ACET1TAB55 PO; +DIGO0.123 PO; +LISI10TA22 PO; +MELA10CA6 PO; +METF-838 PO; +METO1TAB87 PO; +QUET1TAB17 PO
[2022-05-23 04:50] VITALS: BP 124/88
== END 2022-05-23 04:52 | disposition home or self-care (01) ==
LOC: M ED 01:25
DX: Z04.3 Encounter for examination and observation following other accident (principal); W19.XXXA Unspecified fall, initial encounter; Y92.099 Unspecified place in other non-institutional residence as the place of occurrence of the external cause; M19.012 Primary osteoarthritis, left shoulder; M75.102 Unspecified rotator cuff tear or rupture of left shoulder, not specified as traumatic; Z79.899 Other long term (current) drug therapy

== ENCOUNTER 2022-05-25 16:27 | Inpatient (IN) | payer MEDICARE ==
[2022-05-25 18:06] LABS: BASO # 0.1 10^3/uL (0.0-0.2); BASO % 0.5 % (0.0-1.0); EOS # 0.3 10^3/uL (0.0-0.5); EOS % 2.3 % (0.0-3.0); HEMATOCRIT 44.9 % (42.0-52.0); HEMOGLOBIN 14.6 g/dl (13.5-17.5); LYMPH # 1.2 10^3/uL (1.5-5.0); LYMPH % 10.6 % (24.0-44.0); MEAN CORPUSCULAR HEMOGLOBIN 32.3 pg (27.0-33.0); MEAN CORPUSCULAR HGB CONC 32.5 g/dl (32.0-36.5); MEAN CORPUSCULAR VOLUME 99.3 fl (80.0-96.0); MONO # 0.8 10^3/uL (0.0-0.8); MONO % 7.6 % (2.0-8.0); NEUTROPHILS # 8.4 10^3/uL (1.5-8.5); NEUTROPHILS % 78.2 % (36.0-66.0); PLATELET COUNT, AUTOMATED 198 10^3/uL (150-450); RED BLOOD COUNT 4.52 10^6/uL (4.30-6.10); WHITE BLOOD COUNT 10.8 10^3/uL (4.0-10.0)
[2022-05-25 18:30] LABS: CK-MB VALUE MASS 4.2 NG/ML (<3.6); MB/CK RELATIVE INDEX 4.52 (< OR =4)
[2022-05-25 18:39] LABS: ALT/SGPT 47 U/L (12-78); BILIRUBIN,TOTAL 0.5 MG/DL (0.2-1.0); BLOOD UREA NITROGEN 23 MG/DL (7-18); CALCIUM LEVEL 8.5 MG/DL (8.8-10.2); CARBON DIOXIDE LEVEL 29 MEQ/L (21-32); CHLORIDE LEVEL 106 MEQ/L (98-107); CREATININE FOR GFR 0.81 MG/DL (0.70-1.30); GLOMERULAR FILTRATION RATE > 60.0 (>35); GLUCOSE, FASTING 112 MG/DL (70-100); SODIUM LEVEL 140 MEQ/L (136-145); TOTAL PROTEIN 6.5 GM/DL (6.4-8.2)
[2022-05-25] MEDS ORDERED: NICOTINE 21MG/24HR 1 EA TRANSDERMAL TD ONE (19:00)
[2022-05-25] MEDS ORDERED: risperiDONE 1 MG TAB PO ONE (19:00)
[2022-05-25 19:15] LABS: RSV AMPLIFICATION NEGATIVE (NEGATIVE)
[2022-05-25] MEDS ORDERED: LISI10TA22 PO (19:34)
[2022-05-25] MEDS ORDERED: HOME MED LIST COMPLETE! XX SCH (19:35)
[2022-05-25] MEDS ORDERED: QUEtiapine FUMARATE 12.5 MG HALF-TAB PO SCH (21:00)
[2022-05-25] MEDS ORDERED: diphenhydrAMINE 50MG/ML VIAL (J1200) IV ONE (21:15)
[2022-05-25] MEDS ORDERED: OLANZapine INTRAMUSCULAR 10MG VIAL IM ONE (21:15)
[2022-05-25] MEDS: METOPROLOL TART 25 MG TABLET PO SCH (22:59)
[2022-05-25] MEDS ORDERED: GLUCOSE 4GM CHEW TABLET PO PRN (23:40)
[2022-05-25] MEDS ORDERED: DEXTROSE 50% 50 ML SYRINGE IV PRN (23:40)
[2022-05-25] MEDS ORDERED: GLUCAGON INJ 1MG VIAL SC PRN (23:40)
[2022-05-25] MEDS ORDERED: NICOTINE 14 MG/24 HR TRANSDERMAL TD PRN (23:55)
[2022-05-26 05:25] VITALS: BP 149/87
[2022-05-26 06:01] LABS: HEMATOCRIT 42.6 % (42.0-52.0); HEMOGLOBIN 14.4 g/dl (13.5-17.5); MEAN CORPUSCULAR HEMOGLOBIN 32.3 pg (27.0-33.0); MEAN CORPUSCULAR HGB CONC 33.8 g/dl (32.0-36.5); MEAN CORPUSCULAR VOLUME 95.5 fl (80.0-96.0); PLATELET COUNT, AUTOMATED 183 10^3/uL (150-450); RED BLOOD COUNT 4.46 10^6/uL (4.30-6.10); WHITE BLOOD COUNT 8.3 10^3/uL (4.0-10.0)
[2022-05-26 06:11] LABS: INR 1.25; PROTHROMBIN TIME 16.1 SECONDS (12.7-14.5)
[2022-05-26 06:12] LABS: PARTIAL THROMBOPLASTIN TIME 39.1 SECONDS (25.9-37.0)
[2022-05-26 06:29] LABS: BLOOD UREA NITROGEN 18 MG/DL (7-18); CALCIUM LEVEL 8.1 MG/DL (8.8-10.2); CARBON DIOXIDE LEVEL 30 MEQ/L (21-32); CHLORIDE LEVEL 104 MEQ/L (98-107); CREATININE FOR GFR 0.66 MG/DL (0.70-1.30); GLOMERULAR FILTRATION RATE > 60.0 (>35); GLUCOSE, FASTING 121 MG/DL (70-100); MAGNESIUM LEVEL 1.3 MG/DL (1.8-2.4); POTASSIUM SERUM 3.8 MEQ/L (3.5-5.1); SODIUM LEVEL 139 MEQ/L (136-145)
[2022-05-26] MEDS: DIGOXIN 0.125 MG TAB PO SCH (09:21)
[2022-05-26] MEDS: METOPROLOL TART 25 MG TABLET PO SCH ×2 (09:21→20:27)
[2022-05-26 19:57] VITALS: BP 111/49
[2022-05-26] MEDS ORDERED: TAMSULOSIN 0.4 MG CAP PO ONE (20:05)
[2022-05-26] MEDS: QUEtiapine FUMARATE 25 MG TAB PO SCH (20:26)
[2022-05-26] MEDS: RIVAROXABAN 15MG TAB (XARELTO) PO SCH (20:27)
[2022-05-26] MEDS ORDERED: diphenhydrAMINE 50MG/ML VIAL (J1200) IV ONE (22:15)
[2022-05-26] MEDS ORDERED: OLANZapine INTRAMUSCULAR 10MG VIAL IM ONE (22:15)
[2022-05-26] MEDS ORDERED: OLANZapine INTRAMUSCULAR 10MG VIAL IM PRN (22:30)
[2022-05-27 04:02] VITALS: BP 112/50
[2022-05-27 06:30] LABS: BASO # 0.1 10^3/uL (0.0-0.2); BASO % 0.3 % (0.0-1.0); EOS # 0.1 10^3/uL (0.0-0.5); EOS % 0.5 % (0.0-3.0); HEMATOCRIT 38.1 % (42.0-52.0); HEMOGLOBIN 12.8 g/dl (13.5-17.5); LYMPH # 1.4 10^3/uL (1.5-5.0); LYMPH % 8.7 % (24.0-44.0); MEAN CORPUSCULAR HGB CONC 33.6 g/dl (32.0-36.5); MEAN CORPUSCULAR VOLUME 95.3 fl (80.0-96.0); MONO % 6.3 % (2.0-8.0); NEUTROPHILS # 13.2 10^3/uL (1.5-8.5); NEUTROPHILS % 83.3 % (36.0-66.0); PLATELET COUNT, AUTOMATED 176 10^3/uL (150-450); WHITE BLOOD COUNT 15.8 10^3/uL (4.0-10.0)
[2022-05-27 06:56] LABS: BLOOD UREA NITROGEN 25 MG/DL (7-18); CALCIUM LEVEL 8.2 MG/DL (8.8-10.2); CARBON DIOXIDE LEVEL 28 MEQ/L (21-32); CHLORIDE LEVEL 104 MEQ/L (98-107); CREATININE FOR GFR 0.93 MG/DL (0.70-1.30); GLOMERULAR FILTRATION RATE > 60.0 (>35); GLUCOSE, FASTING 141 MG/DL (70-100); POTASSIUM SERUM 4.2 MEQ/L (3.5-5.1); SODIUM LEVEL 139 MEQ/L (136-145)
[2022-05-27] MEDS: LACTOBACILLUS ACIDOPHILUS CAP (BACID) PO SCH (10:35)
[2022-05-27] MEDS: METOPROLOL TART 25 MG TABLET PO SCH ×2 (10:36→20:15)
[2022-05-27] MEDS: DIGOXIN 0.125 MG TAB PO SCH (10:36)
[2022-05-27] MEDS: CEFUROXIME 500 MG TAB PO SCH ×2 (10:36→20:35)
[2022-05-27] MEDS: MAGNESIUM OXIDE 400MG TAB (MAG-OX) PO SCH ×2 (10:37→20:35)
[2022-05-27 19:35] VITALS: BP 99/49
[2022-05-27] MEDS: TAMSULOSIN 0.4 MG CAP PO SCH (20:35)
[2022-05-27] MEDS: QUEtiapine FUMARATE 25 MG TAB PO SCH (20:35)
[2022-05-27] MEDS: diphenhydrAMINE 25MG CAP PO PRN (20:35)
[2022-05-27] MEDS: RIVAROXABAN 15MG TAB (XARELTO) PO SCH (20:35)
[2022-05-27] MEDS: ACETAMINOPHEN TAB 650MG DOSE (2X325MG) PO PRN (20:36)
[2022-05-27 22:00] VITALS: BP 96/44
[2022-05-27] MEDS ORDERED: NS 1,000 ML IV SCH (22:40)
[2022-05-28 02:00] VITALS: BP 118/57
[2022-05-28 05:24] VITALS: BP 99/42
[2022-05-28 05:38] VITALS: BP 110/55
[2022-05-28 06:10] LABS: BASO % 0.4 % (0.0-1.0); EOS # 0.3 10^3/uL (0.0-0.5); HEMATOCRIT 37.8 % (42.0-52.0); HEMOGLOBIN 12.3 g/dl (13.5-17.5); LYMPH # 1.8 10^3/uL (1.5-5.0); LYMPH % 20.7 % (24.0-44.0); MEAN CORPUSCULAR HEMOGLOBIN 31.2 pg (27.0-33.0); MEAN CORPUSCULAR HGB CONC 32.5 g/dl (32.0-36.5); MEAN CORPUSCULAR VOLUME 95.9 fl (80.0-96.0); MONO # 0.6 10^3/uL (0.0-0.8); MONO % 6.6 % (2.0-8.0); NEUTROPHILS # 5.8 10^3/uL (1.5-8.5); NEUTROPHILS % 68.8 % (36.0-66.0); PLATELET COUNT, AUTOMATED 161 10^3/uL (150-450); RED BLOOD COUNT 3.94 10^6/uL (4.30-6.10); WHITE BLOOD COUNT 8.5 10^3/uL (4.0-10.0)
[2022-05-28 06:42] LABS: BLOOD UREA NITROGEN 27 MG/DL (7-18); CALCIUM LEVEL 8.3 MG/DL (8.8-10.2); CARBON DIOXIDE LEVEL 28 MEQ/L (21-32); CHLORIDE LEVEL 107 MEQ/L (98-107); CREATININE FOR GFR 0.84 MG/DL (0.70-1.30); GLOMERULAR FILTRATION RATE > 60.0 (>35); GLUCOSE, FASTING 112 MG/DL (70-100); POTASSIUM SERUM 4.4 MEQ/L (3.5-5.1); SODIUM LEVEL 142 MEQ/L (136-145)
[2022-05-28 08:29] LABS: MAGNESIUM LEVEL 1.5 MG/DL (1.8-2.4)
[2022-05-28] MEDS: CEFUROXIME 500 MG TAB PO SCH ×2 (08:45→20:05)
[2022-05-28] MEDS: MAGNESIUM OXIDE 400MG TAB (MAG-OX) PO SCH ×2 (08:45→20:06)
[2022-05-28] MEDS: LACTOBACILLUS ACIDOPHILUS CAP (BACID) PO SCH (08:46)
[2022-05-28] MEDS: DIGOXIN 0.125 MG TAB PO SCH (08:46)
[2022-05-28] MEDS: METOPROLOL TART 25 MG TABLET PO SCH ×2 (08:47→20:06)
[2022-05-28 09:38] LABS: HEMOGLOBIN A1c 6.3 %
[2022-05-28] MEDS: TAMSULOSIN 0.4 MG CAP PO SCH (20:05)
[2022-05-28] MEDS: QUEtiapine FUMARATE 25 MG TAB PO SCH (20:06)
[2022-05-28] MEDS: RIVAROXABAN 15MG TAB (XARELTO) PO SCH (20:06)
[2022-05-28] MEDS: diphenhydrAMINE 25MG CAP PO PRN (20:06)
[2022-05-28 22:00] VITALS: BP 138/61
[2022-05-28] MEDS ORDERED: traZODone 25MG PER 1/2 TABLET PO ONE (23:40)
[2022-05-28] MEDS ORDERED: QUEtiapine FUMARATE 25 MG TAB PO ONE (23:40)
[2022-05-29] MEDS: RAMELTEON 8 MG TAB (ROZEREM) PO PRN ×2 (00:32→20:31)
[2022-05-29 06:01] VITALS: BP 128/55
[2022-05-29 08:53] VITALS: BP 98/69
[2022-05-29] MEDS: METOPROLOL TART 25 MG TABLET PO SCH ×2 (09:00→20:32)
[2022-05-29] MEDS: DIGOXIN 0.125 MG TAB PO SCH (09:00)
[2022-05-29 09:10] VITALS: BP 100/66
[2022-05-29] MEDS: CEFUROXIME 500 MG TAB PO SCH ×2 (09:19→20:31)
[2022-05-29] MEDS: LACTOBACILLUS ACIDOPHILUS CAP (BACID) PO SCH (09:20)
[2022-05-29] MEDS: MAGNESIUM OXIDE 400MG TAB (MAG-OX) PO SCH ×2 (09:20→20:31)
[2022-05-29] MEDS: QUEtiapine FUMARATE 12.5 MG HALF-TAB PO SCH (18:36)
[2022-05-29] MEDS: QUEtiapine FUMARATE 25 MG TAB PO SCH (18:36)
[2022-05-29] MEDS: diphenhydrAMINE 25MG CAP PO PRN (20:30)
[2022-05-29] MEDS: TAMSULOSIN 0.4 MG CAP PO SCH (20:31)
[2022-05-29] MEDS: RIVAROXABAN 15MG TAB (XARELTO) PO SCH (20:31)
[2022-05-30 05:49] VITALS: BP 120/61
[2022-05-30] MEDS: CEFUROXIME 500 MG TAB PO SCH ×2 (08:13→20:32)
[2022-05-30] MEDS: LACTOBACILLUS ACIDOPHILUS CAP (BACID) PO SCH (08:13)
[2022-05-30] MEDS: MAGNESIUM OXIDE 400MG TAB (MAG-OX) PO SCH ×2 (08:14→20:32)
[2022-05-30] MEDS: METOPROLOL TART 25 MG TABLET PO SCH ×2 (08:18→20:37)
[2022-05-30] MEDS: DIGOXIN 0.125 MG TAB PO SCH (08:18)
[2022-05-30] MEDS: QUEtiapine FUMARATE 12.5 MG HALF-TAB PO SCH (17:38)
[2022-05-30] MEDS: QUEtiapine FUMARATE 25 MG TAB PO SCH (17:38)
[2022-05-30] MEDS: diphenhydrAMINE 25MG CAP PO PRN (20:32)
[2022-05-30] MEDS: RIVAROXABAN 15MG TAB (XARELTO) PO SCH (20:32)
[2022-05-30] MEDS: RAMELTEON 8 MG TAB (ROZEREM) PO PRN (20:32)
[2022-05-30] MEDS: TAMSULOSIN 0.4 MG CAP PO SCH (20:32)
[2022-05-31 06:15] VITALS: BP 115/62
[2022-05-31] MEDS: METOPROLOL TART 25 MG TABLET PO SCH ×3 (09:00→21:00)
[2022-05-31] MEDS: LACTOBACILLUS ACIDOPHILUS CAP (BACID) PO SCH (09:19)
[2022-05-31] MEDS: CEFUROXIME 500 MG TAB PO SCH ×2 (09:19→21:15)
[2022-05-31] MEDS: MAGNESIUM OXIDE 400MG TAB (MAG-OX) PO SCH ×2 (09:19→21:15)
[2022-05-31] MEDS: DIGOXIN 0.125 MG TAB PO SCH (09:20)
[2022-05-31] MEDS: ACETAMINOPHEN TAB 650MG DOSE (2X325MG) PO PRN (09:20)
[2022-05-31] MEDS: QUEtiapine FUMARATE 25 MG TAB PO SCH (17:04)
[2022-05-31] MEDS: QUEtiapine FUMARATE 12.5 MG HALF-TAB PO SCH (17:04)
[2022-05-31] MEDS: RIVAROXABAN 15MG TAB (XARELTO) PO SCH (21:14)
[2022-05-31] MEDS: RAMELTEON 8 MG TAB (ROZEREM) PO PRN (21:14)
[2022-05-31] MEDS: TAMSULOSIN 0.4 MG CAP PO SCH (21:14)
[2022-05-31] MEDS: diphenhydrAMINE 25MG CAP PO PRN (21:15)
[2022-06-01 06:00] VITALS: BP 107/58
[2022-06-01] MEDS: CEFUROXIME 500 MG TAB PO SCH ×2 (08:57→22:47)
[2022-06-01] MEDS: LACTOBACILLUS ACIDOPHILUS CAP (BACID) PO SCH (08:57)
[2022-06-01] MEDS: MAGNESIUM OXIDE 400MG TAB (MAG-OX) PO SCH ×2 (08:57→22:46)
[2022-06-01] MEDS: DIGOXIN 0.125 MG TAB PO SCH (08:59)
[2022-06-01] MEDS: METOPROLOL TART 25 MG TABLET PO SCH ×2 (08:59→21:00)
[2022-06-01] MEDS: QUEtiapine FUMARATE 25 MG TAB PO SCH (18:30)
[2022-06-01] MEDS: QUEtiapine FUMARATE 12.5 MG HALF-TAB PO SCH (18:30)
[2022-06-01] MEDS ORDERED: risperiDONE 0.5 MG TAB PO ONE (22:20)
[2022-06-01] MEDS: RIVAROXABAN 15MG TAB (XARELTO) PO SCH (22:46)
[2022-06-01] MEDS: ACETAMINOPHEN TAB 650MG DOSE (2X325MG) PO PRN (22:46)
[2022-06-01] MEDS: TAMSULOSIN 0.4 MG CAP PO SCH (22:46)
[2022-06-02 05:41] VITALS: BP 112/54
[2022-06-02] MEDS: METOPROLOL TART 25 MG TABLET PO SCH ×2 (09:00→21:15)
[2022-06-02] MEDS: CEFUROXIME 500 MG TAB PO SCH ×2 (09:55→21:13)
[2022-06-02] MEDS: LACTOBACILLUS ACIDOPHILUS CAP (BACID) PO SCH (09:55)
[2022-06-02] MEDS: MAGNESIUM OXIDE 400MG TAB (MAG-OX) PO SCH ×2 (09:56→21:13)
[2022-06-02] MEDS: DIGOXIN 0.125 MG TAB PO SCH (09:56)
[2022-06-02] MEDS: QUEtiapine FUMARATE 12.5 MG HALF-TAB PO SCH (17:36)
[2022-06-02] MEDS: QUEtiapine FUMARATE 25 MG TAB PO SCH (17:36)
[2022-06-02] MEDS: TAMSULOSIN 0.4 MG CAP PO SCH (21:14)
[2022-06-02] MEDS: RIVAROXABAN 15MG TAB (XARELTO) PO SCH (21:15)
[2022-06-03] MEDS: METOPROLOL TART 25 MG TABLET PO SCH ×2 (08:50→21:00)
[2022-06-03] MEDS: DIGOXIN 0.125 MG TAB PO SCH ×2 (08:52→10:10)
[2022-06-03] MEDS: MAGNESIUM OXIDE 400MG TAB (MAG-OX) PO SCH ×2 (08:52→21:00)
[2022-06-03] MEDS: LACTOBACILLUS ACIDOPHILUS CAP (BACID) PO SCH (08:52)
[2022-06-03 13:17] LABS: HEMATOCRIT 39.9 % (42.0-52.0); HEMOGLOBIN 13.3 g/dl (13.5-17.5); MEAN CORPUSCULAR HGB CONC 33.3 g/dl (32.0-36.5); MEAN CORPUSCULAR VOLUME 96.1 fl (80.0-96.0); PLATELET COUNT, AUTOMATED 231 10^3/uL (150-450); RED BLOOD COUNT 4.15 10^6/uL (4.30-6.10); WHITE BLOOD COUNT 8.5 10^3/uL (4.0-10.0)
[2022-06-03 13:33] LABS: BLOOD UREA NITROGEN 35 MG/DL (7-18); CARBON DIOXIDE LEVEL 29 MEQ/L (21-32); CHLORIDE LEVEL 102 MEQ/L (98-107); CREATININE FOR GFR 0.86 MG/DL (0.70-1.30); GLOMERULAR FILTRATION RATE > 60.0 (>35); GLUCOSE, FASTING 115 MG/DL (70-100); POTASSIUM SERUM 4.6 MEQ/L (3.5-5.1); SODIUM LEVEL 135 MEQ/L (136-145)
[2022-06-03] MEDS: QUEtiapine FUMARATE 12.5 MG HALF-TAB PO SCH (17:34)
[2022-06-03] MEDS: QUEtiapine FUMARATE 25 MG TAB PO SCH (17:34)
[2022-06-03] MEDS ORDERED: FLOM0.4C39 PO (19:44)
[2022-06-03] MEDS ORDERED: QUET1TAB17 PO (19:44)
[2022-06-03] MEDS ORDERED: MAGN400T2 PO (19:44)
[2022-06-03] MEDS ORDERED: METO1TAB32 PO (19:47)
[2022-06-03] MEDS: RIVAROXABAN 15MG TAB (XARELTO) PO SCH (21:00)
[2022-06-03] MEDS: TAMSULOSIN 0.4 MG CAP PO SCH (21:00)
[2022-06-04 06:00] VITALS: BP 122/64
[2022-06-04] MEDS: LACTOBACILLUS ACIDOPHILUS CAP (BACID) PO SCH (07:55)
[2022-06-04] MEDS: METOPROLOL TART 25 MG TABLET PO SCH ×2 (07:56→20:54)
[2022-06-04] MEDS: DIGOXIN 0.125 MG TAB PO SCH (07:56)
[2022-06-04] MEDS: MAGNESIUM OXIDE 400MG TAB (MAG-OX) PO SCH ×2 (07:57→20:53)
[2022-06-04] MEDS: QUEtiapine FUMARATE 12.5 MG HALF-TAB PO SCH (18:11)
[2022-06-04] MEDS: QUEtiapine FUMARATE 25 MG TAB PO SCH (18:11)
[2022-06-04] MEDS: TAMSULOSIN 0.4 MG CAP PO SCH (20:53)
[2022-06-04] MEDS: RIVAROXABAN 15MG TAB (XARELTO) PO SCH (20:53)
[2022-06-05 06:00] VITALS: BP 105/53
[2022-06-05] MEDS: MAGNESIUM OXIDE 400MG TAB (MAG-OX) PO SCH ×3 (08:40→20:25)
[2022-06-05] MEDS: LACTOBACILLUS ACIDOPHILUS CAP (BACID) PO SCH ×2 (08:40→08:45)
[2022-06-05] MEDS: DIGOXIN 0.125 MG TAB PO SCH ×2 (08:42→08:45)
[2022-06-05] MEDS: METOPROLOL TART 25 MG TABLET PO SCH ×2 (08:42→20:25)
[2022-06-05] MEDS: QUEtiapine FUMARATE 12.5 MG HALF-TAB PO SCH (18:39)
[2022-06-05] MEDS: QUEtiapine FUMARATE 25 MG TAB PO SCH (18:39)
[2022-06-05 20:18] VITALS: BP 110/47
[2022-06-05] MEDS: TAMSULOSIN 0.4 MG CAP PO SCH (20:24)
[2022-06-05] MEDS: RIVAROXABAN 15MG TAB (XARELTO) PO SCH (20:25)
[2022-06-06 06:10] VITALS: BP 111/47
[2022-06-06] MEDS: DIGOXIN 0.125 MG TAB PO SCH (09:00)
[2022-06-06] MEDS: LACTOBACILLUS ACIDOPHILUS CAP (BACID) PO SCH (09:00)
[2022-06-06] MEDS: MAGNESIUM OXIDE 400MG TAB (MAG-OX) PO SCH ×2 (09:00→20:41)
[2022-06-06] MEDS: METOPROLOL TART 25 MG TABLET PO SCH ×2 (09:00→20:44)
[2022-06-06] MEDS: QUEtiapine FUMARATE 12.5 MG HALF-TAB PO SCH (17:20)
[2022-06-06] MEDS: QUEtiapine FUMARATE 25 MG TAB PO SCH (17:20)
[2022-06-06] MEDS: TAMSULOSIN 0.4 MG CAP PO SCH (20:40)
[2022-06-06] MEDS: RIVAROXABAN 15MG TAB (XARELTO) PO SCH (20:40)
[2022-06-06] MEDS: ACETAMINOPHEN TAB 650MG DOSE (2X325MG) PO PRN (20:41)
[2022-06-07 06:28] VITALS: BP 110/52
[2022-06-07] MEDS: METOPROLOL TART 25 MG TABLET PO SCH ×2 (09:00→21:05)
[2022-06-07] MEDS: LACTOBACILLUS ACIDOPHILUS CAP (BACID) PO SCH (09:31)
[2022-06-07] MEDS: DIGOXIN 0.125 MG TAB PO SCH (09:32)
[2022-06-07] MEDS: MAGNESIUM OXIDE 400MG TAB (MAG-OX) PO SCH ×2 (09:33→21:05)
[2022-06-07 12:46] LABS: HEMATOCRIT 41.9 % (42.0-52.0); HEMOGLOBIN 13.5 g/dl (13.5-17.5); MEAN CORPUSCULAR HEMOGLOBIN 31.8 pg (27.0-33.0); MEAN CORPUSCULAR HGB CONC 32.2 g/dl (32.0-36.5); MEAN CORPUSCULAR VOLUME 98.8 fl (80.0-96.0); PLATELET COUNT, AUTOMATED 226 10^3/uL (150-450); RED BLOOD COUNT 4.24 10^6/uL (4.30-6.10); WHITE BLOOD COUNT 8.7 10^3/uL (4.0-10.0)
[2022-06-07 13:41] LABS: BLOOD UREA NITROGEN 38 MG/DL (7-18); CARBON DIOXIDE LEVEL 32 MEQ/L (21-32); CHLORIDE LEVEL 102 MEQ/L (98-107); CREATININE FOR GFR 0.91 MG/DL (0.70-1.30); GLOMERULAR FILTRATION RATE > 60.0 (>35); GLUCOSE, FASTING 110 MG/DL (70-100); POTASSIUM SERUM 4.5 MEQ/L (3.5-5.1); SODIUM LEVEL 135 MEQ/L (136-145)
[2022-06-07 13:42] LABS: CALCIUM LEVEL 8.9 MG/DL (8.8-10.2)
[2022-06-07] MEDS: QUEtiapine FUMARATE 12.5 MG HALF-TAB PO SCH (18:15)
[2022-06-07] MEDS: QUEtiapine FUMARATE 25 MG TAB PO SCH (18:15)
[2022-06-07 20:00] VITALS: BP 113/52
[2022-06-07] MEDS: ACETAMINOPHEN TAB 650MG DOSE (2X325MG) PO PRN (21:05)
[2022-06-07] MEDS: TAMSULOSIN 0.4 MG CAP PO SCH (21:05)
[2022-06-07] MEDS: RIVAROXABAN 15MG TAB (XARELTO) PO SCH (21:05)
[2022-06-08 06:00] VITALS: BP 123/61
[2022-06-08 09:00] VITALS: BP 96/51
[2022-06-08] MEDS: MAGNESIUM OXIDE 400MG TAB (MAG-OX) PO SCH (09:00)
[2022-06-08] MEDS: LACTOBACILLUS ACIDOPHILUS CAP (BACID) PO SCH (09:00)
[2022-06-08] MEDS: METOPROLOL TART 25 MG TABLET PO SCH (09:00)
[2022-06-08] MEDS: DIGOXIN 0.125 MG TAB PO SCH (09:00)
== END 2022-06-08 10:15 | DRG 884 ==
LOC: EDBD 16:27 → M ED 16:27 → M ED INP 16:28 → ENRESERV 21:04 → M MSPAV 22:33 → OBSVTOIN 05-27 11:01 → M MSPAV 05-27 19:00
PROVIDERS: ADMIT Family Medicine; ATTEND Internal Medicine Nephrology
DX: F03.90 Unspecified dementia, unspecified severity, without behavioral disturbance, psychotic disturbance, mood disturbance, and anxiety (principal); E43 Unspecified severe protein-calorie malnutrition; N39.0 Urinary tract infection, site not specified; Z68.1 Body mass index [BMI] 19.9 or less, adult; I10 Essential (primary) hypertension; E11.9 Type 2 diabetes mellitus without complications; I48.91 Unspecified atrial fibrillation; E78.5 Hyperlipidemia, unspecified; F17.210 Nicotine dependence, cigarettes, uncomplicated; R29.6 Repeated falls; E83.42 Hypomagnesemia; N40.0 Benign prostatic hyperplasia without lower urinary tract symptoms; Z95.0 Presence of cardiac pacemaker; Z79.01 Long term (current) use of anticoagulants; R33.9 Retention of urine, unspecified; B96.4 Proteus (mirabilis) (morganii) as the cause of diseases classified elsewhere; Z79.899 Other long term (current) drug therapy; Z66 Do not resuscitate